=== PATIENT | male | born 1955 | race Caucasian/White ===

== ENCOUNTER 2018-07-12 07:54 | Day surgery (SDC) | payer OTHER ==
--- NOTE | 2018-07-05 11:52 | EKG ---
Test Date: 2018-07-05 Test Time: 11:52:34 Racing Board Marker: RONAN MEASUREMENT RESULTS: Intervals: Rate: 77 SC: 148 QRSD: 90 QT: 370 QTc: 418 Lena: P: 61 SC: 148 QRS: 33 T: 63 INTERPRETIVE STATEMENTS: Normal sinus rhythm Normal ECG Compared to ECG 11/23/2011 21:12:44 No significant changes Electronically Signed On 07-05-18 11:51:27 CUSTOMER ADVISOR SPECIALIST by Sonu Randall
--- NOTE | 2018-07-05 12:21 | RAD REPORT ---
EXAM DESCRIPTION: RAD - Chest Pa And Lat (2 Views) - 07/05/2018 12:14 pm CLINICAL HISTORY: preop Chest pain. COMPARISON: CHEST PA AND LAT 2 VIEW dated 02/12/2009; CHEST PA AND LAT 2 VIEW dated 07/29/2008 TECHNIQUE: PA and lateral views of the chest were obtained. FINDINGS: The lungs are hyperexpanded compatible with COPD. Mild chronic bilateral pleural thickenin g. The heart is upper limit of normal in size. No fracture or aggressive bony process. IMPRESSION: COPD without acute process identified.
[2018-07-05 12:44] LABS: Absolute Lymphocytes (CBC) 2.4 K/uL (0.7-4.9); Absolute Monocytes 0.9 K/uL (0.1-1.3); Absolute Neutrophil 7.7 K/uL (1.8-8.0); Basophils % 1.3 % (0-1.3); Eosinophils % 3.8 % (0-4.4); Hematocrit 49.3 % (39.6-49.0); Lymphocytes % 20.8 % (15.3-44.8); MPV 9.7 fL (7.6-11.3); Monocytes % 7.5 % (3.3-12.3); RBC Red Blood Cell Count 5.27 M/uL (4.33-5.43)
[2018-07-05 12:49] LABS: Potassium 3.7 mmol/L (3.5-5.1)
--- OUTSIDE RECORDS SUMMARY | 2018-07-12 08:01 | XMS REPORT | Clinical Summary ---
:1955 Author Organization [facility] Address [address] [place] [address] Care Team Providers Name Role Phone Susanne Loja MD Primary Care Provider Allergies Active Allergy Reactions Severity Noted Date Comments Penicillins Medications Medication Sig Dispensed Refills Start Date End Date Status amLODIPine (NORVASC) 10 0 06/26/2016 Active mg tablet clopidogrel (PLAVIX) 75 Take 75 mg by 0 06/26/2016 Active mg tablet mouth daily. gabapentin (NEURONTIN) 4 (four) times a 0 07/29/2016 Active 600 mg tablet day. TOUJEO SOLOSTAR 300 0 07/07/2016 Active unit/mL (1.5 mL) insulin pen losartan-hydrochlorothi Take 1 tablet by 0 06/26/2016 Active azide (HYZAAR) 100-12.5 mouth daily. mg per tablet rosuvastatin (CRESTOR) Take 20 mg by 0 06/26/2016 Active 20 MG tablet mouth daily. JANUMET 50-1,000 mg per Take by mouth 2 0 07/23/2016 Active tablet (two) times a day with meals. fenofibrate (TRICOR) Take 145 mg by 0 Active 145 MG tablet mouth daily. ranitidine (ZANTAC) 150 Take 150 mg by 0 Active MG tablet mouth 2 (two) times a day. metFORMIN (GLUCOPHAGE) Take 1 tablet 0 Active 1,000 mg tablet twice a day by oral route. Active Problems Problem Noted Date CAD in [place] artery 02/07/2017 Carotid disease, bilateral 02/07/2017 Essential hypertension 08/02/2016 Coronary arteriosclerosis 08/02/2016 Carotid artery disease 08/02/2016 Encounters Date Type Specialty Care Team Description 09/12/2017 Office Visit Cardiology Nasir Huff MD Essential hypertension (Primary Dx); Bilateral carotid artery disease; CAD in [place] artery after 07/11/2017 Social History Tobacco Use Types Packs/Day Years Used Date Current Every Day Smoker 0.5 Smokeless Tobacco: Never Used Alcohol Use Drinks/Week oz/Week Comments Yes Sex Assigned at Date Recorded Not on file Job Start Date Occupation Industry Not on file Not on file Not on file Travel History Travel Start Travel End No recent travel history available. Last Filed Vital Signs Vital Sign Reading Time Taken Blood Pressure 145/66 09/12/2017 8:06 AM CDT Pulse 73 09/12/2017 8:06 AM CDT Temperature - - Respiratory Rate - - Oxygen Saturation - - Inhaled Oxygen Concentration - - Weight 115 kg (253 lb) 09/12/2017 8:06 AM CDT Height 177.8 cm (5' 10") 09/12/2017 8:06 AM CDT Body Mass Index 36.3 09/12/2017 8:06 AM CDT Plan of Treatment Health Maintenance Due Date Last Done Comments COLON CANCER SCREENING 2004 SHINGLES VACCINES (1 of 2) 2004 INFLUENZA VACCINE 12/27/2017 Results Not on fileafter 07/11/2017 Insurance Payer Benefit Plan / Group Subscriber ID Type Phone Address BCBS BCBS CHOICE PPO/FEDERAL EMPL PPO xxxxxxxxxxxx PPO Advance Directives Patient has advance care planning documents on file. For more information, please contact:[place] [address]
[2018-07-12] MEDS ORDERED: CEFOXITIN/SWI 1gm 1 GM/10 ML SYR ONE (08:25)
[2018-07-12] MEDS ORDERED: NA CHLORIDE 0.9% 1,000 ML ONE (08:25)
[2018-07-12] MEDS ORDERED: PROPOFOL 200 MG/20 ML VIAL IV ONE (10:34)
[2018-07-12] MEDS ORDERED: FENTANYL CITR 100 MCG/2 ML ONE ×2 (10:35→11:03)
[2018-07-12] MEDS ORDERED: MIDAZOLAM HCL 2 MG/2 ML INJ ONE (10:36)
[2018-07-12] MEDS ORDERED: LIDOCAINE 1% MPF 2 ML AMPULE ONE (10:37)
[2018-07-12] MEDS ORDERED: ONDANSETRON 4 MG/2 ML VIAL ONE (10:37)
[2018-07-12] MEDS ORDERED: BUPIVACAINE 0.5% PF 10 ML VIAL ONE ×2 (10:42→10:43)
[2018-07-12 11:45] VITALS: O2SAT 94
[2018-07-12 12:23] VITALS: BP 112/58; TEMP 97.8
--- NOTE | 2018-07-12 22:26 | OP ---
Date of Procedure: 07/12/2018 Surgeon: Han Rizvi MD Preoperative Diagnoses: Perianal warts and hemorrhoids. Postoperative Diagnoses: Perianal warts and hemorrhoids. Procedures Performed: Exam under anesthesia, rigid proctoscopy, excision perianal warts x7. Estimated Blood Loss: Minimal. Specimen: Anal warts. Findings: As above. Anesthesia: General. Complications: None. Disposition: The patient tolerated the procedure in stable condition and was taken to the recovery i n good general condition. Description Of Procedure: The patient was brought to the OR and placed in supine position. General anesthesia was begun. The patient was placed in lithotomy position, prepped and draped in usual ster ile fashion. Exam under anesthesia revealed multiple anal warts in the anterior midline, posterior m idline, left superior, left lower, right superior, right middle, right lower. Rigid proctoscopy was performed. No evidence of intrarenal disease. Subsequently, Marcaine 0.5% was infiltrated locally. Harmonic Scalpel was used and excised all of the 7 areas where there were multiple anal warts. They were labeled appropriately and sent to Pathology. Then, wound was examined. There was no evidence of bleeding noted. Sterile dressing was applied. The patient was awakened and taken to Recovery in good general condition. Please note, the patient did have a few small hemorrhoids but they did not need any surgical intervention at this time. Subsequently, the patient was awakened and taken to Recovery in good general condition. MAGO/NURIA Voice ID: [id number] Report ID: [id number]
--- NOTE | 2018-07-12 22:35 | DS ---
Date of Discharge: 07/12/2018 Discharge Note: The patient will go to Day Surgery and home when stable. Disposition: Home. Condition: Stable. Discharge Instructions: Resume home medications and diet. Activity as tolerated. No heavy lifting. Sitz bath q.i.d. High-fiber diet. Metamucil 1 tablespoon t.i.d., Colace 100 mg p.o. b.i.d., Proct or HC 2.5% to anus b.i.d. and p.r.n., and Tylenol No. 3 one tablet p.o. q.4 h. p.r.n. pain. Follow u p in my office in 2 weeks, call for appointment /NURIA Voice ID: [id number] Report ID: [id number]
== END 2018-07-12 12:43 | disposition home or self-care (01) ==
LOC: OR 07:54
PROVIDERS: ATTEND Surgery
PROC: 0HB8XZZ Excision of Buttock Skin, External Approach (ICD-10-PCS; principal; 2018-07-12 09:00)
DX: A63.0 Anogenital (venereal) warts (principal); K64.9 Unspecified hemorrhoids; F17.210 Nicotine dependence, cigarettes, uncomplicated
CPT/HCPCS: 36415; 71046; 80048; 82962; 85025; 88305; 93005; J2001; J2250; J2405; J2704; J3010; J7030

== ENCOUNTER 2019-12-17 06:37 | Emergency (ER) | payer OTHER ==
--- OUTSIDE RECORDS SUMMARY | 2019-12-17 06:39 | XMS REPORT | Clinical Summary ---
:1955 Author Organization [facility] Address [address] [place] [address] Care Team Providers Name Role Phone Susanne [...] 0 07/29/2016 Active 600 mg tablet day. 4-5 times a day TOUJEO SOLOSTAR 300 85 0 07/07/2016 Active unit/mL (1.5 mL) insulin pen losartan-hydrochlorothi Take 1 tablet by 0 7 Active azide (HYZAAR) 100-12.5 mouth daily. mg [...] tablet twice a day by oral route. pantoprazole (PROTONIX) Take 20 mg by 0 Active 20 MG EC tablet mouth 2 (two) times a day. Active Problems Problem Noted Date CAD in [place] artery 02/07/2017 Carotid disease, bilateral 02/07/2017 Essential hypertension 08/02/2016 Coronary arteriosclerosis 08/02/2016 Carotid artery disease 08/02/2016 Encounters Date Type Specialty Care Team Description 07/02/2019 Office Visit Cardiology Janice Umanzor MD Pre-op e xam (Primary Dx); CAD in [place] a rtery; Essential hyper tension 06/19/2019 Orders Only Cardiology Gala Prasad MA CAD in [place] artery (Primary Dx) 06/19/2019 Orders Only Cardiology Kanwal Yepez MA after 12/16/2018 Social History Tobacco Use Types Packs/Day Years Used Date Current Every Day Smoker 0.5 Smokeless Tobacco: Never Used Alcohol Use Drinks/Week oz/Week Comments Yes Sex Assigned at Date Recorded Not on file Job Start Date Occupation Industry Not on file Not on file Not on file Travel History Travel Start Travel End No recent travel history available. Last Filed Vital Signs Not on file Plan of Treatment Date Type Specialty Care Team Description 06/30/2020 Office Visit Cardiology Janice Umanzor MD [address] [facility] [address] [place], [place] [phone] Health Maintenance Due Date Last Done Comments COLONOSCOPY SCREENING 2004 SHINGLES VACCINES (#1) 2004 65+ PNEUMOCOCCAL VACCINE (1 of 2 - PCV13) 2019 INFLUENZA VACCINE 12/28/2019 03/12/2019 Procedures Procedure Name Priority Date/Time Associated Comments Diagnosis NM MYOCARDIAL Routine 07/12/2019 4:36 PM Pre-op exam Results for this PERFUSION STRESS EQUIPMENT DRIVER CAD in [place] procedure are in REST 1 DAY artery the results section. CV STRESS TEST Routine 07/09/2019 8:15 AM Pre-op exam Results for this EQUIPMENT DRIVER CAD in [place] procedure are in artery the results section. ECG 12-LEAD Routine 07/02/2019 2:02 PM Pre-op exam Results for this EQUIPMENT DRIVER procedure are i n the results section. after 12/16/2018 Results Nm myocardial perfusion (07/12/2019 4:36 PM EQUIPMENT DRIVER) Pathologist Sig nature Target HR 155.00 bpm Expedit.usID Specimen Narrative Performed At [facility] Nuclear Cardi ology and Cardiac CT [address] [address] Myocardial Pe rfusion Imaging Report Stress ECG tracings are availab le in [employer], [employer] and [employer] All ECG interpretations a re included in this report Pat.Name: LYSSA SANCHES Pat.ID: [id number] .Date: 07/09/2019 Refer.MD: JANICE UMANZOR MD Exam Time: 10:28:00 AM Study Type:Myocardial Perfusion Imaging Height: 70in Weight: 253lb BSA: 2.31 m2 Ag e: 1955,64Y Sex: MALE Nuclea r Tech:Koby Jerez [facility] Nuclear Event ID:[id number] Order ID: [id number] Reason for Study:CAD, unspecified*, Pre Op Procedures: Single Day Rest / Stress Race: C Clinical Symptoms:Regadenoson SUMMARY: BASELINE ECG Normal Sinus Rhythm STRESS TEST RESULTS Maximal Predicted HR 155 beats/minute 85% Maximal Predicted HR 132 beats/minute Stress Test Duration 1 minutes 00 seco nds Resting Heart Rate 80 beats/minute Max imal Heart Rate 97 beats/minute Resting Blood Pressure 146/88 mmHg Max imal Blood Pressure 146/88 mmHg % Maximal Heart Rate Achieved 93% Symptoms During Test Flushing, Headach e Reason for Stopping Test As per regade noson protocol Maximal ST-segment shift None Stress-Induced Arrhythmias None Ischemic electrocardiographic changes (S T-segment depression) did not occur at peak regadenoson stress. STRESS TEST INTERPRETATION Normal vanessa l regadenoson stress test. SCINTIGRAPHIC RESULTS Perfusion Defect Size (% LV) 0 % Total 0 % Ischemia 0 % Scar Left Ventricular Perfusion Results There is normal tracer distribution duri ng stress and rest. Gated SPECT Results The post-stress left ventricular ejectio n fraction is 53 % with normal regional wall motion and left ventricula r thickening. Left ventricular end-diastolic volume is 150 ml; end-systolic volume is 70 ml. The left ventricle is of normal size at stress and at rest. The right ventricle is of normal size with n ormal wall motion. Conclusion Normal regadenoson Tc-99m sestamibi myoc ardial perfusion study. The left ventricular ejection fraction is no rmal. Comments Patients with a normal stress myocardial perfusion study have a low (< 1%) annual risk of cardiac or nonf atal myocardial infarction. Study Quality/Artifacts The study quality is good. The mild redu ction in mid and basal inferior wall counts during stress is due to diaphragmatic and other soft tissue attenuation artifacts rather than coronary artery disease. Comparison to Previous Study None available. FINDINGS: Signed 07/11/2019 07:02 PM Ashutosh Calderon MD Procedure Note Interface, Radiology Results In - 2019 7:02 PM [facility] Nuclear Cardiology and Cardiac CT [address] [place] [address] Myocardial Perfusion I maging Report Stress ECG tracings are available in [employer], [employer] and [employer] All ECG interpretations are in cluded in this report Pat.Name: LYSSA SANCHES I D: [id number] .Date: 07/09/2019 Refer .MD: JANICE UMANZOR MD Exam Time: 10:28:00 AM Study Type:Myocardial Perfusion Imaging Height: 70in Weigh t: 253lb BSA: 2.31 m2 Age: 1 1955,64Y Sex: MALE Nucle ar Tech:Koby Jerez [facility] Nuclear Event ID:[id number] Order ID: [id number] Reason for Study:CAD, unspecified*, Pre Op Procedures: Single Day Rest / Stress Race: C Clinical Symptoms:Regadenoson SUMMARY: BASELINE ECG Normal Sinus Rhythm STRESS TEST RESULTS Maximal Predicted HR 155 beats/minute 8 5% Maximal Predicted HR 132 beats/minute Stress Test Duration 1 minutes 00 secon ds Resting Heart Rate 80 beats/minute Maxi mal Heart Rate 97 beats/minute Resting Blood Pressure 146/88 mmHg Maxi mal Blood Pressure 146/88 mmHg % Maximal Heart Rate Achieved 93% Symptoms During Test Flushing, Headache Reason for Stopping Test As per regaden oson protocol Maximal ST-segment shift None Stress-Induced Arrhythmias None Ischemic electrocardiographic changes (S T-segment depression) did not occur at peak regadenoson stress. STRESS TEST INTERPRETATION Normal vanessa l regadenoson stress test. SCINTIGRAPHIC RESULTS Perfusion Defect Size (% LV) 0 % Total 0 % Ischemia 0 % Scar Left Ventricular Perfusion Results There is normal tracer distribution duri ng stress and rest. Gated SPECT Results The post-stress left ventricular ejectio n fraction is 53 % with normal regional wall motion and left ventricula r thickening. Left ventricular end-diastolic volume is 150 ml; end-systolic volume is 70 ml. The left ventricle is of normal size at stress and at rest. The right ventricle is of normal size with n ormal wall motion. Conclusion Normal regadenoson Tc-99m sestamibi myoc ardial perfusion study. The left ventricular ejection fraction is no rmal. Comments Patients with a normal stress myocardial perfusion study have a low (< 1%) annual risk of cardiac or nonf atal myocardial infarction. Study Quality/Artifacts The study quality is good. The mild redu ction in mid and basal inferior wall counts during stress is d ue to diaphragmatic and other soft tissue attenuation artifacts rather than coronary artery disease. Comparison to Previous Study None available. FINDINGS: Signed 07/11/2019 07:02 PM Ashutosh Calderon MD Performing Organization Address City/State/Zipcode Phone Number [facility] [phone] [place] [address] Cv stress test (07/09/2019 8:15 AM EQUIPMENT DRIVER) Resting HR 83 [facility] Resting BP 146 [facility] Peak MET Achieved 1.0 H MUSE Protocol Name Melissa [facility] Time in Exercise 00:01:00 [facility] Phase Max Systolic BP 146 [facility] Max Diastolic BP 88 [facility] Max Heart Rate 97 [facility] Max Predicted Heart 155 [facility] Rate Target HR Formula (220 - Age)*85% [facility] Test Indication CORONARY ARTERY DISEASE [facility] Arrhy During Ex [facility] ECG Interp Before EX [facility] ECG Interp During Ex [facility] Ex Summary Comment H MUSE Chest Pain Statement none [facility] Overall HR Response [facility] to Exercise Overall BP Response [facility] To Exercise Reason for As per Lexiscan H MUSE Termination protocol Stress Test -Waveform interpreted [facility] Impression in report associated with image study. No interpretation is provided as part of this Stress ECG report.-Electronically Signed By Yumiko HEATON, Ashutosh Leary ([id number]), commissioning editor Dg Vargas ([id number]) on 07/15/2019 3:43:03 PM Specimen Narrative Performed At This result has an attachment that is no t available. Performing Organization Address City/[facility] Phone Number [facility] [address] [place] [address] ECG 12 lead (07/02/2019 2:02 PM EQUIPMENT DRIVER) Pathologist Sig nature Ventricular rate 89 [facility] Atrial rate 89 [facility] OK interval 150 [facility] QRSD interval 92 [facility] QT interval 364 [facility] QTC interval 442 [facility] P axis 1 62 [facility] QRS axis 1 73 [facility] T wave axis 19 H MUSE EKG impression Normal sinus [facility] rhythm-Normal ECG-No previous ECGs available-Electronicall y Signed By Darwin HEATON, [facility] ([id number]) on 07/02/2019 2:50:05 PM Specimen Narrative Performed At This result has an attachment that is no t available. Performing Organization Address City/State/Zipcode Phone Number [employer] [facility] [address] [place] [address] after 12/16/2018 Advance Directives For more information, please contact: [phone] Type Date Recorded Patient Search Planner Explanati on Advance Directives, Living Will and Medical Power of Manager Clinical Research
[2019-12-17] MEDS ORDERED: NA CHLORIDE 0.9% 1,000 ML ONE (07:15)
--- NOTE | 2019-12-17 07:45 | RAD REPORT ---
EXAM DESCRIPTION: RAD - Chest Single View - 12/17/2019 7:26 am CLINICAL HISTORY: COUGH COMPARISON: Two view chest June 2018 TECHNIQUE: AP portable chest image was obtained 12/17/2019 7:26 am . FINDINGS: No focal mass or consolidation. Prominent interstitial pattern is similar to comparison. N o ground-glass opacification confirmed. Heart and vasculature are normal. No measurable pleural effus ion and no pneumothorax. No acute bony abnormality seen. No acute aortic findings suspected. IMPRESSION: No acute cardiopulmonary process. Chest is not significantly different from comparison.
[2019-12-17 08:10] LABS: Absolute Lymphocytes (CBC) 0.6 K/uL (0.7-4.9); Basophils % 0.6 % (0-1.3); Hematocrit 42.5 % (39.6-49.0); Lymphocytes % 5.5 % (15.3-44.8); MPV 8.8 fL (7.6-11.3); RBC Red Blood Cell Count 4.56 M/uL (4.33-5.43)
[2019-12-17 08:24] LABS: Potassium 3.7 mmol/L (3.5-5.1)
[2019-12-17 08:50] LABS: Platelet Estimate ADEQ
[2019-12-17 08:51] LABS: Blood Morphology Comment NOT SEEN (NOT SEEN)
[2019-12-17 10:32] LABS: Troponin (Emerg Dept Use Only) 0.04 ng/mL (0.0-0.045)
--- NOTE | 2019-12-17 10:50 | EDPHYS ---
Physician Documentation [facility] Name: Marc Sanches Jr Age: 64 yrs Sex: Male : 1955 Arrival Date: 12/17/2019 Time: 06:39 Bed 6 Private MD: ED Physician Jesse Ambrocio HPI: 12/16 08:23 This 64 yrs old Male presents to ER via Wheelchair with complaints of Fever, kb Weakness. 08:23 The patient or guardian reports cough, that is intermittent, described as mild, with no kb sputum, flu symptoms, low-grade fever. Onset: The symptoms/episode began/occurred this morning. Severity of symptoms: At their worst the symptoms were mild, in the emergency department the symptoms are unchanged. Modifying factors: The symptoms are alleviated by nothing, the symptoms are aggravated by nothing. Associated signs and symptoms: Pertinent positives: fever, Pertinent negatives: chest pain, diarrhea, ear ache, nausea, rhinorrhea, sore throat, vomiting. The patient has not experienced similar symptoms in the past. The patient has not recently seen a physician. "My thinks I have the coronavirus." Pt states he had a little trouble getting out of bed this morning so his told him he had some weakness. States also told him he had fever last night because he was sweating, pt thinks it was the "bed clothes." Pt reports slight cough for a week, but states it is due to allergies. . Historical: - Allergies: 06:59 Penicillins; mt2 - PMHx: 06:59 Diabetes - IDDM; Hypertension; High Cholesterol; mt2 - Immunization history:: Adult Immunizations up to date. - Social history:: Smoking status: Patient denies any tobacco usage or history of. Patient/guardian denies using alcohol, street drugs. ROS: 08:22 ENT: Negative for injury, pain, and discharge, Neck: Negative for injury, pain, and kb swelling, Cardiovascular: Negative for chest pain, palpitations, and edema, Abdomen/GI: Negative for abdominal pain, nausea, vomiting, diarrhea, and constipation, Back: Negative for injury and pain, MS/Extremity: Negative for injury and deformity, Skin: Negative for injury, rash, and discoloration. 08:22 Constitutional: Positive for fever, Negative for body aches, chills, fatigue, malaise, poor PO intake, weight loss. 08:22 Neuro: Positive for weakness. Exam: 08:22 Constitutional: This is a well developed, well nourished patient who is awake, alert, kb and in no acute distress. Head/Face: Normocephalic, atraumatic. Chest/axilla: Normal chest wall appearance and motion. Nontender with no deformity. No lesions are appreciated. Cardiovascular: Regular rate and rhythm with a normal S1 and S2. No gallops, murmurs, or rubs. Normal PMI, no JVD. No pulse deficits. Respiratory: Lungs have equal breath sounds bilaterally, clear to auscultation and percussion. No rales, rhonchi or wheezes noted. No increased work of breathing, no retractions or nasal flaring. Abdomen/GI: Soft, non-tender, with normal bowel sounds. No distension or tympany. No guarding or rebound. No evidence of tenderness throughout. Skin: Warm, dry with normal turgor. Normal color with no rashes, no lesions, and no evidence of cellulitis. MS/ Extremity: Pulses equal, no cyanosis. Neurovascular intact. Full, normal range of motion. Neuro: Awake and alert, GCS 15, oriented to person, place, time, and situation. Cranial nerves II-XII grossly intact. Motor strength 5/5 in all extremities. Sensory grossly intact. Cerebellar exam normal. Normal gait. Vital Signs: 06:53 BP 90 / 68; Pulse 101; Resp 16; Temp 99.4(O); Pulse Ox 95% on R/A; Pain 0/10; mt2 07:03 Weight 106.14 kg; mt2 07:56 BP 103 / 54; Pulse 95; Resp 20; Pulse Ox 92% on R/A; jr10 08:30 BP 108 / 56; Pulse 90; Resp 19; Pulse Ox 96% ; jl7 09:23 BP 94 / 66; Pulse 93; Resp 18; Temp 99.1; Pulse Ox 96% ; jl7 10:24 BP 94 / 55; Resp 18; Temp 99.2(O); Pulse Ox 96% on R/A; jr10 11:07 BP 113 / 62; Pulse 92; Resp 17; Pulse Ox 97% ; jl7 NIH Stroke Scale Scores: 07:01 NIHSS Score: 0 mt2 MDM: 06:53 Patient medically screened. kb 08:22 Data reviewed: vital signs, nurses notes. Data interpreted: Pulse oximetry: on room air kb is 95 %. Interpretation: normal. 09:32 Counseling: I had a detailed discussion with the patient and/or guardian regarding: the kb historical points, exam findings, and any diagnostic results supporting the discharge/admit diagnosis, lab results, radiology results, the need for outpatient follow up, a family practitioner, to return to the emergency department if symptoms worsen or persist or if there are any questions or concerns that arise at home. ED course: Pt in no distress. Moves all extremities, resp even and unlabored. O2 96% on room air. . 10:48 ED course: ERP evaluated pt as well. Pt would like to go home. All in agreement with outpatient follow up and pt will return for worsening symptoms. . 12/16 07:02 Order name: CBC with Diff; Complete Time: 08:53 kb 12/16 07:02 Order name: Basic Metabolic Panel; Complete Time: 08:27 kb 12/16 07:02 Order name: COVID-19 kb 12/16 07:17 Order name: Blood Culture Adult (2) kb 12/16 07:17 Order name: Procalcitonin; Complete Time: 08:53 kb 12/16 08:41 Order name: Manual Differential; Complete Time: 08:53 EDMS 12/16 07:02 Order name: IV Start; Complete Time: 07:47 kb 12/16 07:02 Order name: Chest Single View XRAY; Complete Time: 07:52 kb 12/16 10:03 Order name: EKG; Complete Time: 10:03 kb 12/16 10:11 Order name: BNP; Complete Time: 10:32 kb 12/16 10:11 Order name: Troponin (emerg Dept Use Only) kb 12/16 10:12 Order name: Troponin (Emerg Dept Use Only); Complete Time: 10:32 EDMS 12/16 07:13 Order name: O2 Per Protocol; Complete Time: 07:14 jl7 12/16 08:53 Order name: Vital Signs; Complete Time: 09:24 kb Administered Medications: 07:28 Drug: NS 0.9% 1000 ml Route: IV; Rate: 1000 ml; Site: right hand; jr10 09:40 Follow up: Response: No adverse reaction; IV Status: Completed infusion jr10 09:40 Follow up: IV Intake: 1000ml jl7 Disposition: 12:26 Co-signature as Attending Physician, Jesse Ambrocio MD. rn Disposition: 12/17/19 10:49 Discharged to Home. Impression: Acute upper respiratory infection, unspecified, Weakness. - Condition is Stable. - Discharge Instructions: Weakness, Ddth-kg-Dufq, Viral Respiratory Infection, Okrs-Ci-Aact, COVID-19. - Medication Reconciliation Form, Thank You Letter, Antibiotic Education, Prescription Opioid Use form. - Follow up: Emergency Department; When: As needed; Reason: Worsening of condition. Follow up: Private Physician; When: 2 - 3 days; Reason: Recheck today's complaints, Continuance of care, Re-evaluation by your physician. NIH Stroke Scale - NIH Stroke Score Date: 12/17/2019 Time: 07:01 Total Score = 0 1a. Level of Consciousness (LOC) - 0(Alert) 1b. Level of Consciousness (LOC) (Year \\T\\ Age) - 0(Both) 1c. LOC Commands (Open \\T\\ Closes Eyes/Repeater Chief) - 0(Both) 2. Best Gaze (Lateral Gaze Paresis) - 0(Normal) 3. Visual Field Loss - 0(No visual loss) 4. Facial Palsy - 0(Normal) 5a. Left Arm: Motor (10-second hold) - 0(No drift) 5b. Right Arm: Motor (10-second hold) - 0(No drift) 6a. Left Leg: Motor (5-second hold - always test supine) - 0(No drift) 6b. Right Leg: Motor (5-second hold - always test supine) - 0(No drift) 7. Limb Ataxia (finger/nose \\T\\ heel/haro - test with eyes open) - 0(Absent) 8. Sensory Loss (pinprick arms/legs/face) - 0(Normal) 9. Best Language: Aphasia (description/naming/reading) - 0(No aphasia) 10. Dysarthria (speech clarity - read or repeat words) - 0(Normal) 11. Extinction and Inattention (visual/tactile/auditory/spatial/personal) - 0(No abnormality) Initials: mt2 Signatures: Dispatcher [employer] EDJaquelin Godfrey, HEAD SULFIDE OPERATOR-C HEAD SULFIDE OPERATOR-Ckb AmbrocioJesse bustos MD MD rn Leal, Jahala RN RN jl7 Mariajose Saunders, RN RN mt2 Mandi Rosales, RN RN jr10 Corrections: (The following items were deleted from the chart) 10:49 10:49 12/17/2019 10:49 Discharged to Home. Impression: Cough. Condition is kb Stable. Forms are Medication Reconciliation Form, Thank You Letter, Antibiotic Education, Prescription Opioid Use. Follow up: Emergency Department; When: As needed; Reason: Worsening of condition. Follow up: Private Physician; When: 2 - 3 days; Reason: Recheck today's complaints, Continuance of care, Re-evaluation by your physician. kb 11:09 10:49 12/17/2019 10:49 Discharged to Home. Impression: Acute upper respiratory jl7 infection, unspecified; Weakness. Condition is Stable. Discharge Instructions: Cough, Adult, Yiyr-gw-Pgkb, COVID-19. Forms are Medication Reconciliation Form, Thank You Letter, Antibiotic Education, Prescription Opioid Use. Follow up: Emergency Department; When: As needed; Reason: Worsening of condition. Follow up: Private Physician; When: 2 - 3 days; Reason: Recheck today's complaints, Continuance of care, Re-evaluation by your physician. kb
--- NOTE | 2019-12-17 10:50 | ER ---
Nurse's Notes [facility] Name: Marc Sanches Jr Age: 64 yrs Sex: Male : 1955 Arrival Date: 12/17/2019 Time: 06:39 Bed 6 Private MD: Diagnosis: Acute upper respiratory infection, unspecified;Weakness Presentation: 12/16 06:53 Chief complaint: Patient states: PER PT WAS HAVING TROUBLE GETTING OUT OF WATERBED. mt2 SPOUSE ATTRIBUTED TO WEAKNESS AND BROUGHT HIM IN. PT A\T\OX3. SPEECH CLEAR MOVES ALL EXTREMITIES. STATES INTERMITTENT COUGH AND FEVER AT HOME. DENIES SOB. Coronavirus screen: Patient reports a cough. Patient denies shortness of breath or difficulty breathing. Patient reports a measured and/or subjective temperature greater than 100.4F. Patient denies travel on a cruise ship or to a country the [facility] currently lists as an affected area. Patient denies contact with known and/or suspected case of COVID-19. Patient instructed to continue to wear a mask when interacting with others. Patient moved to private room, placed in contact and droplet isolation with eye protection until further assessment. Ebola Screen: No symptoms or risks identified at this time. Initial Sepsis Screen: Does the patient meet any 2 criteria? No. Patient's initial sepsis screen is negative. Does the patient have a suspected source of infection? No. Patient's initial sepsis screen is negative. Risk Assessment: Do you want to hurt yourself or someone else? Patient reports no desire to harm self or others. Onset of symptoms was December 17, 2019. 06:53 Method Of Arrival: Wheelchair mt2 06:53 Acuity: DEYSI 3 mt2 Triage Assessment: 06:59 General: Appears in no apparent distress. Behavior is calm, cooperative. Pain: Denies mt2 pain. EENT: No deficits noted. Neuro: Reports weakness. Cardiovascular: No deficits noted. Respiratory: Reports cough that is. GI: No deficits noted. : No deficits noted. Derm: No deficits noted. Musculoskeletal: No deficits noted. Historical: - Allergies: 06:59 Penicillins; mt2 - PMHx: 06:59 Diabetes - IDDM; Hypertension; High Cholesterol; mt2 - Immunization history:: Adult Immunizations up to date. - Social history:: Smoking status: Patient denies any tobacco usage or history of. Patient/guardian denies using alcohol, street drugs. Screenin:00 Abuse screen: Denies threats or abuse. Nutritional screening: No deficits noted. mt2 Tuberculosis screening: No symptoms or risk factors identified. Fall Risk Gait- Weak (10 pts.). Assessment: 07:01 The patient is alert, and able to follow commands. The patient does not exhibit slurred mt2 or garbled speech. The patient is not exhibiting difficulty speaking. The patient does not exhibit difficulty understanding words. 07:03 Reassessment: SPOUSE NAME IS JENNIFER #[phone]. mt2 07:20 General: Appears in no apparent distress. Behavior is calm, cooperative. Neuro: No jr10 deficits noted. Cardiovascular: No deficits noted. Reports fatigue, Denies chest pain, nausea, shortness of breath. Respiratory: Breath sounds are clear bilaterally. Denies cough, shortness of breath pain with respiration. GI: No deficits noted. : No deficits noted. Derm: No deficits noted. Musculoskeletal: Reports weakness in generalized weakness reported. 09:23 Reassessment: Patient appears in no apparent distress at this time. No changes from jl7 previously documented assessment. Patient and/or family updated on plan of care and expected duration. Pain level reassessed. Patient is alert, oriented x 3, equal unlabored respirations, skin warm/dry/pink. 10:30 Reassessment: MD at bedside speaking with pt about POC, awaiting additional test jr10 results at this time. Will continue to monitor and assess. . Vital Signs: 06:53 BP 90 / 68; Pulse 101; Resp 16; Temp 99.4(O); Pulse Ox 95% on R/A; Pain 0/10; mt2 07:03 Weight 106.14 kg; mt2 07:56 BP 103 / 54; Pulse 95; Resp 20; Pulse Ox 92% on R/A; jr10 08:30 BP 108 / 56; Pulse 90; Resp 19; Pulse Ox 96% ; jl7 09:23 BP 94 / 66; Pulse 93; Resp 18; Temp 99.1; Pulse Ox 96% ; jl7 10:24 BP 94 / 55; Resp 18; Temp 99.2(O); Pulse Ox 96% on R/A; jr10 11:07 BP 113 / 62; Pulse 92; Resp 17; Pulse Ox 97% ; jl7 NIH Stroke Scale Scores: 07:01 NIHSS Score: 0 mt2 ED Course: 06:39 Patient arrived in ED. ds1 06:40 Mariajose Saunders, SAVANNA is Primary Nurse. mt2 06:53 Jaquelin Ruff FNP-C [facility]. kb 06:53 Jesse Ambrocio MD is Attending Physician. kb 06:58 Triage completed. mt2 06:59 Arm band placed on right wrist. mt2 07:00 Patient has correct armband on for positive identification. Placed in gown. Bed in low mt2 position. Call light in reach. Side rails up X 1. 07:14 Kathe Stratton, SAVANNA is Primary Nurse. jl7 07:15 Patient has correct armband on for positive identification. Bed in low position. Call jr10 light in reach. Side rails up X2. Pulse ox on. NIBP on. 07:26 Chest Single View XRAY In Process Unspecified. EDMS 07:28 Inserted saline lock: 20 gauge in right hand, using aseptic technique. Blood collected. jr10 Flushed right hand. 07:28 Initial lab(s) drawn, by ED staff, sent to lab. jl7 10:31 Primary Nurse role handed off by Kathe Stratton RN jr10 10:31 Mandi Rosales is Primary Nurse. jr10 11:08 No provider procedures requiring assistance completed. IV discontinued, intact, jl7 bleeding controlled, No redness/swelling at site. Pressure dressing applied. Administered Medications: 07:28 Drug: NS 0.9% 1000 ml Route: IV; Rate: 1000 ml; Site: right hand; jr10 09:40 Follow up: Response: No adverse reaction; IV Status: Completed infusion jr10 09:40 Follow up: IV Intake: 1000ml jl7 Intake: 09:40 IV: 1000ml; Total: 1000ml. jl7 Outcome: 10:49 Discharge ordered by . kb 11:09 Discharged to home ambulatory. jl7 11:09 Condition: stable 11:09 Discharge instructions given to patient, Instructed on discharge instructions, follow up and referral plans. Demonstrated understanding of instructions, follow-up care. 11:09 Patient left the ED. jl7 NIH Stroke Scale - NIH Stroke Score Date: 12/17/2019 Time: 07:01 Total Score = 0 1a. Level of Consciousness (LOC) - 0(Alert) 1b. Level of Consciousness (LOC) (Year \T\ Age) - 0(Both) 1c. LOC Commands (Open \T\ Closes Eyes/Video Recorder Mechanic) - 0(Both) 2. Best Gaze (Lateral Gaze Paresis) - 0(Normal) 3. Visual Field Loss - 0(No visual loss) 4. Facial Palsy - 0(Normal) 5a. Left Arm: Motor (10-second hold) - 0(No drift) 5b. Right Arm: Motor (10-second hold) - 0(No drift) 6a. Left Leg: Motor (5-second hold - always test supine) - 0(No drift) 6b. Right Leg: Motor (5-second hold - always test supine) - 0(No drift) 7. Limb Ataxia (finger/nose \T\ heel/haro - test with eyes open) - 0(Absent) 8. Sensory Loss (pinprick arms/legs/face) - 0(Normal) 9. Best Language: Aphasia (description/naming/reading) - 0(No aphasia) 10. Dysarthria (speech clarity - read or repeat words) - 0(Normal) 11. Extinction and Inattention (visual/tactile/auditory/spatial/personal) - 0(No abnormality) Initials: mt2 Addendum: 12/19/2019 13:43 Addendum: COVID-19 Result: Negative result given to RN to notify pt. Contacted dm5 by: Feliz Stone RN. Notified pt of negative COVID 19 swab results. Pt advised that even with a negative test result they should remain in isolation until symptom free for 3 days without medication. Pt also advised to return to the ED for worsening symptoms. Signatures: Dispatcher [employer] EDCO Jaquelin Ruff, VICE PRESIDENT OF TALENT MANAGEMENT-C VICE PRESIDENT OF TALENT MANAGEMENT-Sana Wood RN RN dm5 Nadya More ds1 Kathe Stratton RN RN jl7 Mariajose Saunders RN RN mt2 Mandi Rosales, RN RN jr10
[2019-12-18 02:15] VITALS: TEMP 99.2
[2019-12-18 02:16] VITALS: BP 113/62; O2SAT 97
--- NOTE | 2019-12-18 12:35 | EKG ---
Test Date: 2019-12-17 Test Time: 10:34:43 Refinery Pipeline Operator: YA MEASUREMENT RESULTS: Intervals: Rate: 92 PA: 150 QRSD: 84 QT: 354 QTc: 437 Taylor: P: 50 PA: 150 QRS: 52 T: 50 INTERPRETIVE STATEMENTS: Sinus rhythm with premature atrial complexes Otherwise normal ECG Compared to ECG 07/05/2018 11:52:34 Atrial premature complex(es) now present Electronically Signed On 12-18-19 12:31:46 CDT by Serafin Kelsey
== END 2019-12-17 11:09 | disposition home or self-care (01) ==
LOC: ER 06:37
DX: J06.9 Acute upper respiratory infection, unspecified (principal); Z20.828 Contact with and (suspected) exposure to other viral communicable diseases; R53.1 Weakness; I10 Essential (primary) hypertension; Z88.0 Allergy status to penicillin
CPT/HCPCS: 96361; 93005; 87040 ×2; 85025; 80048; 36415; 84484; 84145; 83880; 71045; 96360; 99284; U0001; J7030

== ENCOUNTER 2020-10-25 21:09 | Inpatient (IN) | payer OTHER, MEDICARE ==
--- OUTSIDE RECORDS SUMMARY | 2020-10-25 21:12 | XMS REPORT | Continuity of Care Document ---
:1955 Author Organization [facility] t Address [address] 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 Active Supply [place] 02-07 Methodi artery artery 00:00: st 00 Carotid Carotid Disease Active Supply disease, disease, 02-07 Method i bilateral bilateral 00:00: st 00 Essential Essential Disease Active Toni ston hypertensi hypertensi 3-07 Me thodi on on 00:00: st 00 Coronary Coronary Disease Active [place] arterioscl arterioscl 3-07 Me thodi erosis erosis 00:00: st 00 Carotid Carotid Disease Active Supply artery artery 3-07 Methodi disease disease 00:00: st 00 Allergies, Adverse Reactions, Alerts Allergy Allergy Status Severity Reaction(s) Onset Inactive Treating Comm ents Source Name Type Date Date Clinician Penicill Propensi Active [place] ins ty to Methodi adverse st reaction s to drug Social History Social Habit Start Date Stop Date Quantity Comments Source Cigarettes smoked 2019-07-02 2019-07-02 Óscar Adams current (pack per 00:00:00 00:00:00 day) - Reported Tobacco use and 2019-07-02 2019-07-02 Never used Óscar flowersodist exposure 00:00:00 00:00:00 Alcohol intake 2019-07-02 2019-07-02 Current drinker [place] [facility] 00:00:00 00:00:00 of alcohol (finding) Sex [birth year] Óscar flowersodi 00:00:00 00:00:00 Smoking Status Start Date Stop Date Source Current every day smoker 2019-07-02 00:00:00 Tonitierra kaplan [facility] Medications Ordered Filled Start Stop Current Ordering Indication Dosage Frequency Signature Comments Components Source Medication Medication Date Date Medication? Clinician (SIG) Name Name hydrALAZINE 2020- No 10mg [id number] Take 10 mg [place] (APRESOLINE -02 06-30 [id number] by mouth 3 Methodi ) 10 MG 14:29: 00:00 3D (three) st tablet 20 :00 times a day. fenofibrate 2020- Yes 145mg QD Take 145 [place] (TRICOR) 2-02 mg by Methodi 145 MG 13:59: mouth st tablet 39 daily. ranitidine 2020-0 Yes 150mg Q.5D Take 150 [place] (ZANTAC) 2-02 mg by Methodi 150 MG 13:59: mouth 2 st tablet 39 (two) times a day. metFORMIN Yes Take 1 [place] (GLUCOPHAGE 2-02 tablet Method i ) 1,000 mg 13:59: twice a st tablet 39 day by oral route. pantoprazol 2020-0 Yes 20mg Q.5D Take 20 mg [place] e 2-02 by mouth 2 Methodi (PROTONIX) 13:59: (two) st 20 MG EC 39 times a tablet day. losartan 2020-0 Yes 100mg QD Take 100 [place] (COZAAR) 2-02 mg by Methodi 100 MG 13:59: mouth st tablet 39 daily. hydroCHLORO 2020- Yes 12.5mg QD Take 12.5 [place] thiazide 2-02 mg by Methodi (HYDRODIURI 13:59: mouth st L) 12.5 MG 39 daily. tablet hydrALAZINE 2021- No 25mg Q.[id number] Take 1 Supply (APRESOLINE 06-30 [id number] tablet (25 Methodi ) 25 MG 00:00: 23:59 3D mg total) st tablet 00 :00 by mouth 3 (three) times a day. gabapentin Yes Q.25D 4 (four) [place] (NEURONTIN) 3-03 times a Metho di 600 mg 00:00: day. 4-5 st tablet 00 times a day JANUMET Yes Q.5D Take by [place] 50-1,000 mg 2-25 mouth 2 Metho di per tablet 00:00: (two) st 00 times a day with meals. TOUJEO Yes 85 Supply SOLOSTAR 09 Methodi 300 unit/mL 00:00: st (1.5 mL) 00 insulin pen amLODIPine Yes Supply (NORVASC) 06-26 Methodi 10 mg 00:00: st tablet 00 clopidogrel Yes 75mg QD Take 75 mg Supply (PLAVIX) 75 06-26 by mouth Meth sejal mg tablet 00:00: daily. st 00 rosuvastati Yes 20mg QD Take 20 mg Supply n (CRESTOR) 06-26 by mouth Meth sejal 20 MG 00:00: daily. st tablet 00 losartan-hy 2020- No 1{tbl} QD Take 1 [place] drochloroth 06-26 tablet by Me britt arechiga 00:00: 00:[address] (HYZAAR) 00 :00 daily. 100-12.5 mg per tablet Vital Signs Vital Name Observation Time Observation Value Comments Source Systolic blood 2020-06-30 13:55:00 160 mm[Hg] Leni lewis [facility] pressure Diastolic blood 2020-06-30 13:55:00 78 mm[Hg] Pablo Adams pressure Heart rate 2020-06-30 13:55:00 84 /min Óscar Adams Body weight 2020-06-30 13:55:00 108.863 kg Óscar Adams BMI 2020-06-30 13:55:00 34.44 kg/m2 [place] [facility] Procedures This patient has no known procedures. Plan of Care Planned Activity Planned Date Details Comments Source Future Scheduled 2020-12-27 INFLUENZA VACCINE [place] [facility] Test 00:00:00 [code = INFLUENZA VACCINE] Future Scheduled 2004 [facility] Test 00:00:00 [code = COLONOSCOPY SCREENING] Future Scheduled 2004 SHINGLES VACCINES (#1) [place] [facility] Test 00:00:00 [code = SHINGLES VACCINES (#1)] Future Scheduled 1972 Hepatitis C screening [place] [facility] Test 00:00:00 (procedure) [code = 315677866] Future Scheduled 1966 COVID-19 VACCINE (1) Toni lovelyjoshua [facility] Test 00:00:00 [code = COVID-19 VACCINE (1)] Future Scheduled 1960 65+ PNEUMOCOCCAL Supply [facility] Test 00:00:00 VACCINE (1 of 2 - PPSV23) [code = 65+ PNEUMOCOCCAL VACCINE (1 of 2 - PPSV23)] Encounters Start End Encounter Admission Attending Care Care Encounter Source Date/Time Date/Time Type Type Clinicians Facility Department ID 2020-10-03 Outpatient DIMAS, [facility] [id number] [place] 03:46:01 [facility] 2020-06-30 2020-06-30 Outpatient ERNA [facility] [id number] Supply 00:00:00 00:00:00 JANICE [address] Results This patient has no known results.
[2020-10-25 22:02] LABS: Absolute Lymphocytes (CBC) 2.4 K/uL (0.7-4.9); Basophils % 0.4 % (0-1.3); Hematocrit 44.2 % (39.6-49.0); MPV 9.3 fL (7.6-11.3); RBC Red Blood Cell Count 4.58 M/uL (4.33-5.43)
[2020-10-25] MEDS ORDERED: HYDRALAZINE HCL 20 MG/ML VIAL ONE (22:17)
[2020-10-25 22:24] LABS: Protime INR 0.9
[2020-10-25 22:31] LABS: Blood Morphology Comment NOT SEEN (NOT SEEN); Platelet Estimate ADEQ
[2020-10-25 22:42] LABS: ALT/SGPT 33 U/L (12-78); Alkaline Phosphatase 66 U/L (45-117); BUN Blood Urea Nitrogen 11 mg/dL (7-18); Bicarbonate 29 mmol/L (21-32); Bilirubin Direct < 0.1 mg/dL (0-0.2); Bilirubin Total 0.4 mg/dL (0.2-1.0); Glucose Level 279 mg/dL (74-106); Protein, Total 6.8 g/dL (6.4-8.2); Sodium Level 143 mmol/L (136-145); Troponin (Emerg Dept Use Only) < 0.02 ng/mL (0.0-0.045)
[2020-10-25 22:45] LABS: AST/SGOT 24 U/L (15-37); Potassium 3.8 mmol/L (3.5-5.1)
[2020-10-25 22:48] LABS: Urine Blood Trace-lysed (Negative); Urine Glucose 2+ (Negative); Urine Protein 3+ (Negative); Urine Specific Gravity 1.025 (1.005-1.030)
[2020-10-25] MEDS ORDERED: ACETAMINOPHEN 500 MG TAB ONE (22:50)
--- NOTE | 2020-10-25 23:19 | ER ---
Nurse's Notes [facility] Name: Marc Sanches Jr Age: 65 yrs Sex: Male : 1955 Arrival Date: 10/25/2020 Time: 21:12 Bed 20 Private MD: Diagnosis: Altered mental status, unspecified;Hypertensive urgency Presentation: 10/25 21:21 Acuity: DEYSI 2 iw 21:21 Chief complaint: Spouse and/or significant other states: noticed that he started to rr5 become confused around 530PM. no facial droop noted to him, he took a nap around 3PM. 21:21 Coronavirus screen: Client denies travel out of the [place] in the last 14 days. At this rr5 time, the client does not indicate any symptoms associated with coronavirus-19. Ebola Screen: Patient negative for fever greater than or equal to 101.5 degrees Fahrenheit, and additional compatible Ebola Virus Disease symptoms Patient denies exposure to infectious person. Patient denies travel to an Ebola-affected area in the 21 days before illness onset. Initial Sepsis Screen: Does the patient meet any 2 criteria? No. Patient's initial sepsis screen is negative. Does the patient have a suspected source of infection? No. Patient's initial sepsis screen is negative. Risk Assessment: Do you want to hurt yourself or someone else? Patient reports no desire to harm self or others. Onset of symptoms was October 25, 2020 at 15:00. 21:21 Method Of Arrival: Wheelchair rr5 Historical: - Allergies: 21:20 PENICILLINS; iw - Home Meds: 21:20 Crestor 40 mg oral tab 1 tab once daily [Active]; hydrochlorothiazide 12.5 mg Oral tab iw 1 tab once daily [Active]; Hyzaar 100-12.5 mg Oral tab 1 tab once daily [Active]; hydralazine 10 mg Oral tab 1 tab 2 times per day [Active]; Toujeo SoloStar 300 unit/mL (1.5 mL) subcutaneous inpn daily [Active]; metformin 1,000 mg Oral tab 1 tab 2 times per day [Active]; Neurontin 600 mg Oral tab 1 tab 3 times per day [Active]; Plavix 75 mg Oral tab 1 tab once daily [Active]; Tricor 145 mg Oral tab 1 tab once daily [Active]; pantoprazole 20 mg oral TbEC 1 tab once daily [Active]; - PMHx: 21:20 Diabetes - IDDM; High Cholesterol; Hypertension; iw - Immunization history:: Adult Immunizations unknown. - Social history:: Smoking status: unknown. Screenin:20 Abuse screen: Denies threats or abuse. Denies injuries from another. Nutritional rr5 screening: No deficits noted. Tuberculosis screening: No symptoms or risk factors identified. Fall Risk IV access (20 points). Total Moore Fall Scale indicates No Risk (0-24 pts). 21:20 VAN Screening: Arm Drift: Patient shows no arm weakness. Patient is VAN negative. rr5 Visual Disturbance: No visual disturbance noted. Aphasia: Expressive aphasia noted. Provider notified of +VAN scoring. Neglect: No neglect noted. 22:30 Patient has been NPO before screening. The patient is alert, able to follow commands. rr5 The patient does not exhibit slurred or garbled speech The patient is not exhibiting difficulty speaking. follows command The patient is able to swallow own secretions with no drooling or need for suction. Patient tolerated one teaspoon of water. No drooling, immediate coughing, gurgling, or clearing of the throat was noted. The patient tolerated 90mL of water. No drooling, immediate coughing, gurgling, or clearing of the throat was noted. The patient passed the bedside swallow screening. Oral medications may be given as ordered. Contact Physician for further diet orders. Assessment: 21:20 General: Appears in no apparent distress. comfortable, Behavior is calm, cooperative. rr5 21:20 Pain: Unable to use pain scale. Patient appears confused. Neuro: Level of Consciousness rr5 is awake, alert, obeys commands, Oriented to person, Entry Level Project Coordinator are equal bilaterally Moves all extremities. Full function Speech with expressive aphasia noted, Facial symmetry appears normal. Cardiovascular: Capillary refill < 3 seconds Patient's skin is warm and dry. Respiratory: Airway is patent Respiratory effort is even, unlabored, Respiratory pattern is regular, symmetrical. GI: Abdomen is round non-distended. : No signs and/or symptoms were reported regarding the genitourinary system. EENT: No signs and/or symptoms were reported regarding the EENT system. Derm: Skin is intact, is healthy with good turgor, Skin temperature is warm. Musculoskeletal: Capillary refill < 3 seconds. 22:00 Reassessment: Patient appears in no apparent distress at this time. No changes from rr5 previously documented assessment. awaiting for CT result. 22:30 Reassessment: Patient appears in no apparent distress at this time. awaiting for CT rr5 result. 23:30 Reassessment: Patient appears in no apparent distress at this time. Patient and/or rr5 family updated on plan of care and expected duration. Pain level reassessed. awaiting for room assignment. 10/26 00:40 Reassessment: Patient appears in no apparent distress at this time. awaiting for in rr5 patient orders. 01:00 Reassessment: Patient appears in no apparent distress at this time. antibiotic given rr5 for UTI. 01:30 Reassessment: Patient appears in no apparent distress at this time. resting eyes closed rr5 breathing spontaneously at room air. 02:15 Reassessment: Patient appears in no apparent distress at this time. for in patient rr5 awaiting for in patient orders. 03:30 Reassessment: Patient appears in no apparent distress at this time. transfer to room rr5 213, awake alert, GCS 14/15. IV intact. Vital Signs: 10/25 21:20 BP 188 / 86; Pulse 85; Resp 16; Temp 97.2; Pulse Ox 94% on R/A; iw 22:01 BP 208 / 98; Pulse 80; Resp 19; Pulse Ox 98% ; Weight 108.86 kg; Height 5 ft. 10 in. rr5 (177.80 cm); 22:38 BP 187 / 84; Pulse 75; Resp 22; Pulse Ox 98% ; rr5 23:30 BP 171 / 77; Pulse 87; Resp 19; Pulse Ox 97% ; rr5 10/26 00:30 BP 188 / 98; Pulse 85; Resp 16; Pulse Ox 98% ; rr5 01:00 BP 176 / 81; Pulse 89; Resp 16; Pulse Ox 99% ; rr5 02:00 BP 166 / 100; Pulse 80; Resp 16; Pulse Ox 97% ; rr5 03:00 BP 163 / 105; Pulse 75; Resp 16; Pulse Ox 100% ; rr5 10/25 22:01 Body Mass Index 34.44 (108.86 kg, 177.80 cm) rr5 NIH Stroke Scale Scores: 10/25 21:25 NIHSS Score: 2 rr5 ED Course: 21:12 Patient arrived in ED. iw 21:21 Triage completed. iw 21:23 David Delgado, RN is Primary Nurse. rr5 21:25 Patient has correct armband on for positive identification. Placed in gown. Bed in low rr5 position. Call light in reach. Side rails up X2. element winding machine tender on. Pulse ox on. NIBP on. 21:27 Jb Francois MD is Attending Physician. tw4 21:30 EKG done, by ED staff, reviewed by David Delgado RN. rr5 21:30 Arm band placed on right wrist. rr5 21:34 CT Stroke Brain w/o Contrast In Process Unspecified. EDMS 21:35 Inserted saline lock: 20 gauge in right antecubital area, using aseptic technique. rr5 Blood collected. 21:51 Stroke CXR 1 View In Process Unspecified. EDMS 22:41 Urine collected: clean catch specimen, clear. rr5 23:18 Susanne Loja MD is Hospitalizing Provider. tw4 10/26 01:15 IV discontinued, intact, bleeding controlled, No redness/swelling at site. Pressure rr5 dressing applied, infiltrated. 01:23 Inserted saline lock: 20 gauge in left forearm, using aseptic technique. rr5 01:24 No provider procedures requiring assistance completed. Patient admitted, IV remains in rr5 place. intact, No redness/swelling at site. Administered Medications: 10/25 22:01 Drug: hydrALAZINE 10 mg Route: IVP; Site: right antecubital; rr5 23:00 Follow up: Response: No adverse reaction; Blood pressure is lowered rr5 22:30 Drug: Tylenol 1000 mg Route: PO; rr5 23:30 Follow up: Response: No adverse reaction rr5 10/26 00:31 Drug: hydrALAZINE 10 mg Route: IVP; Site: right antecubital; rr5 01:30 Follow up: Response: No adverse reaction; Blood pressure is lowered rr5 00:58 Drug: Rocephin (cefTRIAXone) 1 grams Route: IV; Rate: calculated rate; Site: right rr5 antecubital; 01:30 Follow up: Response: No adverse reaction; IV Status: Completed infusion; IV Intake: rr5 250ml Intake: 01:30 IV: 250ml; Total: 250ml. rr5 Output: 10/25 22:41 Urine: 400ml (Voided); Total: 400ml. rr5 10/26 01:20 Urine: 500ml (Voided); Total: 900ml. rr5 03:30 Urine: 350ml (Voided); Total: 1250ml. rr5 Outcome: 10/25 23:19 Decision to Hospitalize by Provider. tw4 10/26 01:05 Admitted to Med/surg accompanied by tech, via stretcher, room 222, with chart, Report rr5 called to tyrone Condition: stable Instructed on the need for admit. 03:31 Patient left the ED. rr5 NIH Stroke Scale - NIH Stroke Score Date: 10/25/2020 Time: 21:25 Total Score = 2 1a. Level of Consciousness (LOC) - 0(Alert) 1b. Level of Consciousness (LOC) (Year \T\ Age) - 2(Neither) 1c. LOC Commands (Open \T\ Closes Eyes/Medical Imaging Director) - 0(Both) 2. Best Gaze (Lateral Gaze Paresis) - 0(Normal) 3. Visual Field Loss - 0(No visual loss) 4. Facial Palsy - 0(Normal) 5a. Left Arm: Motor (10-second hold) - 0(No drift) 5b. Right Arm: Motor (10-second hold) - 0(No drift) 6a. Left Leg: Motor (5-second hold - always test supine) - 0(No drift) 6b. Right Leg: Motor (5-second hold - always test supine) - 0(No drift) 7. Limb Ataxia (finger/nose \T\ heel/haro - test with eyes open) - 0(Absent) 8. Sensory Loss (pinprick arms/legs/face) - 0(Normal) 9. Best Language: Aphasia (description/naming/reading) - 0(No aphasia) 10. Dysarthria (speech clarity - read or repeat words) - 0(Normal) 11. Extinction and Inattention (visual/tactile/auditory/spatial/personal) - 0(No abnormality) Initials: rr5 Signatures: Dispatcher [employer] Mariaa Sales RN RN iw Wadley, Terrence, MD MD tw4 David Delgado RN RN rr5
--- NOTE | 2020-10-25 23:20 | EDPHYS ---
Physician Documentation [facility] Name: Marc Sanches Jr Age: 65 yrs Sex: Male : 1955 Arrival Date: 10/25/2020 Time: 21:12 Bed 20 Private MD: ED Physician Jb Francois HPI: 10/26 06:22 This 65 yrs old Male presents to ER via Wheelchair with complaints of Altered tw4 Mental Status. 06:22 The patient presents with decreased mental status, decreased responsiveness. Onset: The tw4 symptoms/episode began/occurred today. Possible causes: CVA or TIA. Associated signs and symptoms: The patient has no apparent associated signs or symptoms. Current symptoms: In the emergency department the patient's symptoms are unchanged from the initial presentation. Patient's baseline: Neuro: alert and fully oriented, Motor: no deficits, Ambulation: walks without assistance. SPOUSE STATES THAT PATIENT BECAME CONFUSED TODAY APPROX 1530. Historical: - Allergies: 10/25 21:20 PENICILLINS; iw - Home Meds: 21:20 Crestor 40 mg oral tab 1 tab once daily [Active]; hydrochlorothiazide 12.5 mg Oral tab iw 1 tab once daily [Active]; Hyzaar 100-12.5 mg Oral tab 1 tab once daily [Active]; hydralazine 10 mg Oral tab 1 tab 2 times per day [Active]; Toujeo SoloStar 300 unit/mL (1.5 mL) subcutaneous inpn daily [Active]; metformin 1,000 mg Oral tab 1 tab 2 times per day [Active]; Neurontin 600 mg Oral tab 1 tab 3 times per day [Active]; Plavix 75 mg Oral tab 1 tab once daily [Active]; Tricor 145 mg Oral tab 1 tab once daily [Active]; pantoprazole 20 mg oral TbEC 1 tab once daily [Active]; - PMHx: 21:20 Diabetes - IDDM; High Cholesterol; Hypertension; iw - Immunization history:: Adult Immunizations unknown. - Social history:: Smoking status: unknown. ROS: 10/26 06:22 Constitutional: Negative for fever, chills, and weight loss, Eyes: Negative for injury, tw4 pain, redness, and discharge, Cardiovascular: Negative for chest pain, palpitations, and edema, Respiratory: Negative for shortness of breath, cough, wheezing, and pleuritic chest pain, Abdomen/GI: Negative for abdominal pain, nausea, vomiting, diarrhea, and constipation, Back: Negative for injury and pain, MS/Extremity: Negative for injury and deformity, Skin: Negative for injury, rash, and discoloration. Neuro: Positive for altered mental status, Negative for dizziness, gait disturbance, numbness, seizure activity, speech changes, syncope, tinnitus, tremor, visual changes, weakness. Exam: 06:24 Constitutional: This is a well developed, well nourished patient who is awake, alert, tw4 and in no acute distress. Head/Face: Normocephalic, atraumatic. Chest/axilla: Normal chest wall appearance and motion. Nontender with no deformity. No lesions are appreciated. Cardiovascular: Regular rate and rhythm with a normal S1 and S2. No gallops, murmurs, or rubs. Normal PMI, no JVD. No pulse deficits. Respiratory: Lungs have equal breath sounds bilaterally, clear to auscultation and percussion. No rales, rhonchi or wheezes noted. No increased work of breathing, no retractions or nasal flaring. Abdomen/GI: Soft, non-tender, with normal bowel sounds. No distension or tympany. No guarding or rebound. No evidence of tenderness throughout. Back: No spinal tenderness. No costovertebral tenderness. Full range of motion. Skin: Warm, dry with normal turgor. Normal color with no rashes, no lesions, and no evidence of cellulitis. MS/ Extremity: Pulses equal, no cyanosis. Neurovascular intact. Full, normal range of motion. Neuro: Awake and alert, GCS 15, oriented to person, place, time, and situation. Cranial nerves II-XII grossly intact. Motor strength 5/5 in all extremities. Sensory grossly intact. Cerebellar exam normal. Normal gait. Vital Signs: 10/25 21:20 BP 188 / 86; Pulse 85; Resp 16; Temp 97.2; Pulse Ox 94% on R/A; iw 22:01 BP 208 / 98; Pulse 80; Resp 19; Pulse Ox 98% ; Weight 108.86 kg; Height 5 ft. 10 in. rr5 (177.80 cm); 22:38 BP 187 / 84; Pulse 75; Resp 22; Pulse Ox 98% ; rr5 23:30 BP 171 / 77; Pulse 87; Resp 19; Pulse Ox 97% ; rr5 10/26 00:30 BP 188 / 98; Pulse 85; Resp 16; Pulse Ox 98% ; rr5 01:00 BP 176 / 81; Pulse 89; Resp 16; Pulse Ox 99% ; rr5 02:00 BP 166 / 100; Pulse 80; Resp 16; Pulse Ox 97% ; rr5 03:00 BP 163 / 105; Pulse 75; Resp 16; Pulse Ox 100% ; rr5 10/25 22:01 Body Mass Index 34.44 (108.86 kg, 177.80 cm) rr5 NIH Stroke Scale Scores: 10/25 21:25 NIHSS Score: 2 rr5 MDM: 23:19 Patient medically screened. tw10/26 06:25 Differential Diagnosis: CVA, electrolyte abnormality, meningitis, overdose, pneumonia, tw4 volume depletion. Data reviewed: vital signs, nurses notes. Data interpreted: Pulse oximetry: Interpretation:. Counseling: I had a detailed discussion with the patient and/or guardian regarding: the historical points, exam findings, and any diagnostic results supporting the discharge/admit diagnosis. Physician consultation: Susanne Loja MD regarding admission, to the telemetry unit. patient's condition, and will see patient in ED. 10/25 21:28 Order name: Troponin (emerg Dept Use Only) tw4 10/25 21:28 Order name: Hepatic Function 10/25 21:28 Order name: Basic Metabolic Panel tw4 10/25 21:28 Order name: CBC with Diff; Complete Time: 23:02 tw4 10/25 23:02 Interpretation: Normal except: MCV 96.4; EOSINOPHIL % 5.4. 10/25 21:28 Order name: Protime (+inr); Complete Time: 23:02 tw4 10/25 23:03 Interpretation: Within normal limits: PT 10.3. 10/25 21: Order name: Ptt, Activated; Complete Time: 23:02 tw4 10/25 23:03 Interpretation: Within normal limits: PTT 25.0. 10/25 21:29 Order name: Troponin (Emerg Dept Use Only); Complete Time: 23:02 EDMS 10/25 21:29 Order name: Liver (Hepatic) Function; Complete Time: 23:02 EDMS 10/25 23:02 Interpretation: Normal except: ALB 3.0; GLOB 3.8. 10/25 21:29 Order name: Basic Metabolic Panel; Complete Time: 23:02 [facility] 10/25 23:03 Interpretation: Normal except: CL 108; GLUC 279; GFR 77. 10/25 21:31 Order name: Glucose, Ancillary Testing; Complete Time: 23:02 [facility] 10/25 23:03 Interpretation: Normal except: GLUC,ANCIL 257. 10/25 22:04 Order name: Manual Differential; Complete Time: 23:02 [facility] 10/25 23:03 Interpretation: Normal except: EOS 4. 10/25 22:38 Order name: Urine Microscopic Only [facility] 10/25 22:38 Order name: Urine Microscopic Only; Complete Time: 01:33 [facility] 10/25 21:28 Order name: Call for Old Records 10/25 21:28 Order name: Call for Old EKG 10/25 21:28 Order name: CT Stroke Brain w/o Contrast 10/25 21:28 Order name: Stroke CXR 1 View 10/25 21:28 Order name: EKG; Complete Time: 21:29 10/25 22:47 Order name: Urine Dipstick-Ancillary; Complete Time: 23:02 [facility] 10/25 23:29 Order name: SARS-COV-2 RT PCR; Complete Time: 01:33 [facility] 10/25 23:57 Order name: Urine Culture [facility] 10/26 03:09 Order name: CKMB Creatine Kinase MB [facility] 10/26 03:09 Order name: CKMB Creatine Kinase MB [facility] 10/26 03:09 Order name: Creatine Phosphokinase [facility] 10/26 03:09 Order name: Creatine Phosphokinase [facility] 10/25 21:28 Order name: Accucheck; Complete Time: 21:50 10/25 21:28 Order name: Cardiac monitoring; Complete Time: 21:50 10/25 21:28 Order name: EKG - Nurse/Tech; Complete Time: 21:50 10/25 21:28 Order name: IV Saline Lock; Complete Time: 21:50 10/25 21:28 Order name: Labs collected and sent; Complete Time: 21:50 10/25 21:28 Order name: NPO; Complete Time: 21:50 tw4 10/25 21:28 Order name: O2 Per Protocol; Complete Time: 21:50 tw4 10/25 21:28 Order name: O2 Sat Monitoring; Complete Time: 21:50 tw4 10/25 21:28 Order name: Stroke Swallow Screen; Complete Time: 22:50 tw4 10/25 22:41 Order name: Urine Dipstick-Ancillary (obtain specimen); Complete Time: 22:50 rr5 10/26 03:09 Order name: NPO EDMS 10/26 03:09 Order name: NPO EDMS 10/26 03:09 Order name: NPO EDMS Administered Medications: 10/25 22:01 Drug: hydrALAZINE 10 mg Route: IVP; Site: right antecubital; rr5 23:00 Follow up: Response: No adverse reaction; Blood pressure is lowered rr5 22:30 Drug: Tylenol 1000 mg Route: PO; rr5 23:30 Follow up: Response: No adverse reaction rr5 10/26 00:31 Drug: hydrALAZINE 10 mg Route: IVP; Site: right antecubital; rr5 01:30 Follow up: Response: No adverse reaction; Blood pressure is lowered rr5 00:58 Drug: Rocephin (cefTRIAXone) 1 grams Route: IV; Rate: calculated rate; Site: right rr5 antecubital; 01:30 Follow up: Response: No adverse reaction; IV Status: Completed infusion; IV Intake: rr5 250ml Disposition: 10/25/20 23:19 Hospitalization ordered by Susanne Loja for Inpatient Admission. Preliminary diagnosis are Altered mental status, unspecified, Hypertensive urgency. - Bed requested for Telemetry/MedSurg (Inpatient). - Status is Inpatient Admission. rr5 - Condition is Stable. - Problem is new. - Symptoms are unchanged. NIH Stroke Scale - NIH Stroke Score Date: 10/25/2020 Time: 21:25 Total Score = 2 1a. Level of Consciousness (LOC) - 0(Alert) 1b. Level of Consciousness (LOC) (Year \T\ Age) - 2(Neither) 1c. LOC Commands (Open \T\ Closes Eyes/[employer]) - 0(Both) 2. Best Gaze (Lateral Gaze Paresis) - 0(Normal) 3. Visual Field Loss - 0(No visual loss) 4. Facial Palsy - 0(Normal) 5a. Left Arm: Motor (10-second hold) - 0(No drift) 5b. Right Arm: Motor (10-second hold) - 0(No drift) 6a. Left Leg: Motor (5-second hold - always test supine) - 0(No drift) 6b. Right Leg: Motor (5-second hold - always test supine) - 0(No drift) 7. Limb Ataxia (finger/nose \T\ heel/haro - test with eyes open) - 0(Absent) 8. Sensory Loss (pinprick arms/legs/face) - 0(Normal) 9. Best Language: Aphasia (description/naming/reading) - 0(No aphasia) 10. Dysarthria (speech clarity - read or repeat words) - 0(Normal) 11. Extinction and Inattention (visual/tactile/auditory/spatial/personal) - 0(No abnormality) Initials: rr5 Signatures: Dispatcher [employer] [facility] Mariaa Brian RN RN iw Jb Francois MD MD tw4 David Delgado RN RN rr5 Corrections: (The following items were deleted from the chart) 10/25 22:37 21:47 CORONAVIRUS+.KIRSTINZ ordered. [facility] 10/26 00:13 10/25 23:19 Hospitalization Ordered by Susanne Loja MD for Inpatient iw Admission. Preliminary diagnosis is Altered mental status, unspecified; Hypertensive urgency. Bed requested for Telemetry/MedSurg (Inpatient). Status is Inpatient Admission. Condition is Stable. Problem is new. Symptoms are unchanged. [facility] 10/26 03:31 00:13 10/25/2020 23:19 Hospitalization Ordered by Susanne Loja MD for rr5 Inpatient Admission. Preliminary diagnosis is Altered mental status, unspecified; Hypertensive urgency. Bed requested for Telemetry/MedSurg (Inpatient). Status is Inpatient Admission. Condition is Stable. Problem is new. Symptoms are unchanged. iw
[2020-10-25 23:56] LABS: Urine Amorphous Sediment 1+ /HPF (NONE SEEN); Urine Bacteria 20-50 /HPF (NONE SEEN)
[2020-10-26] MEDS ORDERED: HYDRALAZINE HCL 20 MG/ML VIAL ONE (00:42)
[2020-10-26] MEDS ORDERED: CEFTRIAXONE/SWI 1gm 1 GM/10 ML SYR ONE (01:12)
[2020-10-26] MEDS ORDERED: NA CHLORIDE 0.9% 250 ML ONE (01:15)
[2020-10-26] MEDS ORDERED: NA CHLORIDE 0.9% 1,000 ML IV SCH (04:00)
[2020-10-26] MEDS ORDERED: HYDRALAZINE HCL 20 MG/ML VIAL IV ONE (05:41)
[2020-10-26] MEDS ORDERED: IBUPROFEN 600 MG TAB PO ONE (05:42)
[2020-10-26 07:13] VITALS: BMI 34.4
[2020-10-26] MEDS: NA CHLORIDE 0.9% 1,000 ML IV SCH ×2 (09:30→11:00)
[2020-10-26] MEDS ORDERED: D50W 25 GM/50 ML SYRINGE IV PRN (10:41)
[2020-10-26] MEDS ORDERED: GLUCAGON 1 MG/VIAL IM PRN (10:41)
[2020-10-26] MEDS: AMLODIPINE 10 MG TAB PO SCH (10:58)
[2020-10-26] MEDS: LOSARTAN POTASSIUM 50 MG TABLET PO SCH (10:59)
[2020-10-26] MEDS: ACETAMINOPHEN 500 MG TAB PO PRN ×3 (10:59→21:09)
--- NOTE | 2020-10-26 11:14 | RAD REPORT ---
EXAM DESCRIPTION: MRI - Brain Wo Cont - 10/26/2020 11:01 am CLINICAL HISTORY: Alteration of consciousness/confusion COMPARISON: Head CT October 25, 2020 TECHNIQUE: Axial, sagittal, and coronal magnetic resonance images of the brain were obtained. FINDINGS: The examination is suboptimal secondary to patient motion artifact. Moderate signal within periventricular, deep and subcortical white matter probably ischemic changes secondary to small vess el disease The evaluation for acute infarction is limited secondary to the patient motion artifact. Diffusion-we ighted/ADC mapping does not reveal gross evidence of acute infarction The ventricles are normal caliber. An extra-axial fluid collection is not noted. Fluid within the sinuses/mastoids is not seen IMPRESSION: Limited examination secondary patient motion artifact. No gross acute intracranial abnormality seen
[2020-10-26] MEDS: ASPIRIN EC 81 MG TAB PO SCH (11:27)
--- NOTE | 2020-10-26 11:43 | RAD REPORT ---
EXAM DESCRIPTION: Ariane Single View10/25/2020 9:51 pm CLINICAL HISTORY: CVA COMPARISON: none FINDINGS: Mid right lung is hazy. Remainder lungs appear clear. Heart is borderline enlarged IMPRESSION: In right lung is hazy. This may represent pneumonia or overlying soft tissue. PA and lat eral chest series recommended
[2020-10-26] MEDS: INSULIN -REGULAR HUMAN 50 UNIT/0.5 ML ML SQ SCH ×3 (12:23→21:13)
--- NOTE | 2020-10-26 13:20 | RAD REPORT ---
EXAM DESCRIPTION: CT - Ct Stroke Brain Wo Cont - 10/26/2020 4:55 am CLINICAL HISTORY: 65 years, Male, APHASIA COMPARISON: None. FINDINGS: Multiple transaxial tomograms of the brain were obtained from the base of the skull to the vertex without contrast. 2-D multiplanar reformats and the coronal and sagittal plane were performed and reviewed. This exam was performed according to our departmental dose-optimization protocol, which includes auto mated exposure control, adjustment of the mA and/or kV according to patient size and/or use of iterat antwon reconstruction technique. Brain parenchyma demonstrate mild prominence of the sulci and gyri are corresponding to mild cerebral and cerebellar atrophy. There is moderate periventricular white matter changes of microvascular isch emia. There is no midline shift and/or mass effect. There is no evidence for acute intracranial hemor rhage. Lateral ventricles and cisterns displace normal appearance. No intra or extra axial fluid collections were seen. The calvarium is intact with no evidence for fracture. The visualized portions of the paranasal sinuses and orbits demonstrate to be clear. IMPRESSION: MILD BRAIN ATROPHY WITH MODERATE PERIVENTRICULAR MATTER CHANGES OF MICROVASCULAR ISCHEMI A. NO ACUTE INTRACRANIAL HEMORRHAGE. Electronically signed by: Ashutosh Carrasco MD 10/25/2020 9:42 PM CDT Due to temporary technical issues with the PACS/Fluency reporting system, reports are being signed by the in house radiologists without review as a courtesy to insure prompt reporting. The interpreting radiologist is fully responsible for the content of the report.
[2020-10-26] MEDS ORDERED: HYDRALAZINE HCL 25 MG TABLET PO SCH (14:00)
[2020-10-26] MEDS ORDERED: VALPROATE SODIUM INJ 1,000 MG in NA CHLORIDE 0.9% 100 ML IV ONE (15:07)
[2020-10-26] MEDS ORDERED: LORazepam 2 MG/ML VIAL IV PRN (15:08)
[2020-10-26] MEDS: HYDRALAZINE HCL 25 MG TABLET PO SCH ×2 (16:09→21:09)
--- NOTE | 2020-10-26 16:48 | RAD REPORT ---
EXAM DESCRIPTION: RAD - Chest Pa And Lat (2 Views) - 10/26/2020 4:36 pm CLINICAL HISTORY: pneumonia COMPARISON: Portable chest October 25 TECHNIQUE: Frontal and lateral views of the chest were obtained. FINDINGS: The frontal projection is incorrectly labeled as to right versus left side. The lateral vi ew has respiratory motion degradation. The lungs are underinflated. Cardiomegaly and vascular engorgement are present. Low lung volume, port able technique and body habitus all contribute to accentuation of these findings. No new consolidatio n or mass of the lung parenchyma. Trachea is midline. No pleural effusion or pneumothorax seen. No acute bony finding noted. No aortic abnormality. IMPRESSION: Limited portable study shows no new mass or infiltrate of the lung parenchyma. Cardiomegaly and vascular engorgement are present believed to be the affects of body habitus and low lung volume. A mild failure or volume overload component cannot be excluded.
[2020-10-26] MEDS: PANTOPRAZOLE 40MG TABLET PO SCH (17:33)
--- NOTE | 2020-10-26 18:39 | HP ---
Date of Admission: 10/26/2020 History Of Present Illness: A 65-year-old male with multiple medical problems including diabetes and hypertension, who was doing well until yesterday when he had an afternoon nap. He woke up and as pe r his , he was confused, he did not know his whereabouts or where is his car. He was brought to the emergency room and he was admitted for acute altered mental status. The patient's history from [facility] and from his . Review of Systems: On his review of systems, he had no other complaints. No chest pain. No increased shortness of arash th. No gastrointestinal symptoms or other symptoms by review of systems Past Medical History: Includes: 1.Type 2 diabetes. 2.Hypertension. 3.Hyperlipidemia. 4.Peripheral neuropathy. 5.Coronary artery disease. No angina. 6.Gastroesophageal reflux disease. Social History: No smoking, alcohol, or drug abuse history. Family History: Noncontributing. Medications: Include Crestor 40 mg p.o. daily. Hydrochlorothiazide 25/12.5 mg p.o. daily. Cozaar, which is losartan 100 mg p.o. daily, hydralazine 25 mg p.o. t.i.d. mL subcutaneous daily, metformin 1000 mg p.o. b.i.d., Neurontin 600 mg p.o. t.i.d., Plavix 75 mg p.o. daily, Tricor 145 mg p .o. daily, Pantoprazole 20 mg p.o. daily. Allergies: PENICILLIN. Physical Examination: General: The patient is alert, good eye contact. He tries to answer questions, but he seems to have difficulty concentrating to come up with the right answer. Vital Signs: Blood pressure 186/81, pulse 82, temperature 99.2, went up to 100 few hours ago. Heart: Regular rate and rhythm. Chest: Clear to auscultation. Abdomen: Soft, nontender. Bowel sounds are normoactive. Extremities: No edema. No cyanosis. Peripheral pulses are felt. Neurological: The patient is alert. He is not oriented. He did not know my name or that he is in [facility] or he could not focus or concentrate enough to be able to come with the right answer, but he moves all his extremities and follows appropriate. Diagnostic Data: The patient's brain CT, no acute pathology. Chest x-ray, right lung haziness maybe pneumonia or overlying soft tissue. A two-view x-ray is recommended. Brain MRI, no acute pathology . CBC; white cell count 10.2, hemoglobin 15.4, hematocrit 44.2, platelets 224, 5.4. Chem istry; BUN 11, creatinine 0.97, GFR 77, blood sugar 257 and 215. Prolactin less than 0.05. Urinalysis showed trace lysed blood, 3+ proteins. Assessment And Plan: 1.The patient with acute altered mental status with elevated temperature up to 100 Fahrenheit. Susp ect pneumonia as mentioned by x-ray from the haziness at its beginning. The patient is being admitte d, put him on IV Rocephin. Blood cultures were drawn. 2.Type 2 diabetes. We will put the patient on insulin sliding scale. We will hold on the metformin for now, on other medications to see how much his p.o. intake also. 3.Hypertension, seems to be uncontrolled high. We will resume his home medications and we will act accordingly and have increased dose of his hydralazine to 50 t.i.d. 4.The rest of his home medications will be given. Look orders for details. MFS/MODL Voice ID: [id number]
[2020-10-26] MEDS ORDERED: HOME MED 1 EA UNK (Metformin Hcl [Metformin Hcl] 1,000 MG Tablet) PO SCH (21:00)
[2020-10-26] MEDS ORDERED: ROSUVASTATIN 10 MG TAB PO SCH ×2 (21:00)
[2020-10-26] MEDS ORDERED: HOME MED 1 EA UNK (Pantoprazole Sodium [Protonix] 20 MG Tablet.Dr) PO SCH (21:00)
[2020-10-26] MEDS: DIVALPROEX DR 500MG TAB PO SCH (21:09)
[2020-10-26] MEDS: CEFTRIAXONE/SWI 1gm 1 GM/10 ML SYR IV SCH (21:10)
[2020-10-27] MEDS: NA CHLORIDE 0.9% 1,000 ML IV SCH ×2 (01:37→22:07)
[2020-10-27] MEDS ORDERED: AMLODIPINE 10 MG TAB PO SCH (06:00)
[2020-10-27 06:08] LABS: Absolute Lymphocytes (CBC) 1.1 K/uL (0.7-4.9); Basophils % 0.7 % (0-1.3); Hematocrit 45.5 % (39.6-49.0); Lymphocytes % 7.9 % (15.3-44.8); MPV 9.9 fL (7.6-11.3); RBC Red Blood Cell Count 4.75 M/uL (4.33-5.43)
[2020-10-27 06:19] LABS: BUN Blood Urea Nitrogen 10 mg/dL (7-18); Bicarbonate 25 mmol/L (21-32); Creatine Phosphokinase 299 U/L (39-308); Glucose Level 199 mg/dL (74-106); HDL Cholesterol 41 mg/dL (40-60); LDL Cholesterol, Calculated 176 (<130); Potassium 3.1 mmol/L (3.5-5.1); Sodium Level 142 mmol/L (136-145); Troponin I 0.02 ng/mL (0.0-0.045)
[2020-10-27] MEDS: INSULIN -REGULAR HUMAN 50 UNIT/0.5 ML ML SQ SCH ×4 (07:30→20:54)
[2020-10-27] MEDS ORDERED: LORazepam 2 MG/ML VIAL IV ONE (08:00)
[2020-10-27] MEDS ORDERED: FENOFIBRATE 145 MG TAB PO SCH (09:00)
[2020-10-27] MEDS ORDERED: CLOPIDOGREL 75 MG TABLET PO SCH (09:00)
[2020-10-27] MEDS: CLOPIDOGREL 75 MG TABLET PO SCH (09:00)
[2020-10-27] MEDS ORDERED: hydroCHLOROthiazide 12.5 MG CAP PO SCH (09:00)
[2020-10-27] MEDS: HYDRALAZINE HCL 25 MG TABLET PO SCH ×3 (09:00→20:53)
[2020-10-27] MEDS ORDERED: HOME MED 1 EA UNK (Losartan Potassium [Losartan Potassium] 100 MG Tablet) PO SCH (09:00)
[2020-10-27] MEDS: FENOFIBRATE 160 MG TAB PO SCH ×2 (09:00→11:34)
[2020-10-27] MEDS: ASPIRIN EC 81 MG TAB PO SCH (09:00)
--- NOTE | 2020-10-27 09:59 | RAD REPORT ---
EXAM DESCRIPTION: MRI - Brain W/Wo Cont - 10/27/2020 9:45 am CLINICAL HISTORY: Confusion/alteration of consciousness COMPARISON: October 26, 2020 MRI TECHNIQUE: Axial, sagittal, and coronal magnetic images of the brain were obtained. 20 cc MultiHance administered intravenously FINDINGS: Images are degraded by patient motion artifact. Moderate signal within periventricular, deep and subcortical white matter probably ischemic changes s econdary to small vessel disease The ventricles are normal in caliber. Diffusion-weighted/ ADC mapping sequences do not demonstrate evidence of an acute infarction. No abnormal enhancement within the brain is seen. An extra-axial fluid collection is not noted. Fluid within the sinuses/mastoids is not seen IMPRESSION: No acute intracranial abnormality displayed
[2020-10-27] MEDS: PANTOPRAZOLE 40MG TABLET PO SCH ×2 (11:33→17:18)
[2020-10-27] MEDS: LOSARTAN POTASSIUM 50 MG TABLET PO SCH (11:34)
[2020-10-27] MEDS: AMLODIPINE 10 MG TAB PO SCH (11:34)
[2020-10-27] MEDS: DIVALPROEX DR 500MG TAB PO SCH ×2 (11:34→20:52)
--- NOTE | 2020-10-27 12:25 | PN ---
Subjective: The patient is still not oriented. He did not know me. He has good eye contact. He an swers questions properly, but as mentioned, when I asked him about his , he seemed on his face th at he knows her, but he could not say that was his or her name, but he moves all his extremities . Objective: Vital Signs: The patient's blood pressure 195/82, pulse 93, temperature 97.8. Heart: Regular rate and rhythm. Chest: Clear to auscultation. Abdomen: Soft, benign Neurologic: As mentioned above in HPI. Extremities: No edema. No cyanosis. Peripheral pulses are felt. Diagnostic Data: Chest x-ray done on yesterday showed no significant change from previous, has sligh t increase in cardiopulmonary markings noted. CBC showed increase in white cell count of 14.5 with i ncrease in neutrophil percent to 85.1%. Chemistry: Sodium . The rest is noted. Blood dean gar fingersticks in the 200s. Patient's cholesterol panel LDL at 176. Prolactin was less than 0.05. Assessment And Plan: 1.Altered mental status. The patient is not oriented. Neurology has seen the patient, they ordered EEG. Seizure variant is considered as a cause of his mental status change. He was put on Depakote, pending Neurology for consultation and recommendation. 2.Possible pneumonia with the patient having had fever also yesterday. Blood cultures pending. We will continue ceftriaxone. 3.Hypokalemia. We will put the patient on electrolyte protocol. 4.The patient is on IV fluid normal saline. We will change that to half-normal saline. 5.Type 2 diabetes. The patient will be continued on sliding scale. Look orders for details. MFS/MODL Voice ID: [id number] Report ID: [id number]
[2020-10-27] MEDS: ACETAMINOPHEN 500 MG TAB PO PRN (14:36)
[2020-10-27] MEDS ORDERED: POTASSIUM CL SA 10 MEQ TAB PO ONE (16:50)
[2020-10-27] MEDS: ROSUVASTATIN 10 MG TAB PO SCH (20:52)
[2020-10-27] MEDS: CEFTRIAXONE/SWI 1gm 1 GM/10 ML SYR IV SCH (20:54)
--- NOTE | 2020-10-27 21:07 | CON ---
Reason For Consultation: Consultation called because of altered mental status. History Of Present Illness: Mr. Sanches is a 65-year-old right-handed patient, who was ad mitted to [facility] on 10/26/2020 with worsening confusion, disorientation, and inability t o comprehend and express himself. His is at the bedside and provided information. She said thi s situation began on the around 5:30 in the afternoon where he started to look blankly at her an d could not follow instructions or express himself. His face, arm, and legs were symmetric. There d id not appear to be any focal weakness or numbness in those areas. He would look at her as though he did not recognize her and could not recognize very familiar people, could not get any words out, and did not make any sense when speaking. He came to [facility] and around 4:55 in the morning on 10/26, head CT scan was done. The study showed mild brain atrophy with moderate periventricular white matter changes, no acute findings. He subsequently had a brain MRI without contrast that confi rmed findings on CT scan, but no acute intracranial abnormalities was on later on and then today on the 27 of October, had a repeat brain MRI without and with contrast, which again revealed no acute ischemic or hemorrhagic changes. He does have an EEG pending. Blood work revealed an initially norm al white blood cell count of 10.2, then on the increased to 14.5 with 85.1% neutrophils. At his admission, he did have a urinary analysis, which showed 20-50 bacteria, 5-10 red blood cells, and sub sequently 3+ protein, but negative nitrite, negative esterase, and there is trace of hemolyzed blood in the urine. He did have a negative COVID-19 test and he has pending lumbar puncture studies. At t he time I evaluated the patient, he was lying in his bed, he appeared confused, he did smile, but did not follow any instructions to do simple commands such as showing thumbs up, showed a right hand, bl ink, or answer any questions in any meaningful way. He was, however, alert and track and follow with his eyes and move the arms and legs symmetrically. Past Medical History: Hypertension, diabetes mellitus, dyslipidemia. Allergies: PENICILLIN. Medications: At home, Crestor 40 mg daily, hydrochlorothiazide 12.5 mg daily, Hyzaar 100/12.5 mg shamir ly, hydralazine 10 mg daily, Toujeo 1.5 mL subcutaneously daily, metformin 1000 mg daily, Neurontin 6 00 mg 3 times daily, Plavix 75 mg daily, Tricor 145 mg daily, pantoprazole 20 mg daily. Family History: Noncontributory. Social History: No recent alcohol, tobacco, or IV drug use. Review of Systems: Not possible from the patient as he is confused. Physical Examination: Vital Signs: Blood pressure 124/74, pulse 82, respiratory rate 16, temperature 98.1, oxygen saturati on 95%. Weight 240 pounds, height 5 feet 10 inches, BMI 34.4. General: Mr. Sanches is resting in bed. He is in no apparent distress. HEENT: He is normocephalic, atraumatic. Sclerae anicteric. Oropharynx is moist and pink. Neck: Supple. Chest: Clear. Heart: Regular. Extremities: No edema, cyanosis, or clubbing. Neurological: He is alert. He will look towards you when calling his name. He does not follow even simple commands as indicated previously to show thumbs up, move or lift his arm or leg, open and miguel se his fist, open and close his eyes. He does not have any facial asymmetry and no obvious focal def icits in his arms and legs in terms of strength, coordination, or sensory responses. He was ambulate d, actually got up, went to the restroom and did not lose his balance. Assessment: Mr. Sanches is a 65-year-old patient with unclear reason for encephalopathy. So far, h is brain MRI shows no evidence of acute ischemic or hemorrhagic stroke. He does have an EEG pending. Also lumbar puncture studies are pending. He was given Rocephin 1 g for possible urinary tract inf ection. Does have an elevated white blood cell count. He was also put on Depakote for the possibili ty of seizures and also for mood control and his comorbid conditions, diabetes, hypertension, and dys lipidemia were treated by continuing his current medications. Plan: 1.The patient's pending workup will be followed as indicated. 2.Continue the current regimen of medications including antibiotics and Depakote, and the patient alfredo y have to be put in a Memory Care Unit depending on outcome of his encephalopathy at least in the nex t several days. He will be followed closely while in the hospital. AYAH/NURIA Voice ID: [id number] Report ID: [id number]
[2020-10-28] MEDS: ACETAMINOPHEN 500 MG TAB PO PRN ×2 (02:32→21:00)
[2020-10-28 04:25] LABS: Absolute Lymphocytes (CBC) 1.1 K/uL (0.7-4.9); Basophils % 0.8 % (0-1.3); Hematocrit 46.2 % (39.6-49.0); Lymphocytes % 9.8 % (15.3-44.8); MPV 9.7 fL (7.6-11.3); RBC Red Blood Cell Count 4.77 M/uL (4.33-5.43)
[2020-10-28 04:45] LABS: BUN Blood Urea Nitrogen 14 mg/dL (7-18); Bicarbonate 25 mmol/L (21-32); Glucose Level 184 mg/dL (74-106); Potassium 3.2 mmol/L (3.5-5.1); Sodium Level 142 mmol/L (136-145)
[2020-10-28] MEDS: INSULIN -REGULAR HUMAN 50 UNIT/0.5 ML ML SQ SCH ×4 (07:30→20:43)
[2020-10-28] MEDS: PANTOPRAZOLE 40MG TABLET PO SCH ×2 (07:30→17:29)
[2020-10-28] MEDS: ASPIRIN EC 81 MG TAB PO SCH (09:00)
[2020-10-28] MEDS ORDERED: POTASSIUM CL SA 10 MEQ TAB PO ONE (09:00)
[2020-10-28] MEDS: CLOPIDOGREL 75 MG TABLET PO SCH (09:00)
[2020-10-28] MEDS: FENOFIBRATE 160 MG TAB PO SCH (09:00)
[2020-10-28] MEDS: DIVALPROEX DR 500MG TAB PO SCH ×2 (09:00→20:42)
[2020-10-28] MEDS: FUROSEMIDE 20 MG TABLET PO SCH (09:00)
[2020-10-28] MEDS ORDERED: LORazepam 2 MG/ML VIAL IV ONE (09:03)
[2020-10-28] MEDS: HYDRALAZINE HCL 25 MG TABLET PO SCH ×3 (09:14→20:43)
[2020-10-28] MEDS: AMLODIPINE 10 MG TAB PO SCH (09:14)
[2020-10-28] MEDS: LOSARTAN POTASSIUM 50 MG TABLET PO SCH (09:14)
[2020-10-28] MEDS ORDERED: LORazepam 2 MG/ML VIAL ONE (09:28)
--- NOTE | 2020-10-28 11:07 | RAD REPORT ---
EXAM DESCRIPTION: RAD - Lumbar Puncture For Dx - 10/28/2020 10:54 am CLINICAL HISTORY: change of LOC Headache, drowsiness COMPARISON: No comparisons TECHNIQUE: The procedure, risks and alternatives to the procedure were discussed with the patient in detail. After answering all questions, both oral and written consent were obtained. Time-out procedu re was performed. The patient was placed in an oblique prone position on the fluoroscopic table. The skin of the lower back was prepped and draped in the usual sterile fashion. After anesthetizing the skin and deeper sof t tissues with 1% lidocaine, a 22 gauge needle was advanced into the thecal sac at the L2-3 level. 8 cc of clear CSF were obtained. At the conclusion of the procedure the needle was withdrawn and a sterile bandage placed over the pun cture site. The patient tolerated the procedure well without immediate complications. Total fluoro time: 0.9 minutes Images obtained: 3 IMPRESSION: Successful fluoroscopic guided lumbar puncture. All obtained fluid was sent to the lab f or studies requested by the referring physician.
--- NOTE | 2020-10-28 11:32 | PN ---
Subjective: The patient is still confused. Objective: Vital Signs: Blood pressure 170/80, pulse 81, temperature 98.8. Heart: Regular rate and rhythm. Chest: Clear to auscultation. Abdomen: Soft, benign. Bowel sounds are active. Extremities: No edema. No cyanosis. Neurological: The patient is alert, but not oriented. He is confused. Laboratory Data: Blood sugar fingersticks noted. Potassium 3.2, chloride 111. White BC 11.2. Rest of his labs noted. Blood cultures, no growth to date. less than 10,000 colony-forming u nits per mL. Assessment And Plan: 1.Altered mental status from encephalopathy. Brain MRI showed no acute ischemic changes. Lumbar pu ncture studies are pending done by Neurology. I went ahead also on the patient's liver function. T within normal range; however, we will complete altered mental status with blayne cking an ammonia level even though with normal liver functions at this time and we will follow Neurol ogy recommendations according to lumbar puncture study. 2.Type 2 diabetes. Keep the patient on sliding scale. 3.Hypertension, hyperlipidemia, coronary artery disease, and the rest of his chronic medical illness es. We will continue the patient on his home medications. For his blood pressure, I have increased his hydralazine to 75 three times a day with gradually getting systolic to be less. Look orders for deta ils. MFS/MODL Voice ID: [id number] Report ID: [id number]
--- NOTE | 2020-10-28 12:04 | EKG ---
Test Date: 2020-10-25 Test Time: 21:40:08 [employer]: RR MEASUREMENT RESULTS: Intervals: Rate: 78 ND: 148 QRSD: 84 QT: 388 QTc: 442 [place]: P: 57 ND: 148 QRS: 52 T: 45 INTERPRETIVE STATEMENTS: Sinus rhythm with premature supraventricular complexes Otherwise normal ECG Compared to ECG 12/17/2019 10:34:43 No significant changes Electronically Signed On 10-28-20 11:54:58 CDT by Serafin Kelsey
[2020-10-28 12:11] LABS: CSF Glucose 103 mg/dL (40-70)
[2020-10-28 12:46] LABS: Appearance CLEAR (CLEAR); Body Fluid Source CSF; Body Fluid WBC 0 /mm^3; Color of fluid Colorless (COLORLESS); Fluid Total Volume 8.5 ml
[2020-10-28] MEDS: CEFTRIAXONE/SWI 1gm 1 GM/10 ML SYR IV SCH ×2 (20:42→20:43)
[2020-10-28] MEDS: NA CHLORIDE 0.9% 1,000 ML IV SCH (20:42)
[2020-10-28] MEDS: ROSUVASTATIN 10 MG TAB PO SCH (20:43)
[2020-10-29] MEDS: ACETAMINOPHEN 500 MG TAB PO PRN ×2 (01:44→22:59)
[2020-10-29 03:45] LABS: Absolute Lymphocytes (CBC) 1.1 K/uL (0.7-4.9); Basophils % 1.1 % (0-1.3); Hematocrit 45.4 % (39.6-49.0); Lymphocytes % 9.6 % (15.3-44.8); MPV 9.6 fL (7.6-11.3); RBC Red Blood Cell Count 4.65 M/uL (4.33-5.43)
[2020-10-29 03:54] LABS: BUN Blood Urea Nitrogen 16 mg/dL (7-18); Bicarbonate 23 mmol/L (21-32); Glucose Level 170 mg/dL (74-106); Potassium 3.2 mmol/L (3.5-5.1); Sodium Level 144 mmol/L (136-145)
--- NOTE | 2020-10-29 08:18 | ECHO ---
HEIGHT: 5 ft 10 in WEIGHT: 240 lb 0 oz DATE OF STUDY: 10/28/[address]: Susanne Loja MD 2-DIMENSIONAL: YES M.MODE: YES DOPPLER: YES COLOR FLOW: YES TDS: PORTABLE: DEFINITY: BUBBLE STUDY: DIAGNOSIS: CONGESTIVE HEART FAILURE CARDIAC HISTORY: CATHERIZATION: SURGERY: PROSTHETIC VALVE: PACEMAKER: MEASUREMENTS (cm) DIASTOLIC (NORMALS) SYSTOLIC (NORMALS) IVSd 1.0 (0.6-1.2) LA Diam (1.9-4.0) LVEF 70% LVIDd 3.7 (3.5-5.7) LVIDs 2.3 (2.0-3.5) %FS 38% LVPWd 1.3 (0.6-1.2) Ao Diam 3.1 (2.0-3.7) 2 DIMENSIONAL ASSESSMENT: RIGHT ATRIUM: NORMAL LEFT ATRIUM: NORMAL RIGHT VENTRICLE: NORMAL LEFT VENTRICLE: NORMAL TRICUSPID VALVE: NORMAL MITRAL VALVE: NORMAL PULMONIC VALVE: NORMAL AORTIC VALVE: NORMAL PERICARDIAL EFFUSION: NONE AORTIC ROOT: NORMAL LEFT VENTRICULAR WALL MOTION: NORMAL DOPPLER/COLOR FLOW: NORMAL COMMENTS: NORMAL 2-DIMENSIONAL ECHOCARDIOGRAM WITH DOPPLER. NO WALL MOTION ABNORMALITY. NO EFFUSION. TECHNOLOGIST: ROBERT DEWEY
[2020-10-29 08:44] LABS: Magnesium 2.3 mg/dL (1.8-2.4); Phosphorus 2.7 mg/dL (2.5-4.9)
--- NOTE | 2020-10-29 08:54 | EEG ---
CHART: [id number] TEST ID#: [id number] DATE OF STUDY: 10/27/2020 THE EEG WAS RECORDED PORTABLE IN THE PATIENT'S ROOM ON A 17 CHANNEL MACHINE. ELECTRODES WERE APPLIED IN THE USUAL MANNER USING THE INTERNATIONAL 10-20 SYSTEM. THE WAKING BACKGROUND RHYTHM IN THIS RECORD CONSISTS OF FAIRLY WELL DEVELOPED AND FAIRLY WELL ORGANIZED WAVES OF 9 HZ., MAXIMAL IN THE POSTERIOR HEAD REGIONS WHICH ATTENUATE NORMALLY WITH EYE OPENING. MODERATE VOLTAGE 1.5-3 HZ ACTIVITY MIXED WITH LOW VOLTAGE 18-22 HZ ACTIVITY IS EXPRESSED IN THE FRONTAL REGIONS. THERE ARE NO FOCAL OR LATERALIZING FEATURES. NO EPILEPTIFORM ACTIVITY APPEARS. SLEEP OCCURRED NATURALLY. IN ADDTION NORMAL SLEEP PATTERNS ARE PRESENT. HYPERVENTILATION WAS NOT PERFORMED. PHOTIC STIMULATION PRODUCED NO DRIVING BILATERALLY. IMPRESSION: THIS IS A MILDLY ABNORMAL ROUTINE AWAKE AND ASLEEP EEG DUE TO OCCASIONAL FRONTAL SLOW (DELTA) ACTIVITY. THIS IS A NON-SPECIFIC FINDING INDICATING THE PRESENCE OF A MILD DIFFUSE DISTURBANCE IN CEREBRAL ACTIVITY.
[2020-10-29] MEDS ORDERED: POTASSIUM CL SA 10 MEQ TAB PO ONE (09:00)
[2020-10-29] MEDS: FENOFIBRATE 160 MG TAB PO SCH (09:04)
[2020-10-29] MEDS: ASPIRIN EC 81 MG TAB PO SCH (09:05)
[2020-10-29] MEDS: PANTOPRAZOLE 40MG TABLET PO SCH ×2 (09:05→17:15)
[2020-10-29] MEDS: LOSARTAN POTASSIUM 50 MG TABLET PO SCH (09:05)
[2020-10-29] MEDS: CLOPIDOGREL 75 MG TABLET PO SCH (09:05)
[2020-10-29] MEDS: HYDRALAZINE HCL 25 MG TABLET PO SCH ×3 (09:06→22:57)
[2020-10-29] MEDS: DIVALPROEX DR 500MG TAB PO SCH ×2 (09:06→22:57)
[2020-10-29] MEDS: AMLODIPINE 10 MG TAB PO SCH (09:07)
[2020-10-29] MEDS: FUROSEMIDE 20 MG TABLET PO SCH (09:07)
[2020-10-29] MEDS: INSULIN -REGULAR HUMAN 50 UNIT/0.5 ML ML SQ SCH ×4 (09:09→21:00)
[2020-10-29 09:18] VITALS: O2SAT 95
[2020-10-29] MEDS ORDERED: D50W 25 GM/50 ML VIAL IV PRN (14:00)
[2020-10-29] MEDS: CALCIUM CARBONATE CHEW 500MG TAB PO PRN ×2 (17:15→22:58)
[2020-10-29] MEDS: NA CHLORIDE 0.9% 1,000 ML IV SCH (17:20)
--- NOTE | 2020-10-29 18:39 | PN ---
Subjective: The patient is doing much better today. He is alert, oriented x4. He knew my name and his and everybody. The patient has no new complaint, except for he is having some heartburn off and on. Objective: Vital Signs: Blood pressure 155/70, pulse 80, temperature 98.8. Heart: Regular rate and rhythm. Chest: Clear to auscultation. Abdomen: Soft, benign. Neurological: Alert, oriented x4. Grossly intact. Room air pulse oximetry at 95. Laboratory Data: White cell count 11.5, the rest of his CBC is noted. Blood sugar fingersticks note d below 200, more than 100. Ammonia level was 45. CSF fluid, so far the results showing increased g lucose at 103 and total protein at 62 . Microbiology, nothing showing as growing right now . Assessment And Plan: 1.Acute mental status change, encephalopathy resolved by now with etiology of that is still unknown pending rest of CSF fluid studies; however, we will continue same treatment and Rocephin for now. 2.Second chest x-ray did not show an evidence of right basilar pneumonia, although this could still be happening and the patient may have improved just because of the antibiotics to treat that. We ilia l continue this. 3.Hypertension, gradual, better improvement. We will continue the increased dose of hydralazine. 4.Expect discharge in about 1 day or so if the patient continues to do well and if it is okay with N eurology. Look orders for details. MFS/MODL Voice ID: [id number] Report ID: [id number]
[2020-10-29] MEDS: ROSUVASTATIN 10 MG TAB PO SCH (22:58)
[2020-10-30] MEDS ORDERED: POTASSIUM CL SA 10 MEQ TAB PO ONE (05:51)
[2020-10-30 08:15] VITALS: TEMP 98.5
[2020-10-30] MEDS: HYDRALAZINE HCL 25 MG TABLET PO SCH (09:25)
[2020-10-30] MEDS: LOSARTAN POTASSIUM 50 MG TABLET PO SCH (09:25)
[2020-10-30] MEDS: PANTOPRAZOLE 40MG TABLET PO SCH (09:25)
[2020-10-30] MEDS: FENOFIBRATE 160 MG TAB PO SCH (09:26)
[2020-10-30] MEDS: CLOPIDOGREL 75 MG TABLET PO SCH (09:26)
[2020-10-30] MEDS: FUROSEMIDE 20 MG TABLET PO SCH (09:26)
[2020-10-30] MEDS: AMLODIPINE 10 MG TAB PO SCH (09:26)
[2020-10-30] MEDS: ASPIRIN EC 81 MG TAB PO SCH (09:26)
[2020-10-30] MEDS: DIVALPROEX DR 500MG TAB PO SCH (09:26)
[2020-10-30 11:54] VITALS: BP 169/80
[2020-10-30] MEDS ORDERED: METOPROLOL TAR 25 MG TAB PO SCH (18:00)
--- NOTE | 2020-10-31 00:33 | DS ---
Date of Discharge: 10/30/2020 History Of Present Illness: A 65-year-old male was admitted to the hospital because of acute mental status change when he was confused, not knowing the names of his family relatives and his whereabouts . Past Medical History: As per the admit note. Social History: As per the admit note. Family History: As per the admit note. Medications: As per the admit note. Allergies: PER THE ADMIT NOTE. Physical Examination: As per the admit note. Diagnostic Data: As per the admit note. Hospital Course: The patient was admitted to the hospital. Initial workup did not disclose any abno rmality. Chest x-ray suggested a right basilar pneumonia. The patient had 1 time increased temperat ure up to 100 Fahrenheit while in the hospital. He was put on Rocephin IV 1 g. He did well with rox t. The patient stayed for about [address] Patel, Neurology has seen him. Lumbar pu ncture was done and did not yield any specific etiology for his encephalopathy, I checked his ammonia . His liver functions were also within normal range. Although the patient drinks alcohol daily, but his ammonia level was 45 within range. I will continue the patient on sliding scale for his diabete s. Also worked on his high blood pressure and increased his hydralazine 75 mg t.i.d. and added metop rolol 25 mg b.i.d. The patient since yesterday, he regained awareness and his mentality was back to normal. He knows me, knows his whereabouts, and knows his and today he was asking when he can g o home. So far, cultures also disclosed no offending pathogen. Brain MRI, no acute pathology. Echo cardiogram on his heart showed left ventricular ejection fraction of about 70%. Cytology on his CSF showed no cancer cells. At this time, the etiology of his encephalopathy is unclear. However, the p atient has regained full mental capacity and he is hemodynamically stable. I think he could be disch arged home on Z-Raul and also we will increase his dosage of blood pressure medications. We will foll ow him up as an outpatient and also patient followup with Dr. Patel. We will discharge him if it is okay with Dr. Patel. Look orders for details. MFS/MODL Voice ID: [id number] Report ID: [id number]
== END 2020-10-30 15:21 | disposition home health service (06) | DRG 70 ==
LOC: ER 21:09 → 2ND 10-26 03:01
PROVIDERS: ADMIT Internal Medicine; ATTEND Internal Medicine
PROC: 009U3ZX Drainage of Spinal Canal, Percutaneous Approach, Diagnostic (ICD-10-PCS; principal; 2020-10-28)
DX: G93.40 Encephalopathy, unspecified (principal); J18.9 Pneumonia, unspecified organism; E11.9 Type 2 diabetes mellitus without complications; I10 Essential (primary) hypertension; E78.5 Hyperlipidemia, unspecified; I25.10 Atherosclerotic heart disease of native coronary artery without angina pectoris; E87.6 Hypokalemia; Z88.0 Allergy status to penicillin; Z20.822 Contact with and (suspected) exposure to COVID-19
CPT/HCPCS: 36415; 70450; 70551; 70553; 71045; 71046; 77003; 80048; 80061; 80076; 81003; 81015; 82140; 82550; 82553; 82945; 82947; 83605; 83735; 84100; 84132; 84145; 84157; 84484; 85025; 85610; 85730; 86592; 87015; 87040; 87070; 87086; 87088; 87116; 87206; 88108; 88305; 89050; 93005; 93306; 95819; 96365; 96375; 97112; 97116; 97162; 99285; A9577; J0360; J0696; J7030; J7050; U0003

== ENCOUNTER 2022-07-18 10:16 | Emergency (ER) | payer OTHER, MEDICARE ==
--- OUTSIDE RECORDS SUMMARY | 2022-07-18 10:19 | XMS REPORT | Continuity of Care Document ---
:1955 Author Organization [facility] t Address [address] Means. [address] [place] [id number] Care Team Providers Name Role Phone Susanne Loja Primary Care Physician ROBYN COCHRAN Attending Clinician Unavailable rEna HEATON, Janice Cruz Attending Clinician GAYLE ARCE Attending Clinician Unavailable Payers Payer Name Policy Type Policy Number Effective Date Expiration Date S rito MEDICARE PART A [id number] 2020 AND B 00:00:00 CIGNA [id number] 2020 2020 00:00:00 00:00:00 CIGNA II [id number] 2020 00:00:00 Problems Condition Condition Condition Status Onset Resolution Last Treating Co mments Source Name Details Category Date Date Treatment Clinician Date SOB SOB Disease Active [facility] (shortness (shortness 8-17 st of breath) of breath) 00:00: Ho spita 00 l Pedal Pedal Disease Active [facility] edema edema 8-17 st 00:00: Hospita 00 l CAD in CAD in Disease Active Methodi kaltag kaltag 9-12 st artery artery 00:00: Hospita 00 l Carotid Carotid Disease Active [facility]i disease, disease, 9-12 st bilateral bilateral 00:00: Hosp sunny 00 l Essential Essential Disease Active Met hodi hypertensi hypertensi 3-07 st on on 00:00: Hospita 00 l Coronary Coronary Disease Active Metho di arterioscl arterioscl 08-02 st erosis erosis 00:00: Hospita 00 l Carotid Carotid Disease Active Methodi artery artery 3 st disease disease 00:00: Hospita 00 l Allergies, Adverse Reactions, Alerts Allergy Allergy Status Severity Reaction(s) Onset Inactive Treating Comm ents Source Name Type Date Date Clinician NO KNOWN Drug Active Univers ALLERGIE Class ity of S [facility] Penicill Propensi Active Method i ins ty to st adverse Hospita reaction l s to drug Social History Social Habit Start Date Stop Date Quantity Comments Source History of tobacco Smokes tobacco [facility] use daily Exposure to 2022-02-11 2022-02-21 Not sure [facility] SARS-CoV-2 (event) 00:00:00 10:19:00 Alcohol intake 2019-07-02 2019-07-02 Current drinker [facility] dist 00:00:00 00:00:00 of alcohol Hospital (finding) Cigarettes smoked 2017-09-12 2017-09-[address] current (pack per 00:00:00 00:00:00 Hospita l day) - Reported Tobacco use and 2017-09-12 2017-09-12 Smokeless tobacco [facility] exposure 00:00:00 00:00:00 non-user Hospital Sex Assigned At [birth year] [employer] 00:00:00 00:00:00 Hospital Smoking Status Start Date Stop Date Source Smokes tobacco daily 2021-02-07 00:00:00 [facility] Medications Ordered Filled Start Stop Current Ordering Indication Dosage Frequency Signature Comments Components Source Medication Medication Date Date Medication? Clinician (SIG) Name Name fenofibrate Yes 145mg QD Take 145 M ethodi (TRICOR) 8-[address] 145 MG 11:02: mouth Hospita tablet 25 daily. l metFORMIN Yes Take 1 Method i (GLUCOPHAGE 8-[address] ) 1,000 mg 11:02: twice a Hosp sunny tablet 25 day by l oral route. pantoprazol Yes 20mg Q.5D Take 20 mg Methodi e 8-[address] (PROTONIX) 11:02: (two) Hospit a 20 MG EC 25 times a l tablet day. losartan 2021-0 Yes 100mg QD Take 100 Meth sejal (COZAAR) 8-[address] 100 MG 11:02: mouth Hospita tablet 25 daily. l hydroCHLORO 2021-0 Yes 12.5mg QD Take 12.5 Methodi thiazide 8-[address] (HYDRODIURI 11:02: mouth Hospi ta L) 12.5 MG 25 daily. l tablet furosemide 2021-0 Yes TAKE 1 Metho di (LASIX) 40 8-08 TABLET(40 st mg tablet 00:00: MG) BY Hospit a 00 MOUTH l DAILY amLODIPine 2021-0 Yes 10mg QD Take 1 Metho di (NORVASC) 7-26 tablet (10 st 10 mg 00:00: mg total) Hospita tablet 00 by mouth l daily. metoprolol 2021-0 Yes 50mg Q.5D Take 1 Metho di tartrate 5-31 tablet (50 st (LOPRESSOR) 00:00: mg total) H ospita 50 mg 00 by mouth 2 l tablet (two) times a day. metoprolol 2021-0 3- No 100mg Q.5D Take 1 Met hodi tartrate 2-15 02-[address] (LOPRESSOR) 00:00: 05:59 (100 mg Ho spita 100 mg 00 :00 total) by l tablet mouth 2 (two) times a day. tamsulosin 2020-0 Yes QD Take by [facility] (Flomax) 9-02 mouth 1 Health 0.4 MG 24 00:00: (one) time hr capsule 00 each day. tamsulosin 2020-0 Yes QD Take by UT (Flomax) 9-02 mouth 1 Health 0.4 MG 24 00:00: (one) time hr capsule 00 each day. tamsulosin 2021-0 Yes QD Take by UT (Flomax) 9-02 mouth 1 Health 0.4 MG 24 00:00: (one) time hr capsule 00 each day. tamsulosin 2021-0 Yes QD Take by UT (Flomax) 9-02 mouth 1 Health 0.4 MG 24 00:00: (one) time hr capsule 00 each day. furosemide 2020-0 Yes UT (Lasix) 40 8-17 Health MG tablet 00:00: 00 furosemide 2020-0 Yes UT (Lasix) 40 8-17 Health MG tablet 00:00: 00 furosemide 2020-0 Yes UT (Lasix) 40 8-17 Health MG tablet 00:00: 00 furosemide 2020-0 Yes UT (Lasix) 40 8-17 Health MG tablet 00:00: 00 furosemide 2020-0 2022- No 40mg QD Take 1 Meth sejal (LASIX) 40 8-17 08-08 tablet (40 st mg tablet 00:00: 00:00 mg total) Ho spita 00 :00 by mouth l daily. gabapentin Yes TAKE 1 UT (Neurontin) 7-26 TABLET BY a lth 600 MG 00:00: MOUTH 5 tablet 00 TIMES DAILY FOR NERVE PAIN DIRECTED metFORMIN Yes 1000mg Q.5D Take 1,000 UT (Glucophage 7-26 mg by [facility] ) 1000 MG 00:00: mouth 2 tablet 00 (two) times a day. gabapentin Yes TAKE 1 UT (Neurontin) 7-26 TABLET BY [facility] lt 600 MG 00:00: MOUTH 5 tablet 00 TIMES DAILY FOR NERVE PAIN DIRECTED metFORMIN Yes 1000mg Q.5D Take 1,000 UT (Glucophage 7-26 mg by Health ) 1000 MG 00:00: mouth 2 tablet 00 (two) times a day. gabapentin Yes TAKE 1 UT (Neurontin) 7-26 TABLET BY a lth 600 MG 00:00: MOUTH 5 tablet 00 TIMES DAILY FOR NERVE PAIN DIRECTED metFORMIN Yes 1000mg Q.5D Take 1,000 UT (Glucophage 7-26 mg by [facility] ) 1000 MG 00:00: mouth 2 tablet 00 (two) times a day. gabapentin Yes TAKE 1 UT (Neurontin) 7-26 TABLET BY a lth 600 MG 00:00: MOUTH 5 tablet 00 TIMES DAILY FOR NERVE PAIN DIRECTED metFORMIN Yes 1000mg Q.5D Take 1,000 UT (Glucophage 7-26 mg by Health ) 1000 MG 00:00: mouth 2 tablet 00 (two) times a day. rosuvastati Yes 40mg QD Take 40 mg UT n (Crestor) 7-15 by mouth 1 He alth 40 MG 00:00: (one) time tablet 00 each day. clopidogrel Yes 75mg QD Take 75 mg UT (Plavix) 75 7-15 by mouth 1 He alth MG tablet 00:00: (one) time 00 each day. rosuvastati 2021-0 Yes 40mg QD Take 40 mg UT n (Crestor) 7-15 by mouth 1 He alth 40 MG 00:00: (one) time tablet 00 each day. clopidogrel 2021-0 Yes 75mg QD Take 75 mg UT (Plavix) 75 7-15 by mouth 1 He alth MG tablet 00:00: (one) time 00 each day. rosuvastati 2021-0 Yes 40mg QD Take 40 mg UT n (Crestor) 7-15 by mouth 1 He alth 40 MG 00:00: (one) time tablet 00 each day. clopidogrel 2021-0 Yes 75mg QD Take 75 mg UT (Plavix) 75 7-15 by mouth 1 He alth MG tablet 00:00: (one) time 00 each day. rosuvastati 2021-0 Yes 40mg QD Take 40 mg UT n (Crestor) 7-15 by mouth 1 He alth 40 MG 00:00: (one) time tablet 00 each day. clopidogrel 2021-0 Yes 75mg QD Take 75 mg UT (Plavix) 75 7-15 by mouth 1 He alth MG tablet 00:00: (one) time 00 each day. metoprolol 2021-0 Yes 25mg Q.5D Take 25 mg U T tartrate 7-01 by mouth 2 Healt h (Lopressor) 00:00: (two) 25 MG 00 times a tablet day. metoprolol 2021-0 Yes 25mg Q.5D Take 25 mg U T tartrate 7-01 by mouth 2 Healt h (Lopressor) 00:00: (two) 25 MG 00 times a tablet day. metoprolol 2021-0 Yes 25mg Q.5D Take 25 mg U T tartrate 7-01 by mouth 2 Healt h (Lopressor) 00:00: (two) 25 MG 00 times a tablet day. metoprolol 2021-0 Yes 25mg Q.5D Take 25 mg U T tartrate 7-01 by mouth 2 Healt h (Lopressor) 00:00: (two) 25 MG 00 times a tablet day. hydrALAZINE 2021-0 Yes 75mg Q.99578303 Take 75 mg UT (Apresoline 6-04 [id number] by mouth 3 Health ) 25 MG 00:00: 3D (three) tablet 00 times a day. hydrALAZINE Yes 75mg Q.[id number] Take 75 mg UT (Apresoline 6-04 [id number] by mouth 3 Health ) 25 MG 00:00: 3D (three) tablet 00 times a day. hydrALAZINE Yes 75mg Q.11502774 Take 75 mg UT (Apresoline 6-04 [id number] by mouth 3 Health ) 25 MG 00:00: 3D (three) tablet 00 times a day. hydrALAZINE Yes 75mg Q.85520404 Take 75 mg UT (Apresoline 6-04 [id number] by mouth 3 Health ) 25 MG 00:00: 3D (three) tablet 00 times a day. losartan 2019-05 Yes TK 1 T PO UT (Cozaar) 1-22 QD Health 100 MG 00:00: tablet 00 losartan 2019-05 Yes TK 1 T PO UT (Cozaar) 1-22 QD Health 100 MG 00:00: tablet 00 losartan 2019-05 Yes TK 1 T PO UT (Cozaar) 1-22 QD Health 100 MG 00:00: tablet 00 losartan 2019-05 Yes TK 1 T PO UT (Cozaar) 1-22 QD Health 100 MG 00:00: tablet 00 gabapentin Yes Q.63806211 3 (three) Methodi (NEURONTIN) 3-[id number] 600 mg 00:00: 3D day. 4-5 Hospita tablet 00 times a l day TOUJEO Yes 85 Methodi SOLOSTAR 07-07 st 300 unit/mL 00:00: Hospit a (1.5 mL) 00 l insulin pen clopidogrel Yes 75mg QD Take 75 mg Methodi (PLAVIX) 75 06-[address] mg tablet 00:00: daily. Hospit a 00 l rosuvastati Yes 20mg QD Take 20 mg Methodi n (CRESTOR) -[address] 20 MG 00:00: daily. Hospita tablet 00 l Vital Signs Vital Name Observation Time Observation Value Comments Source Systolic blood 2021-02-15 16:13:00 168 mm[Hg] [facility] pressure Diastolic blood 2021-02-15 16:13:00 89 mm[Hg] [facility] pressure Heart rate 2021-02-15 16:13:00 76 /min [facility] Body temperature 2021-02-15 16:13:00 36.78 Asya [facility] Body height 2021-02-15 16:13:00 177.8 cm [facility] Body weight 2021-02-15 16:13:00 116.121 kg [facility] BMI 2021-02-15 16:13:00 36.73 kg/m2 [facility] Systolic blood 2022-01-11 16:05:00 114 mm[Hg] [facility] Hospital pressure Diastolic blood 2022-01-11 16:05:00 56 mm[Hg] [facility] Hospital pressure Heart rate 2022-01-11 16:05:00 62 [facility] 2022-01-11 16:05:00 177.8 cm [facility] Body weight 2022-01-11 16:05:00 [email or web address] BMI 2022-01-11 16:05:00 35.87 kg/m2 [facility] Procedures Procedure Date / Time Performed Performing Clinician [facility] e ECG 12-LEAD 2022-01-11 15:58:04 Janice Huff Plan of Care Planned Activity Planned Date Details Comments Source Future Scheduled 2022-06-28 65+ [address]NEUMOCO[address] [facility] Test 13:51:12 VACCINE (1 - PCV) [code = 65+ PNEUMOCOCCAL VACCINE (1 - PCV)] Future Scheduled 2022-06-28 Hepatitis C screening [facility] Test 13:51:12 (procedure) [code = 127637374] Future Scheduled 2022-06-28 COLONOSCOPY SCREENING [facility] Test 13:51:12 [code = COLONOSCOPY SCREENING] Future Scheduled 2022-06-28 SHINGLES VACCINES (1 Met [facility] Test 13:51:12 of 2) [code = SHINGLES VACCINES (1 of 2)] Future Scheduled 2022-06-28 COVID-19 VACCINE (3 - [facility] Test 13:51:12 Booster for Pfizer series) [code = COVID-19 VACCINE (3 - Booster for Pfizer series)] Future Scheduled 2022-06-28 INFLUENZA VACCINE [facility] Test 13:51:12 [code = INFLUENZA VACCINE] Encounters Start End Encounter Admission Attending Care Care Encounter Source Date/Time Date/Time Type Type Clinicians Facility Department ID 2021-08-16 Outpatient DIMAS [facility] [id number] [place] 11:08:17 [facility]ly [facility] 2020-10-03 Outpatient DIMAS [facility] [id number] [place] 03:46:01 [facility] 2023-02-20 2023-02-20 Outpatient DIMAS, [facility] [id number] [place] 10:30:00 10:30:00 [facility] 2022-02-21 2022-02-21 [facility] [id number] [place] 10:45:00 10:58:44 Visit [facility] [id number] [facility] [place] [id number] 2022-01-11 2022-01-11 Office Erna 1.2.840.1 [id number] Methodi 11:00:00 14:42:56 Visit Janice Juan50.1.[address] 3.430.2.7 Hospit a .3.088097 l .8 2022-01-11 2022-01-11 [id number] [place] 00:00:00 00:00:[address] 2022-01-11 2022-01-11 Travel 1.2.840.1 [id number] Methodi 00:00:00 00:00:[address] 3.430.2.7 0.2.7.3.698 Ho spita .3.712363 084.8 l .8 2022-01-01 2022-01-01 Refill Erna 1.2.840.1 [id number] Methodi 00:00:00 00:00:00 Janice Cruz [id number] 3.430.2.7 Hospit a .3.633653 l .8 2021-12-23 2021-12-23 Telephone Erna 1.2.840.1 [id number] Methodi 00:00:00 00:00:00 Janice Cruz 95572.1.[address] 3.430.2.7 Hospit a .3.732178 l .8 2021-08-16 2021-08-16 Office Cochran, [facility] [id number] [place] 11:00:00 11:06:15 Visit [facility] [id number] [facility] [place] [id number] 2021-07-13 2021-07-13 [facility] [id number] [place] 00:00:00 00:00:[address] JANICE [address] 2021-02-15 2021-02-15 [facility] [id number] [place] 11:06:30 11:30:40 Visit [facility] [id number] [facility] [place] [id number] 2021-01-22 2021-01-22 [facility] [id number] [place] 00:00:00 00:00:00 JANICE [address] 2021-01-12 2021-01-12 [facility] [id number] [place] 00:00:00 00:00:00 JANICE [address] 2020-07-28 2020-07-28 Outpatient Armando [facility]CE [facility] [id number] [facility] 14:20:00 14:20:[address] [facility] 2020-06-30 2020-06-30 [facility] [id number] [place] 00:00:00 00:00:00 JANICE [address] Results Test Description Test Time Test Comments Results Result Comments Source ECG 12 lead 2022-01-12 01:39:49 Test Item Value Reference Range Interpretation Comme nts Ventricular rate (test code = 253) 62 Atrial rate (test code = 255) 62 AR interval (test code = 266) 174 QRSD interval (test code = 260) 84 QT interval (test code = 264) 420 QTC interval (test code = 265) 426 P axis 1 (test code = 267) 73 QRS axis 1 (test code = 268) 39 T wave axis (test code = 270) 67 EKG impression (test code = 273) Normal sinus rhythm-Nonspecific T wave abnormality-Abnormal ECG-In automated comparison with ECG of 12-JAN-2021 13:36,-No significant change was found- [facility]
[2022-07-18 10:50] LABS: Arterial Blood Carboxyhemoglob 1.2 % (0-1.5); Blood Gas Oxyhemoglobin 90.1 % (94-97); Blood O2 Saturation 92.4 % (92-98.5)
[2022-07-18 11:15] LABS: Protime INR 2.05
[2022-07-18] MEDS ORDERED: HYDROCORTISONE SUC 100 MG INJ ONE (11:27)
[2022-07-18] MEDS ORDERED: NA CHLORIDE 0.9% 100 ML ONE (11:27)
[2022-07-18] MEDS ORDERED: Meropenem 1000 MG/VIAL IV ONE (11:27)
[2022-07-18] MEDS ORDERED: NA CHLORIDE 0.9% 1,000 ML ONE ×2 (11:27→12:23)
[2022-07-18] MEDS ORDERED: Nicardipine/NS 25 MG/250 ML KIT IV ONE (11:28)
[2022-07-18] MEDS ORDERED: FAMOTIDINE 20 MG/2 ML VIAL IV ONE (11:28)
[2022-07-18 11:49] LABS: SARS-COV-2 RT PCR NEGATIVE (NEGATIVE)
--- NOTE | 2022-07-18 11:55 | RAD REPORT ---
EXAM DESCRIPTION: CT - Head C Spine Mpr Wo Con - 07/18/2022 11:43 am CLINICAL HISTORY: Head and neck injury status post fall. Head and neck pain COMPARISON: 2012 TECHNIQUE: Computed axial tomography of the head and cervical spine was obtained. Sagittal and coronal reconstruction was performed. All CT scans are performed using dose optimization technique as appropriate and may include automated exposure control or mA/KV adjustment according to patient size. FINDINGS: An intracranial bleed is not seen. The ventricles are normal in caliber. Moderate low-density within periventricular, deep and subcortical white matter may represent ischemic changes secondary to small vessel disease. . An extra-axial fluid collection is not noted. Fluid within the visualized sinuses and mastoids is not seen Postsurgical changes involve cervical spine. Marked disc space narrowing C3-4. Mild posterior subluxation. Well-circumscribed lucency within the v ertebral body C3 unchanged from 2012 is benign. Mild anterior subluxation C5 on C6. Marked disc space narrowing distal cervical spine. No fracture or dislocation visualized. IMPRESSION: No acute intracranial abnormality is seen. A cervical fracture is not visualized. If the patient continues to have symptoms to suggest intracranial /spinal cord/ligamentous pathology then MRI would be recommended
[2022-07-18] MEDS ORDERED: ALTEPLASE 2 MG/VIAL IV ONE (12:03)
--- NOTE | 2022-07-18 12:05 | RAD REPORT ---
EXAM DESCRIPTION: CT - Chest For Pe Angio - 07/18/2022 11:43 am CLINICAL HISTORY: Shortness of breath COMPARISON: None. TECHNIQUE: Dynamically enhanced axial 3 mm thick images of the chest were obtained during administra tion of 95 mL Isovue 370 IV contrast. Coronal and oblique reconstruction images were generated and re viewed. Exam utilizes a protocol for optimal evaluation of pulmonary arterial tree. Maximum intensity projections 3D imaging was utilized All CT scans are performed using dose optimization technique as appropriate and may include automated exposure control or mA/KV adjustment according to patient size. FINDINGS: Masses thrombus within main, left main, right main and the bilateral arterial pulmonary br anches. Bilateral saddle pulmonary emboli. Right heart strain is present A thoracic aortic aneurysm is not noted. A pleural effusion is not seen. A pericardial effusion is not seen. No pulmonary infarct. 11 millimeter cavitary right upper lobe nodule IMPRESSION: Massive bilateral pulmonary emboli including saddle emboli. The examination was discussed with Doctor Cox
--- NOTE | 2022-07-18 12:08 | RAD REPORT ---
EXAM DESCRIPTION: CT - Abdomen Pelvis W Contrast - 07/18/2022 11:43 am CLINICAL HISTORY: Abdominal pain COMPARISON: none. TECHNIQUE: Computed axial tomography of the abdomen pelvis was obtained. 100 cc Isovue-300 was admin istered intravenously. Oral contrast was not requested which limits evaluation of bowel and appendix All CT scans are performed using dose optimization technique as appropriate and may include automated exposure control or mA/KV adjustment according to patient size. FINDINGS: The liver, spleen, pancreas, adrenal and kidneys do not demonstrate a significant abnormal ity Garcia catheter within the bladder. No evidence of diverticulitis. No free air. Normal appendix Small to moderate bilateral inguinal hernias Rectum is mildly distended with stool IMPRESSION: Rectum is mildly distended with stool
[2022-07-18] MEDS ORDERED: ALTEPLASE 1 MG/ML *Bolus for stroke orders only IV ONE (12:09)
[2022-07-18] MEDS ORDERED: ALTEPLASE 100 MG/100 ML IV ONE (12:09)
--- NOTE | 2022-07-18 12:19 | ER ---
Nurse's Notes [facility] Name: Marc Sanches Jr Age: 67 yrs Sex: Male : 1955 Arrival Date: 07/18/2022 Time: 10:25 Bed 3 Private MD: Diagnosis: Other pulmonary embolism with acute cor pulmonale-saddle;Syncope Near;Anemia, unspecified;Dyspnea Presentation: 07/18 10:25 Chief complaint: EMS states: "pt was at outpatient rehab and became unresponsive and mb9 unconscious. When we arrived on scene, pt was AAOx4 and 82% on room air. Placed pt on 6 l/min and went up to 90%. Bgl 152". Coronavirus screen: Vaccine status: Patient reports receiving the 2nd dose of the covid vaccine. Ebola Screen: No symptoms or risks identified at this time. Initial Sepsis Screen: Does the patient meet any 2 criteria? RR > 20 per min. Does the patient have a suspected source of infection? No. Patient's initial sepsis screen is negative. Risk Assessment: Do you want to hurt yourself or someone else? Patient reports no desire to harm self or others. Onset of symptoms was July 18, 2022. 10:25 Method Of Arrival: EMS: [facility] mb9 10:25 Acuity: DEYSI 2 mb9 Historical: - Allergies: 10:30 PENICILLINS; mb9 - PMHx: 10:30 Diabetes - IDDM; High Cholesterol; Hypertension; Chronic obstructive lung disease; mb9 - Immunization history:: Adult Immunizations up to date. - Social history:: Smoking status: Patient reports the use of cigarette tobacco products, 1-2 a day. - Family history:: not pertinent. Screenin:31 [facility] ED Fall Risk Assessment (Adult) History of falling in the last 3 months, mb9 including since admission Yes- physiologic fall (2 pts) Confusion or Disorientation No (0 pts) Intoxicated or Sedated No (0 pts) Impaired Gait No (0 pts) Mobility Assist Device Used No (0 pt) Altered Elimination No (0 pt) Score/Fall Risk Level 0 - 2 = Low Risk Oriented to surroundings, Maintained a safe environment, Educated pt \\T\\ family on fall prevention, incl call for assistance when getting out of bed. Abuse screen: Denies threats or abuse. Nutritional screening: No deficits noted. Tuberculosis screening: No symptoms or risk factors identified. Assessment: 10:25 General: Appears uncomfortable, Behavior is anxious. Pain: Denies pain. Neuro: Level of mb9 Consciousness is awake, alert, obeys commands, Oriented to person, place, time, situation, Appropriate for age. 10:25 Cardiovascular: Capillary refill < 3 seconds is brisk Rhythm is regular. Respiratory: mb9 Airway is patent Respiratory effort is labored, Respiratory pattern is tachypnea. GI: Abdomen is round non-distended, Bowel sounds present X 4 quads. Abd is soft and non tender X 4 quads. : Urine is clear. EENT: No signs and/or symptoms were reported regarding the EENT system. Derm: Skin is fragile, is thin, Skin is dry, Skin is pale, Skin temperature is warm. Musculoskeletal: Range of motion: intact in all extremities. 10:51 Reassessment: Rapid response called. Pt became unresponsive and diaphoretic, pale, and mb9 cool. Pt placed on Non rebreather with SpO2 94%. Dr. Cox and charge nurse, Sahra, at bedside. 11:06 Reassessment: Received patient from Gabriela Guzman RN at this time. RT at bedside. Pt ld1 AAOX4. Family at bedside. Non rebreather on patient - SpO2 91%. 11:50 Reassessment: Pt back from CT. ld1 12:20 Reassessment: SAVANNA Bocanegra at bedside collected labs. Administered TPA at this time. ld1 12:30 Reassessment: No changes from previously documented assessment. Patient and/or family ld1 updated on plan of care and expected duration. Pain level reassessed. Patient states symptoms have not improved. 13:04 Reassessment: No changes from previously documented assessment. Patient and/or family ld1 updated on plan of care and expected duration. Pain level reassessed. Life flight and ERP at bedside - pt being transported to [facility]. Pt stable at this time. SpO2 99% nonrebreather at 15lpm. Neuro: Level of Consciousness is awake, alert, obeys commands, Oriented to person, place, time, situation, Appropriate for age. Cardiovascular: Capillary refill < 3 seconds. Respiratory: Airway is patent Respiratory effort is even, labored, Respiratory pattern is tachypnea the patient has moderate shortness of breath. GI: Abdomen is round non-distended. Vital Signs: 10:25 BP 117 / 75; Pulse 83; Resp 22; Temp 98.4(O); Pulse Ox 94% on 6 lpm NC; Weight 112.49 mb9 kg (R); Height 5 ft. 10 in. (177.80 cm); Pain 0/10; 10:51 BP 159 / 142; Pulse 41; Resp 22; Pulse Ox 94% on 15% Non-rebreather mask; mb9 11:37 BP 152 / 107; Pulse 92; Resp 25; Pulse Ox 98% on Non-rebreather mask; ld1 11:50 BP 118 / 56; Pulse 85; Resp 18; Pulse Ox 100% on 15% Non-rebreather mask; ld1 12:10 BP 145 / 87; Pulse 90; Resp 21; Pulse Ox 100% on Non-rebreather mask; ld1 12:33 BP 91 / 67; Pulse 89; Resp 26; Pulse Ox 100% on Non-rebreather mask; ld1 10:25 Body Mass Index 35.58 (112.49 kg, 177.80 cm) mb9 [place] Coma Score: 12:07 Eye Response: spontaneous(4). Verbal Response: oriented(5). Motor Response: obeys samy commands(6). Total: 15. NIH Stroke Scale Scores: 10:25 NIHSS Score: 0 mb9 12:07 NIHSS Score: 0 [facility] ED Course: 10:25 Patient arrived in ED. mb9 10:25 Inserted saline lock: 20 gauge in right hand, using aseptic technique. ,using aseptic mb9 technique. done by EMS. 10:30 Triage completed. mb9 10:30 Arm band placed on. mb9 10:31 Zoran Cox MD is Attending Physician. samy 10:31 Placed in gown. Bed in low position. Call light in reach. Side rails up X 1. Client mb9 placed on continuous cardiac and pulse oximetry monitoring. NIBP monitoring applied. site monitor on. 10:34 Gabriela Caruso, SAVANNA is Primary Nurse. mb9 10:40 EKG done, by ED staff, reviewed by Zoran Cox MD. Inserted saline lock: 18 gauge in mb9 right forearm, using aseptic technique. 10:55 Garcia cath inserted, using sterile technique, 16 Fr., by tx, balloon inflated, to mb9 gravity drainage, urine specimen collected. returned clear yellow urine. Patient tolerated well. 11:06 Report received from Gabriela Guzman RN. ld1 12:[address] Cox with ELSIE Rico from the [facility] Transfer Center. eb 12:[address] Cox with Josselyn Beauchamp from the [facility] transfer enter. eb 12:08 AMMONIA Sent. ld1 12:14 ELSIE Rico from the transfer center called to deny the patient in transfer/ there are no eb ICU beds available at any of the [facility] and will have to decline the patient in transfer. 12:31 connected the executive search consultant intelligence consultant for [facility] with Dr. Cox for patient transfer eb consultation. 12:[address] given to Dr. Cox by Josselyn Beauchamp/ patient has been eb accepted to [facility] ICU [facility] 12 bed 104/ Dr Glass has accepted the patient in transfer/ report to be called to the transfer center [phone]. 13:12 No provider procedures requiring assistance completed. Patient transferred, IV remains ld1 in place. Administered Medications: 11:48 Drug: NS 0.9% 1000 ml Route: IV; Rate: 1 bolus; Site: right wrist; ld1 11:49 Drug: Pepcid (famotidine) 20 mg Route: IVP; Site: right hand; ld1 11:50 Drug: Solu-CORTEF (hyrdoCORTISONE) 100 mg Route: IVP; Site: right hand; ld1 11:54 Not Given (Pt blood pressure loww): niCARdipine 5 mg/hr IV at per protocol See ld1 Administration Instructions; (Standard concentration 25 mg / 250 mL NS); Recommended max rate 15 mg/hr; Titrate 2.5 mg/hr as often as every 15 minutes to achieve goal (see titration policy); Goal parameter SBP less than 160 mmHg 12:07 Not Given (Duplicate Order): Meropenem 1 grams IV at per protocol once; (mix in NS 100 samy mL) 12:20 Drug: ACTIvase (alteplase) {Co-Signature: ss (Sahra Sosa RN).} Route: IV ld1 Thrombolytics; Rate: calculated rate; Infused Over: 60 mins; 12:24 Drug: ProTONIX (pantoprazole) 40 mg Route: IVP; Site: right antecubital; ld1 12:24 Drug: NS 0.9% 1000 ml Route: IV; Rate: 1 bolus; Site: right antecubital; ld1 Medication: 13:11 VIS not applicable for this client. ld1 Outcome: 12:19 ER care complete, transfer ordered by samy 13:12 Transferred by helicopter to [facility]. ld1 13:12 Condition: stable 13:12 Instructed on the need for transfer. 13:13 Patient left the ED. ld1 NIH Stroke Scale - NIH Stroke Score Date: 07/18/2022 Time: 10:25 Total Score = 0 1a. Level of Consciousness (LOC) - 0(Alert) 1b. Level of Consciousness (LOC) (Month \\T\\ Age) - 0(Both) 1c. LOC Commands (Open \\T\\ Closes Eyes/Curatorial Assistant) - 0(Both) 2. Best Gaze (Lateral Gaze Paresis) - 0(Normal) 3. Visual Field Loss - 0(No visual loss) 4. Facial Palsy - 0(Normal) 5a. Left Arm: Motor (10-second hold) - 0(No drift) 5b. Right Arm: Motor (10-second hold) - 0(No drift) 6a. Left Leg: Motor (5-second hold - always test supine) - 0(No drift) 6b. Right Leg: Motor (5-second hold - always test supine) - 0(No drift) 7. Limb Ataxia (finger/nose \\T\\ heel/haro - test with eyes open) - 0(Absent) 8. Sensory Loss (pinprick arms/legs/face) - 0(Normal) 9. Best Language: Aphasia (description/naming/reading) - 0(No aphasia) 10. Dysarthria (speech clarity - read or repeat words) - 0(Normal) 11. Extinction and Inattention (visual/tactile/auditory/spatial/personal) - 0(No abnormality) Initials: mb9 NIH Stroke Scale - NIH Stroke Score Date: 07/18/2022 Time: 12:07 Total Score = 0 1a. Level of Consciousness (LOC) - 0(Alert) 1b. Level of Consciousness (LOC) (Month \\T\\ Age) - 0(Both) 1c. LOC Commands (Open \\T\\ Closes Eyes/Curatorial Assistant) - 0(Both) 2. Best Gaze (Lateral Gaze Paresis) - 0(Normal) 3. Visual Field Loss - 0(No visual loss) 4. Facial Palsy - 0(Normal) 5a. Left Arm: Motor (10-second hold) - 0(No drift) 5b. Right Arm: Motor (10-second hold) - 0(No drift) 6a. Left Leg: Motor (5-second hold - always test supine) - 0(No drift) 6b. Right Leg: Motor (5-second hold - always test supine) - 0(No drift) 7. Limb Ataxia (finger/nose \\T\\ heel/haro - test with eyes open) - 0(Absent) 8. Sensory Loss (pinprick arms/legs/face) - 0(Normal) 9. Best Language: Aphasia (description/naming/reading) - 0(No aphasia) 10. Dysarthria (speech clarity - read or repeat words) - 0(Normal) 11. Extinction and Inattention (visual/tactile/auditory/spatial/personal) - 0(No abnormality) Initials: samy Signatures: Zoran Cox MD MD cha Botello, Elizabeth eb Dibbern, Lauren RN RN ld1 Gabriela Caruso RN RN mb9 Sahra Sosa RN
--- NOTE | 2022-07-18 12:20 | EDPHYS ---
Physician Documentation [facility] Name: Marc Sanches Jr Age: 67 yrs Sex: Male : 1955 Arrival Date: 07/18/2022 Time: 10:25 Bed 3 Private MD: ED Physician Zoran Cox HPI: 07/18 12:07 This 67 yrs old Male presents to ER via EMS with complaints of syncope, samy dyspnea, weak. 12:07 The patient has shortness of breath at rest. Onset: The symptoms/episode began/occurred samy just prior to arrival. Duration: The symptoms are continuous, but are steadily getting better. The patient's shortness of breath is aggravated by talking, walking. The patient presents with trouble concentrating. Possible causes: CVA or TIA, head injury, low blood sugar, sepsis. The patient has experienced syncope. Onset: The symptoms/episode began/occurred just prior to arrival. Duration: The patient has had multiple episodes, that last 20 second(s). Associated signs and symptoms: Pertinent positives: productive cough, dizziness. Historical: - Allergies: 10:30 PENICILLINS; mb9 - PMHx: 10:30 Diabetes - IDDM; High Cholesterol; Hypertension; Chronic obstructive lung disease; mb9 - Immunization history:: Adult Immunizations up to date. - Social history:: Smoking status: Patient reports the use of cigarette tobacco products, 1-2 a day. - Family history:: not pertinent. ROS: 12:07 Eyes: Negative for injury, pain, redness, and discharge, ENT: Negative for injury, samy pain, and discharge, Neck: Negative for injury, pain, and swelling, Cardiovascular: Negative for chest pain, palpitations, and edema, Abdomen/GI: Negative for abdominal pain, nausea, vomiting, diarrhea, and constipation, Back: Negative for injury and pain, : Negative for injury, bleeding, discharge, and swelling, MS/Extremity: Negative for injury and deformity, Skin: Negative for injury, rash, and discoloration, Psych: Negative for depression, anxiety, suicide ideation, homicidal ideation, and hallucinations, Allergy/Immunology: Negative for hives, rash, and allergies, Endocrine: Negative for neck swelling, polydipsia, polyuria, polyphagia, and marked weight changes, Hematologic/Lymphatic: Negative for swollen nodes, abnormal bleeding, and unusual bruising. 12:07 Constitutional: Positive for fatigue, malaise. Exam: 12:07 Constitutional: This is a well developed, well nourished patient who is awake, alert, samy and in no acute distress. Head/Face: Normocephalic, atraumatic. Eyes: Pupils equal round and reactive to light, extra-ocular motions intact. Lids and lashes normal. Conjunctiva and sclera are non-icteric and not injected. Cornea within normal limits. Periorbital areas with no swelling, redness, or edema. ENT: Nares patent. No nasal discharge, no septal abnormalities noted. Tympanic membranes are normal and external auditory canals are clear. Oropharynx with no redness, swelling, or masses, exudates, or evidence of obstruction, uvula midline. Mucous membranes moist. Neck: Trachea midline, no thyromegaly or masses palpated, and no cervical lymphadenopathy. Supple, full range of motion without nuchal rigidity, or vertebral point tenderness. No Meningismus. Chest/axilla: Normal chest wall appearance and motion. Nontender with no deformity. No lesions are appreciated. Cardiovascular: Regular rate and rhythm with a normal S1 and S2. No gallops, murmurs, or rubs. Normal PMI, no JVD. No pulse deficits. Respiratory: Lungs have equal breath sounds bilaterally, clear to auscultation and percussion. No rales, rhonchi or wheezes noted. No increased work of breathing, no retractions or nasal flaring. Abdomen/GI: Soft, non-tender, with normal bowel sounds. No distension or tympany. No guarding or rebound. No evidence of tenderness throughout. Back: No spinal tenderness. No costovertebral tenderness. Full range of motion. Male : Normal genitalia with no discharge or lesions. MS/ Extremity: Pulses equal, no cyanosis. Neurovascular intact. Full, normal range of motion. Neuro: Awake and alert, GCS 15, oriented to person, place, time, and situation. Cranial nerves II-XII grossly intact. Motor strength 5/5 in all extremities. Sensory grossly intact. Cerebellar exam normal. Normal gait. Psych: Awake, alert, with orientation to person, place and time. Behavior, mood, and affect are within normal limits. 12:07 Musculoskeletal/extremity: DVT Exam: No signs of deep vein thrombosis. no pain, no swelling, no tenderness, negative Homans' sign noted on exam, no appreciated bluish discoloration, no erythema, no increased warmth. 12:07 Skin: Appearance: Color: mandeep, Temperature: normal temperature, Moisture: normal moisture, petechiae, not noted, ecchymosis, not noted. 12:26 ECG was reviewed by the Attending Physician. [facility] Vital Signs: 10:25 BP 117 / 75; Pulse 83; Resp 22; Temp 98.4(O); Pulse Ox 94% on 6 lpm NC; Weight 112.49 mb9 kg (R); Height 5 ft. 10 in. (177.80 cm); Pain 0/10; 10:51 BP 159 / 142; Pulse 41; Resp 22; Pulse Ox 94% on 15% Non-rebreather mask; mb9 11:37 BP 152 / 107; Pulse 92; Resp 25; Pulse Ox 98% on Non-rebreather mask; ld1 11:50 BP 118 / 56; Pulse 85; Resp 18; Pulse Ox 100% on 15% Non-rebreather mask; ld1 12:10 BP 145 / 87; Pulse 90; Resp 21; Pulse Ox 100% on Non-rebreather mask; ld1 12:33 BP 91 / 67; Pulse 89; Resp 26; Pulse Ox 100% on Non-rebreather mask; ld1 10:25 Body Mass Index 35.58 (112.49 kg, 177.80 cm) mb9 NIH Stroke Scale Scores: 10:25 NIHSS Score: 0 mb9 12:07 NIHSS Score: 0 samy Clarissa Coma Score: 12:07 Eye Response: spontaneous(4). Verbal Response: oriented(5). Motor Response: obeys samy commands(6). Total: 15. MDM: 10:31 Patient medically screened. samy 12:19 Differential diagnosis: Anemia Anxiety Reaction asthma, CHF exacerbation, pneumonia, samy Pneumothorax pulmonary edema, Pulmonary Embolism reactive airway disease, Sepsis Unstable Angina. Antibiotic administration: Not indicated. Differential Diagnosis: aortic aneurysm, cardiac arrhythmia, cerebrovascular accident, GI bleed, sepsis, vasovagal episode, electrolyte abnormality, hypoglycemia, intracranial bleed, pneumonia. Immunization status: Pneumococcal vaccine: within last 5 years. Influenza vaccine: within last 5 years. Data reviewed: vital signs, nurses notes, EMS record, lab test result(s), EKG, radiologic studies, CT scan, doppler, plain films. Consideration of Admission/Observation Patient was admitted/placed on observation. Escalation of care including admission/observation considered. I considered the following discharge prescriptions or medication management in the emergency department Medications were administered in the Emergency Department. See MAR. Discussion of test interpretation with radiology: I had a discussion with radiology regarding a test interpretation. massive pe. Test considered but Not performed: MRI: chest. Historians other than the Patient: Daughter/Son: . Care significantly affected by the following chronic conditions: Diabetes, Hypertension, Chronic Obstructive Pulmonary Disease. 12:24 ED course: dr femi salomon with tpa 100 mg over 2 hrs, knows about colonoscope, polyp samy removal last week, off plavix 2 weeks. 07/18 10:34 Order name: Basic Metabolic Panel 07/18 10:34 Order name: CBC with Diff [facility] 07/18 10:34 Order name: LFT's 07/18 10:34 Order name: Magnesium 07/18 10:34 Order name: NT PRO-BNP 07/18 10:34 Order name: PT-INR 07/18 10:34 Order name: Troponin HS 07/18 10:34 Order name: Blood Culture Adult (2) 07/18 10:34 Order name: Lactate w/ 2H reflex if indic. 07/18 10:34 Order name: COVID-19/FLU A+B [facility] 07/18 10:34 Order name: Urine Culture 07/18 10:34 Order name: Type And Screen 07/18 10:34 Order name: ABG 07/18 10:34 Order name: Lipase 07/18 10:34 Order name: XRAY Chest (1 view) 07/18 10:34 Order name: BIPAP [facility] 07/18 11:06 Order name: Glucose, Ancillary Testing; Complete Time: 11:20 EDMS 07/18 11:15 Order name: Protime (+INR); Complete Time: 11:20 EDMS 07/18 11:20 Order name: AMMONIA [facility] 07/18 11:20 Order name: CBC with Automated Diff 07/18 11:21 Order name: ABG Arterial Blood Gas; Complete Time: 11:42 EDMS 07/18 11:49 Order name: COVID-19/FLU A+B; Complete Time: 11:55 EDMS 07/18 12:28 Order name: Ammonia; Complete Time: 12:31 [facility] 07/18 12:53 Order name: Basic Metabolic Panel; Complete Time: 12:55 [facility] 07/18 12:53 Order name: Liver (Hepatic) Function; Complete Time: 12:55 [facility] 07/18 12:53 Order name: Troponin High Sensitivity; Complete Time: 12:55 [facility] 07/18 12:53 Order name: NT PRO-BNP; Complete Time: 12:55 [facility] 07/18 12:53 Order name: Magnesium; Complete Time: 12:55 [facility] 07/18 12:53 Order name: Lipase; Complete Time: 12:55 [facility] 07/18 10:34 Order name: EKG; Complete Time: 10:35 [facility] 07/18 10:34 Order name: Cardiac monitoring; Complete Time: 11:05 [facility] 07/18 10:34 Order name: EKG - Nurse/Tech; Complete Time: 11:05 [facility] 07/18 10:34 Order name: IV Saline Lock; Complete Time: 11: [facility] 07/18 10:34 Order name: Labs collected and sent; Complete Time: 11: [facility] 07/18 10:34 Order name: O2 Per Protocol; Complete Time: 11:05 [facility] 07/18 10:34 Order name: O2 Sat Monitoring; Complete Time: 11:05 [facility] 07/18 10:34 Order name: Urine Dipstick-Ancillary (obtain specimen); Complete Time: 11:05 [facility] 07/18 10:34 Order name: Garcia; Complete Time: 11:05 [facility] 07/18 10:34 Order name: IV Saline Lock - Large Bore; Complete Time: 11:04 [facility] 07/18 11:03 Order name: CT Head C Spine [facility] 07/18 11:03 Order name: CT Chest For PE Angio [facility] 07/18 11:03 Order name: CT Abd/Pelvis - IV Contrast Only [facility] 07/18 11:03 Order name: US Extremity Venous W Compression Arnoldo [facility] 07/18 11:54 Order name: Labs - recollect needed: recollect the blood/ hemolyzed; Complete Time: eb 12:17 07/18 11:56 Order name: CT; Complete Time: 12:02 [facility] 07/18 12:02 Order name: Misc. Order: 100 mg over 2 hours; Complete Time: 12:24 [facility] 07/18 12:03 Order name: IV Saline Lock - Large Bore; Complete Time: 12:03 samy 07/18 12:06 Order name: CT; Complete Time: 12:31 EDMS 07/18 12:08 Order name: CT; Complete Time: 12:31 EDMS 07/18 12:22 Order name: RAD; Complete Time: 12:31 EDMS EC:26 Rate is 60 beats/min. Rhythm is regular. QRS [place] is Normal. WA interval is normal. QRS samy interval is normal. QT interval is normal. No Q waves. T waves are Normal. No ST changes noted. Clinical impression: NSR w/ Non-specific ST/T Changes and No evidence of ischemia. Interpreted by me. Reviewed by me. Administered Medications: 11:48 Drug: NS 0.9% 1000 ml Route: IV; Rate: 1 bolus; Site: right wrist; ld1 11:49 Drug: Pepcid (famotidine) 20 mg Route: IVP; Site: right hand; ld1 11:50 Drug: Solu-CORTEF (hyrdoCORTISONE) 100 mg Route: IVP; Site: right hand; ld1 11:54 Not Given (Pt blood pressure loww): niCARdipine 5 mg/hr IV at per protocol See ld1 Administration Instructions; (Standard concentration 25 mg / 250 mL NS); Recommended max rate 15 mg/hr; Titrate 2.5 mg/hr as often as every 15 minutes to achieve goal (see titration policy); Goal parameter SBP less than 160 mmHg 12:07 Not Given (Duplicate Order): Meropenem 1 grams IV at per protocol once; (mix in NS 100 samy mL) 12:20 Drug: ACTIvase (alteplase) {Co-Signature: ss (Sahra Sosa RN).} Route: IV ld1 Thrombolytics; Rate: calculated rate; Infused Over: 60 mins; 12:24 Drug: ProTONIX (pantoprazole) 40 mg Route: IVP; Site: right antecubital; ld1 12:24 Drug: NS 0.9% 1000 ml Route: IV; Rate: 1 bolus; Site: right antecubital; ld1 Disposition: 12:22 Critical Care:. samy Disposition Summary: 07/18/22 12:19 Transfer Ordered Transfer Location: [facility] samy Reason: Higher level of care samy Condition: Critical samy Problem: new samy Symptoms: have improved samy Accepting Physician: Dr. Maria Luisa Adams [facility](07/18/22 13:13) ld1 Diagnosis - Other pulmonary embolism with acute cor pulmonale - saddle samy - Syncope Near samy - Anemia, unspecified samy - Dyspnea samy Forms: - Medication Reconciliation Form samy - SBAR form samy Critical care time excluding procedures: 12:22 Critical care time: Bedside Care: 50 minutes, Consultation: 25 minutes, Family samy Intervention: 10 minutes. Total time: 85 minutes NIH Stroke Scale - NIH Stroke Score Date: 07/18/2022 Time: 10:25 Total Score = 0 1a. Level of Consciousness (LOC) - 0(Alert) 1b. Level of Consciousness (LOC) (Month \T\ Age) - 0(Both) 1c. LOC Commands (Open \T\ Closes Eyes/Agriscience Teacher) - 0(Both) 2. Best Gaze (Lateral Gaze Paresis) - 0(Normal) 3. Visual Field Loss - 0(No visual loss) 4. Facial Palsy - 0(Normal) 5a. Left Arm: Motor (10-second hold) - 0(No drift) 5b. Right Arm: Motor (10-second hold) - 0(No drift) 6a. Left Leg: Motor (5-second hold - always test supine) - 0(No drift) 6b. Right Leg: Motor (5-second hold - always test supine) - 0(No drift) 7. Limb Ataxia (finger/nose \T\ heel/haro - test with eyes open) - 0(Absent) 8. Sensory Loss (pinprick arms/legs/face) - 0(Normal) 9. Best Language: Aphasia (description/naming/reading) - 0(No aphasia) 10. Dysarthria (speech clarity - read or repeat words) - 0(Normal) 11. Extinction and Inattention (visual/tactile/auditory/spatial/personal) - 0(No abnormality) Initials: mb9 NIH Stroke Scale - NIH Stroke Score Date: 07/18/2022 Time: 12:07 Total Score = 0 1a. Level of Consciousness (LOC) - 0(Alert) 1b. Level of Consciousness (LOC) (Month \T\ Age) - 0(Both) 1c. LOC Commands (Open \T\ Closes Eyes/Agriscience Teacher) - 0(Both) 2. Best Gaze (Lateral Gaze Paresis) - 0(Normal) 3. Visual Field Loss - 0(No visual loss) 4. Facial Palsy - 0(Normal) 5a. Left Arm: Motor (10-second hold) - 0(No drift) 5b. Right Arm: Motor (10-second hold) - 0(No drift) 6a. Left Leg: Motor (5-second hold - always test supine) - 0(No drift) 6b. Right Leg: Motor (5-second hold - always test supine) - 0(No drift) 7. Limb Ataxia (finger/nose \T\ heel/haro - test with eyes open) - 0(Absent) 8. Sensory Loss (pinprick arms/legs/face) - 0(Normal) 9. Best Language: Aphasia (description/naming/reading) - 0(No aphasia) 10. Dysarthria (speech clarity - read or repeat words) - 0(Normal) 11. Extinction and Inattention (visual/tactile/auditory/spatial/personal) - 0(No abnormality) Initials: samy Signatures: Dispatcher [employer] EDZoran Clark MD MD cha Smirch, Shelby, RN RN ss Irlanda Canada Lauren RN RN ld1 Gabriela Caruso RN RN mb9 Sahra Sosa RN ss Corrections: (The following items were deleted from the chart) 12:48 12:19 to evens palacios 13:13 12:48 Dr. Maria Luisa Adams [facility] eb ld1
--- NOTE | 2022-07-18 12:22 | RAD REPORT ---
EXAM DESCRIPTION: Ariane Single View07/18/2022 11:55 am CLINICAL HISTORY: Cough COMPARISON: 2020 FINDINGS: The lungs appear clear of acute infiltrate. The heart is moderately enlarged IMPRESSION: No acute abnormalities displayed
[2022-07-18] MEDS ORDERED: PANTOPRAZOLE 40 MG INJ ONE (12:23)
[2022-07-18 12:53] LABS: Albumin 2.4 g/dL (3.4-5.0); Bilirubin Direct 0.7 mg/dL (0-0.2); Bilirubin Total 1.2 mg/dL (0.2-1.0); Potassium 3.3 mmol/L (3.5-5.1); Troponin High Sensitivity 45.7 pg/mL (<58.9)
[2022-07-18 13:17] VITALS: TEMP 98.4
[2022-07-18 13:22] VITALS: O2SAT 100
[2022-07-18 13:22] LABS: RBC Red Blood Cell Count 5.31 M/uL (4.33-5.43)
[2022-07-18 13:23] LABS: Absolute Lymphocytes (CBC) 2.4 K/uL (0.7-4.9); MCV 90.3 fL (80-100); MPV 9.3 fL (7.6-11.3)
[2022-07-18 13:24] VITALS: BP 91/67
--- NOTE | 2022-07-18 16:37 | EKG ---
Test Date: 2022-07-18 Test Time: 10:57:15 [employer] Repairer: ANNMARIE MEASUREMENT RESULTS: Intervals: Rate: 60 FL: 168 QRSD: 92 QT: 418 QTc: 418 [place]: P: 72 FL: 168 QRS: 60 T: 66 INTERPRETIVE STATEMENTS: Sinus rhythm with marked sinus arrhythmia ST abnormality, possible digitalis effect Abnormal ECG Compared to ECG 10/25/2020 21:40:08 ST (T wave) deviation now present Atrial premature complex(es) no longer present Electronically Signed On 07-18-22 16:36:13 CALL OR CONTACT CENTRE MANAGER by Thad Haque
[2022-07-18 17:00] LABS: Blood Morphology Comment NOT SEEN (NOT SEEN); Platelet Estimate ADEQ
== END 2022-07-18 13:13 | disposition short-term general hospital (02) ==
LOC: ER 10:16
DX: I26.02 Saddle embolus of pulmonary artery with acute cor pulmonale (principal); D64.9 Anemia, unspecified; R06.00 Dyspnea, unspecified; J44.9 Chronic obstructive pulmonary disease, unspecified; E11.9 Type 2 diabetes mellitus without complications; Z88.0 Allergy status to penicillin; Z20.822 Contact with and (suspected) exposure to COVID-19; Z72.0 Tobacco use
CPT/HCPCS: 92977; 93005; 87040 ×2; 87088; 85025; 87086; 80048; 36415; 82140; 83735; 85610; 82947; 80076; 84484; 83690; 83880; 0240U; 70450; 72125; 71275; 74177; 71045; 82805; 51702; 99285; Q9967; J2997; C9113; J2185; J7030 ×2; J1720

== ENCOUNTER 2024-01-06 18:22 | Emergency (ER) | payer OTHER, MEDICARE ==
[2024-01-06] MEDS ORDERED: NA CHLORIDE 0.9% 1,000 ML ONE (19:10)
[2024-01-06 19:34] LABS: Absolute Lymphocytes (CBC) 1.2 K/uL (0.7-4.9); Absolute Neutrophil 8.6 K/uL (1.8-8.0); Basophils % 0.2 % (0-1.3); Hematocrit 32.7 % (39.6-49.0); Hemoglobin 10.2 g/dL (13.6-17.9); MCH 21.9 pg (27.0-35.0); MCHC 31.3 g/dL (32.0-36.0); MPV 8.2 fL (7.6-11.3); Neutrophils % 79.8 % (41.7-73.7); Nucleated Red Blood Cells % 0.1 % (0-0); Platelets 283 thou/uL (152-406); RBC Red Blood Cell Count 4.66 M/uL (4.33-5.43); Red Cell Distribution Width 19.8 % (12.1-15.2)
[2024-01-06 19:41] LABS: PT Prothrombin Time 17.4 SECONDS (9.4-12.5); Protime INR 1.57
[2024-01-06 19:51] LABS: Blood Morphology Comment NOTED (NOT SEEN); Hypochromasia 1+; Microcytosis 1+; Platelet Estimate ADEQ; White Blood Cell Scan OK (OK)
--- NOTE | 2024-01-06 19:55 | RAD REPORT ---
EXAM DESCRIPTION: CT - Head C Spine Cap Wo Con - 01/06/2024 7:28 pm CLINICAL HISTORY: Head and neck injury with chest and abdominal pain status post fall TECHNIQUE: Computed axial tomography of head, neck, chest, abdomen and pelvis obtained. IV and oral contrast not requested. Coronal and sagittal reconstruction performed. All CT scans are performed using dose optimization technique as appropriate and may include automated exposure control or mA/KV adjustment according to patient size. COMPARISON: 2022 FINDINGS: An intracranial bleed is not seen. The ventricles are normal in caliber. An extra-axial fluid collection is not noted. Moderate low-density within periventricular, deep and subcortical white matter may represent ischemic changes secondary to small vessel disease. Fluid within the sinuses/mastoids is not seen. A cervical fracture is not seen. No dislocation is noted. Postsurgical changes cervical spine. Mild posterior subluxation C3 on C4. Mild anterior subluxation C 4 on C5-C5 and on C6. These are all chronic. The evaluation of mediastinum, irineo, vessels, solid organs and bowel are limited secondary to the lac k of contrast administration. A mediastinal hematoma is not noted. A pleural effusion is not seen. A lung contusion is not present. The liver,spleen, pancreas, adrenals,kidneys and bladder do not demonstrate an acute traumatic injury Mild bilateral hydronephrosis and hydroureter. Bladder is distended Prostate gland mildly enlarged. Small to moderate bilateral inguinal hernias contain fat IMPRESSION: No acute intracranial abnormality is seen. A cervical fracture is not visualized. If the patient continues to have symptoms to suggest intracran ial/spinal cord pathology MRI be recommended No acute traumatic abnormality involving the chest, abdomen or pelvis Mild bilateral hydronephrosis may secondary to the bladder distention
--- NOTE | 2024-01-06 20:01 | RAD REPORT ---
EXAM DESCRIPTION: Ariane Single View01/06/2024 7:13 pm CLINICAL HISTORY: Cough COMPARISON: November 2023 FINDINGS: The lungs appear clear of acute infiltrate. The heart is normal size IMPRESSION: No acute abnormalities displayed
[2024-01-06 20:03] LABS: ALT/SGPT 25 U/L (16-61); AST/SGOT 29 U/L (15-37); Albumin 3.1 g/dL (3.4-5.0); Albumin/Globulin Ratio 0.9 (1.1-1.8); Alkaline Phosphatase 41 U/L (45-117); Anion Gap 11.5 mEq/L (5.0-15.0); BUN Blood Urea Nitrogen 51 mg/dL (7-18); Bicarbonate 24 mEq/L (21-32); Bilirubin Total 0.3 mg/dL (0.2-1.0); Globulin 3.6 g/dL (2.3-3.5); Glomerular Filtration Rate 43 ml/min (=/>90); Glucose Level 130 mg/dL (74-106); Lipase 27 U/L (13-75); Magnesium 2.2 mg/dL (1.6-2.4); NT PRO-BNP 308 pg/mL (<125); Potassium 3.5 mEq/L (3.5-5.1); Protein, Total 6.7 g/dL (6.4-8.2); Sodium Level 142 mEq/L (136-145); Troponin High Sensitivity 12.4 pg/mL (<58.9)
[2024-01-06 20:07] LABS: Bilirubin Direct < 0.2 mg/dL (0-0.2); Bilirubin Indirect, Calculated 0.1 mg/dL (0.2-0.8)
--- NOTE | 2024-01-06 20:22 | ER ---
Nurse's Notes [facility] Name: Marc Sanches Jr Age: 68 yrs Sex: Male : 1955 Arrival Date: 01/06/2024 Time: 18:22 Bed 5 Private MD: Diagnosis: Fall on same level, unspecified;Diarrhea, unspecified;Adverse effect of other drugs, medicaments and biological substances-LAXATIVES, OVERUSE;Constipation Presentation: 01/05 18:36 Chief complaint: EMS states: patient fell in shower, did not hit head or loose ko1 consciousness, does take blood thinners. Took 5 "womens laxatives" yesterday and has been having multiple bowel movements. Coronavirus screen: At this time, the client does not indicate any symptoms associated with coronavirus-19. Ebola Screen: No symptoms or risks identified at this time. Initial Sepsis Screen: Does the patient meet any 2 criteria? No. Patient's initial sepsis screen is negative. Does the patient have a suspected source of infection? No. Patient's initial sepsis screen is negative. Risk Assessment: Do you want to hurt yourself or someone else? Patient reports no desire to harm self or others. Onset of symptoms was January 06, 2024. Care prior to arrival: Medication(s) given: Normal saline infusion, 1000 mL, IV initiated. 20 GA, in the right forearm, Glucose check: 151. Mechanism of Injury: Fall from standing position. 18:36 Method Of Arrival: EMS: [facility] ko1 18:36 Acuity: DEYSI 3 ko1 Triage Assessment: 18:38 General: Appears in no apparent distress. Behavior is calm, cooperative, appropriate ko1 for age. Pain: Denies pain. Historical: - Allergies: 18:38 PENICILLINS; ko1 - PMHx: 18:38 Chronic obstructive lung disease; Diabetes - IDDM; High Cholesterol; Hypertension; ko1 Cerebrovascular accident; pulmonary embolus; - PSHx: 18:38 Unable to Obtain; ko1 - Immunization history:: Adult Immunizations up to date. - Infectious Disease History:: Denies. - Social history:: Smoking status: Patient denies any tobacco usage or history of. Screenin:50 [facility] ED Fall Risk Assessment (Adult) History of falling in the last 3 months, ko1 including since admission Yes- single mechanical fall (1 pt) Confusion or Disorientation No (0 pts) Intoxicated or Sedated No (0 pts) Impaired Gait No (0 pts) Mobility Assist Device Used No (0 pt) Altered Elimination No (0 pt) Score/Fall Risk Level 0 - 2 = Low Risk Oriented to surroundings, Maintained a safe environment, Educated pt \\T\\ family on fall prevention, incl call for assistance when getting out of bed, Assessed \\T\\ reinforced patient's understanding of fall precautions, Provided non-skid footwear, Hourly rounding (assess needs \\T\\ fall precautionary measures) done. Abuse screen: Denies threats or abuse. Denies injuries from another. Nutritional screening: No deficits noted. Tuberculosis screening: No symptoms or risk factors identified. Assessment: 18:50 Reassessment: see triage assessment. ko1 19:13 General: Appears in no apparent distress. comfortable, Behavior is calm, cooperative, bm8 appropriate for age. Pain: Complains of pain in right lateral anterior chest Pain currently is 1 out of 10 on a pain scale. Neuro: No deficits noted. Level of Consciousness is awake, alert, obeys commands, Oriented to person, place, time, situation, Appropriate for age. Cardiovascular: No deficits noted. Heart tones S1 S2 Capillary refill < 3 seconds Patient's skin is warm and dry. Respiratory: Airway is patent Respiratory effort is even, unlabored, Respiratory pattern is regular, symmetrical, Breath sounds are clear bilaterally. GI: No signs and/or symptoms were reported involving the gastrointestinal system. : No signs and/or symptoms were reported regarding the genitourinary system. EENT: No signs and/or symptoms were reported regarding the EENT system. Derm: No signs and/or symptoms reported regarding the dermatologic system. Musculoskeletal: Capillary refill < 3 seconds, in bilateral fingers. toes. Range of motion: intact in all extremities, Reports pain in diaphragm. 20:41 Reassessment: Patient appears in no apparent distress at this time. Patient and/or bm8 family updated on plan of care and expected duration. Pain level reassessed. Patient is alert, oriented x 3, equal unlabored respirations, skin warm/dry/pink. Patient denies pain at this time. Patient states feeling better. Patient states symptoms have improved. Vital Signs: 18:38 BP 123 / 71; Pulse 81; Resp 18; Temp 98; Pulse Ox 97% on R/A; ko1 19:13 BP 135 / 85; Pulse 91; Resp 18; Temp 98; Pulse Ox 95% on R/A; Pain 1/10; bm8 20:41 BP 140 / 78; Pulse 97; Resp 16; Temp 98; Pulse Ox 99% ; Pain 0/10; bm8 19:13 Pain Scale: Adult bm8 20:41 Pain Scale: Adult bm8 Clarissa Coma Score: 19:13 Eye Response: spontaneous(4). Motor Response: obeys commands(6). Verbal Response: bm8 oriented(5). Total: 15. 20:41 Eye Response: spontaneous(4). Motor Response: obeys commands(6). Verbal Response: bm8 oriented(5). Total: 15. ED Course: 18:35 Patient arrived in ED. ko1 18:36 Namrata Stanley, SAVANNA is Primary Nurse. ko1 18:38 Triage completed. ko1 18:38 Arm band placed on right wrist. Patient placed in an exam room, on a stretcher, on ko1 academic affairs specialist, on pulse oximetry, Patient notified of wait time. 18:49 Zoran Cox MD is Attending Physician. [facility] 18:50 Patient has correct armband on for positive identification. Allergy band placed. Bed in ko1 low position. Call light in reach. Side rails up X2. Provided Education on: call light. Client placed on continuous cardiac and pulse oximetry monitoring. NIBP monitoring applied. screener and blender operator on. Door closed. Noise minimized. Lights dimmed. Warm blanket given. Pillow given. Assisted with urinal. 18:50 Maintain EMS IV. Dressing intact. Good blood return noted. Site clean \\T\\ dry. Gauge \\T\\ ko 1 site: 20g right FA. Flushed with 10 mL NS. 19:13 No provider procedures requiring assistance completed. IV is patent, with fluids bm8 infusing freely, with good blood return, Flushed right forearm with 5 ml normal saline. 19:13 Initial lab(s) drawn, by me, sent to lab. bm8 19:15 XRAY Chest (1 view) In Process Unspecified. EDMS 19:30 CT Traumagram (Head C Spine CAP wo con) In Process Unspecified. EDMS 20:21 Maria D Del Angel MD is Referral Physician. bo1 20:41 Provided Education on: post er care. bm8 20:41 IV discontinued, intact, bleeding controlled, No redness/swelling at site. Pressure bm8 dressing applied. Administered Medications: :13 Drug: NS 0.9% IV 1000 ml IV at 1 bolus Per protocol; 1000 mL bolus Route: IV; Rate: 1 bm8 bolus; Site: right forearm; 20:41 Follow up: Response: No adverse reaction; IV Status: Completed infusion; IV Intake: bm8 1000ml Medication: 19:13 VIS not applicable for this client. bm8 Intake: 20:41 IV: 1000ml; Total: 1000ml. bm8 Outcome: 20:21 Discharge ordered by MD. bo1 20:41 Discharged to home via wheelchair, bm8 20:41 Condition: stable 20:41 Discharge instructions given to patient, family, Instructed on discharge instructions, follow up and referral plans. no drinking with medication, no driving heavy equipment, medication usage, Demonstrated understanding of instructions, follow-up care, medications, Prescriptions given X 1, 20:43 Patient left the ED. bm8 Signatures: Dispatcher [employer] EDZoran Clark MD MD cha Oliver, Kathy, RN RN ko1 Krystian Gamboa MD MD bo1 Edison Phoenix, RN RN bm8
--- NOTE | 2024-01-06 20:22 | EDPHYS ---
Physician Documentation [facility] Name: Marc Sanches Jr Age: 68 yrs Sex: Male : 1955 Arrival Date: 01/06/2024 Time: 18:22 Bed 5 Private MD: ED Physician Zoran Cox HPI: 01/05 18:53 This 68 yrs old Male presents to ER via EMS with complaints of Fall Injury. samy 18:53 Details of fall: The patient fell from an upright position, while standing. Onset: The samy symptoms/episode began/occurred today. Associated injuries: The patient sustained injury to the head, neck injury, upper back injury, injury to the low back. Severity of symptoms: At their worst the symptoms were mild, in the emergency department the symptoms are unchanged. Historical: - Allergies: 18:38 PENICILLINS; ko1 - PMHx: 18:38 Chronic obstructive lung disease; Diabetes - IDDM; High Cholesterol; Hypertension; ko1 Cerebrovascular accident; pulmonary embolus; - PSHx: 18:38 Unable to Obtain; ko1 - Immunization history:: Adult Immunizations up to date. - Infectious Disease History:: Denies. - Social history:: Smoking status: Patient denies any tobacco usage or history of. ROS: 18:54 Constitutional: Negative for fever, chills, and weight loss, Eyes: Negative for injury, samy pain, redness, and discharge, ENT: Negative for injury, pain, and discharge, Neck: Negative for injury, pain, and swelling, Cardiovascular: Negative for chest pain, palpitations, and edema, Respiratory: Negative for shortness of breath, cough, wheezing, and pleuritic chest pain, Back: Negative for injury and pain, : Negative for injury, bleeding, discharge, and swelling, MS/Extremity: Negative for injury and deformity, Skin: Negative for injury, rash, and discoloration, Neuro: Negative for headache, weakness, numbness, tingling, and seizure, Psych: Negative for depression, anxiety, suicide ideation, homicidal ideation, and hallucinations, Allergy/Immunology: Negative for hives, rash, and allergies, Endocrine: Negative for neck swelling, polydipsia, polyuria, polyphagia, and marked weight changes, Hematologic/Lymphatic: Negative for swollen nodes, abnormal bleeding, and unusual bruising, 18:54 Abdomen/GI: Positive for abdominal pain, diarrhea, abdominal cramps, 18:54 Neuro: Positive for weakness, Exam: 18:54 Constitutional: This is a well developed, well nourished patient who is awake, alert, samy and in no acute distress. Head/Face: Normocephalic, atraumatic. Eyes: Pupils equal round and reactive to light, extra-ocular motions intact. Lids and lashes normal. Conjunctiva and sclera are non-icteric and not injected. Cornea within normal limits. Periorbital areas with no swelling, redness, or edema. ENT: Nares patent. No nasal discharge, no septal abnormalities noted. Tympanic membranes are normal and external auditory canals are clear. Oropharynx with no redness, swelling, or masses, exudates, or evidence of obstruction, uvula midline. Mucous membranes moist. Neck: Trachea midline, no thyromegaly or masses palpated, and no cervical lymphadenopathy. Supple, full range of motion without nuchal rigidity, or vertebral point tenderness. No Meningismus. Chest/axilla: Normal chest wall appearance and motion. Nontender with no deformity. No lesions are appreciated. Cardiovascular: Regular rate and rhythm with a normal S1 and S2. No gallops, murmurs, or rubs. Normal PMI, no JVD. No pulse deficits. Respiratory: Lungs have equal breath sounds bilaterally, clear to auscultation and percussion. No rales, rhonchi or wheezes noted. No increased work of breathing, no retractions or nasal flaring. Abdomen/GI: Soft, non-tender, with normal bowel sounds. No distension or tympany. No guarding or rebound. No evidence of tenderness throughout. Back: No spinal tenderness. No costovertebral tenderness. Full range of motion. Male : Normal genitalia with no discharge or lesions. Skin: Warm, dry with normal turgor. Normal color with no rashes, no lesions, and no evidence of cellulitis. MS/ Extremity: Pulses equal, no cyanosis. Neurovascular intact. Full, normal range of motion. Neuro: Awake and alert, GCS 15, oriented to person, place, time, and situation. Cranial nerves II-XII grossly intact. Motor strength 5/5 in all extremities. Sensory grossly intact. Cerebellar exam normal. Normal gait. Psych: Awake, alert, with orientation to person, place and time. Behavior, mood, and affect are within normal limits. 18:54 Musculoskeletal/extremity: DVT Exam: No signs of deep vein thrombosis. no pain, no swelling, no tenderness, negative Homans' sign noted on exam, no appreciated bluish discoloration, no erythema, no increased warmth, 19:42 ECG was reviewed by the Attending Physician. samy Vital Signs: 18:38 BP 123 / 71; Pulse 81; Resp 18; Temp 98; Pulse Ox 97% on R/A; ko1 19:13 BP 135 / 85; Pulse 91; Resp 18; Temp 98; Pulse Ox 95% on R/A; Pain 1/10; bm8 20:41 BP 140 / 78; Pulse 97; Resp 16; Temp 98; Pulse Ox 99% ; Pain 0/10; bm8 19:13 Pain Scale: Adult bm8 20:41 Pain Scale: Adult bm8 Clarissa Coma Score: 19:13 Eye Response: spontaneous(4). Motor Response: obeys commands(6). Verbal Response: bm8 oriented(5). Total: 15. 20:41 Eye Response: spontaneous(4). Motor Response: obeys commands(6). Verbal Response: bm8 oriented(5). Total: 15. MDM: 18:49 Patient medically screened. samy 18:55 Differential Diagnosis altered mental status, sepsis, flu. Differential diagnosis: samy abrasion, closed head injury, contusion, fracture, multiple trauma. Differential diagnosis: Nonspecific abd pain, gastritis, cholecystitis, viral gastroenteritis, bowel obstruction, Cholelithiasis, diverticulitis, gastritis, gastroesophageal reflux disease, non-specific abd pain, pancreatitis, Peptic Ulcer Disease, Pyelonephritis, Ureterolithiasis, urinary tract infection. Data reviewed: vital signs, nurses notes, lab test result(s), EKG, radiologic studies, CT scan, plain films. Consideration of Admission/Observation Escalation of care including admission/observation considered. I considered the following discharge prescriptions or medication management in the emergency department Medications were administered in the Emergency Department. See MAR. Independent interpretation of the following test(s) in the Emergency Department EKG: See my EKG interpretation above. Test considered but Not performed: Ultrasound NO FAST EXAM. Historians other than the Patient: Spouse/Significant Other: WELL INFORMED. Care significantly affected by the following chronic conditions: Diabetes, Hypertension, Congestive Heart Failure, Obesity, CVA. 20:24 ED course: Pt had taken 5 laxatives, fallen in the bathtub. Received 1 litre of NS. Is bo1 better now. Labs, CT, CXR reviewed. No criteria for obs/admit. Pt will be discharged in improved condition. Pt and spouse w/o questions or objections.. 01/05 18:53 Order name: Basic Metabolic Panel; Complete Time: 20:11 [facility] 01/05 18:53 Order name: CBC with Diff; Complete Time: 20:11 [facility] 01/05 18:53 Order name: LFT's; Complete Time: 20:11 [facility] 01/05 18:53 Order name: Magnesium; Complete Time: 20:11 [facility] 01/05 18:53 Order name: NT PRO-BNP; Complete Time: 20:11 [facility] 01/05 18:53 Order name: PT-INR; Complete Time: 20:11 [facility] 01/05 18:53 Order name: Troponin HS; Complete Time: 20:11 [facility] 01/05 18:53 Order name: Lipase; Complete Time: 20:11 [facility] 01/05 18:53 Order name: Urinalysis w/ reflexes [facility] 01/05 19:37 Order name: CBC Smear Scan; Complete Time: 20:11 [facility] 01/05 18:53 Order name: XRAY Chest (1 view); Complete Time: 20:11 [facility] 01/05 18:53 Order name: CT Traumagram (Head C Spine CAP wo con); Complete Time: 20:11 [facility] 01/05 18:53 Order name: EKG; Complete Time: 18:54 [facility] 01/05 18:53 Order name: Cardiac monitoring; Complete Time: 19:13 [facility] 01/05 18:53 Order name: EKG - Nurse/Tech; Complete Time: 19:44 [facility] 01/05 18:53 Order name: IV Saline Lock; Complete Time: 19:13 [facility] 01/05 18:53 Order name: Labs collected and sent; Complete Time: 19:13 [facility] 01/05 18:53 Order name: O2 Per Protocol; Complete Time: 19:13 [facility] 01/05 18:53 Order name: O2 Sat Monitoring; Complete Time: 19:13 [facility] 01/05 18:53 Order name: PO challenge; Complete Time: 19:13 [facility] EC:42 Rate is 94 beats/min. QRS Cost is Normal. SC interval is normal. QRS interval is samy normal. QT interval is normal. No Q waves. T waves are Normal. No ST changes noted. Clinical impression: NSR w/ Non-specific ST/T Changes and No evidence of ischemia. Interpreted by me. Reviewed by me. Administered Medications: 19:13 Drug: NS 0.9% IV 1000 ml IV at 1 bolus Per protocol; 1000 mL bolus Route: IV; Rate: 1 bm8 bolus; Site: right forearm; 20:41 Follow up: Response: No adverse reaction; IV Status: Completed infusion; IV Intake: bm8 1000ml Disposition Summary: 01/06/24 20:21 Discharge Ordered Notes: Location: Home bo1 Problem: new bo1 Symptoms: have improved bo1 Condition: Fair bo1 Diagnosis - Fall on same level, unspecified bo1 - Diarrhea, unspecified bo1 - Adverse effect of other drugs, medicaments and biological substances - LAXATIVES, bo1 OVERUSE - Constipation bo1 Followup: samy - With: Private Physician - When: 2 - 3 days - Reason: Recheck today's complaints, Continuance of care, Re-evaluation by your physician Followup: samy - With: Maria D Del Angel MD - When: 2 - 3 days - Reason: Recheck today's complaints, Re-evaluation by your physician Discharge Instructions: - Discharge Summary Sheet samy - Food Choices to Help Relieve Diarrhea, Adult samy - Constipation, Adult samy - Diarrhea, Adult samy - Fall Prevention in the Home, Adult samy - Constipation, Adult, [id number] samy - Diarrhea, Adult, [id number] samy - Fall Prevention in the Home, Adult, [id number] samy - Chronic Constipation [facility] Forms: - Medication Reconciliation Form bo1 - Antibiotic Education bo1 - Prescription Opioid Use bo1 - Patient Portal Instructions bo1 - Leadership Thank You Letter bo1 Prescriptions: - ondansetron 4 mg Oral Tablet,disintegrating - take 1 tablet ORAL route every 8-10 hours for 4 days; 16 tablet; Refills: 0, samy Product Selection Permitted Signatures: Dispatcher [employer] Zoran Le MD MD cha Oliver, Kathy, RN RN ko1 Krystian Gamboa MD MD bo1 Edison Phoenix, RN RN bm8
[2024-01-06 20:43] LABS: Specific Gravity 1.017 (1.005-1.030); Sqamous Epithelial <5 /HPF (None Seen); Urine Bacteria <20 /HPF (<20); Urine Bilirubin NEGATIVE (Negative); Urine Blood Negative (Negative); Urine Clarity Clear (Clear); Urine Color Light-Yellow (Yellow); Urine Culture Reflex Order NOT NEEDED; Urine Glucose 4+ (Over) (Negative); Urine Ketones NEGATIVE (Negative); Urine Microscopic Reflex YN ORDER UMIC; Urine Mucus Slight /HPF (None Seen); Urine Nitrite NEGATIVE (Negative); Urine Protein 1+ (Negative); Urine RBC <5 /HPF (None Seen); Urine Urobilinogen Normal (Normal); Urine WBC <5 /HPF (<5); Urine pH 5.5 (5.0-7.0)
[2024-01-06 20:46] VITALS: TEMP 98
[2024-01-06 20:49] VITALS: BP 140/78; O2SAT 99
--- NOTE | 2024-01-08 13:49 | EKG ---
Test Date: 2024-01-06 Test Time: 19:38:28 Permastone Installer: WALDEMAR MEASUREMENT RESULTS: Intervals: Rate: 94 OH: 194 QRSD: 86 QT: 378 QTc: 472 [place]: P: 86 OH: 194 QRS: 49 T: 66 INTERPRETIVE STATEMENTS: Normal sinus rhythm Normal ECG Compared to ECG 12/13/2023 12:08:17 No significant changes Electronically Signed On 01-08-24 13:45:14 CDT by Thad Haque
== END 2024-01-06 20:43 | disposition home or self-care (01) ==
LOC: ER 18:22
DX: R19.7 Diarrhea, unspecified (principal); T47.4X5A Adverse effect of other laxatives, initial encounter; W18.30XA Fall on same level, unspecified, initial encounter; K59.00 Constipation, unspecified; R53.1 Weakness
CPT/HCPCS: 93005; 85025; 81001; 80048; 36415; 83735; 85610; 80076; 84484; 83690; 83880; 70450; 71250; 72125; 71045; 96360; 99285; J7030

== ENCOUNTER 2024-02-22 16:41 | Inpatient (IN) | payer OTHER, MEDICARE ==
[2024-02-22 17:49] VITALS: BMI 26.6
[2024-02-22] MEDS ORDERED: GLUCAGON 1 MG/VIAL IM PRN (18:22)
[2024-02-22] MEDS ORDERED: D10W 125 ML IV PRN (18:22)
--- NOTE | 2024-02-22 18:46 | RAD REPORT ---
EXAMINATION: ONE VIEW CHEST XR CLINICAL INDICATION: new admission, new onset weakness, hypotension TECHNIQUE: Frontal chest projection is submitted. Examination is limited by patient positioning and t echnique. COMPARISON: 01/06/2024 FINDINGS: The lungs are well inflated and clear. The heart is normal in size. No displaced fractures identified . IMPRESSION: No acute intrathoracic abnormalities.
[2024-02-22 19:33] LABS: Absolute Eosinophils 0.2 K/uL (0-0.5); Absolute Lymphocytes (CBC) 1.1 K/uL (0.7-4.9); Absolute Monocytes 0.8 K/uL (0.1-1.3); Absolute Neutrophil 5.9 K/uL (1.8-8.0); Basophils % 0.3 % (0-1.3); Eosinophils % 2.5 % (0-4.4); Hematocrit 39.8 % (39.6-49.0); Hemoglobin 12.4 g/dL (13.6-17.9); Lymphocytes % 13.3 % (15.3-44.8); MCH 22.2 pg (27.0-35.0); MCHC 31.1 g/dL (32.0-36.0); MCV 71.3 fL (80-100); MPV 8.1 fL (7.6-11.3); Monocytes % 10.5 % (3.3-12.3); Neutrophils % 73.4 % (41.7-73.7); Nucleated Red Blood Cells % 0.3 % (0-0); Platelets 377 thou/uL (152-406); RBC Red Blood Cell Count 5.59 M/uL (4.33-5.43); Red Cell Distribution Width 20.7 % (12.1-15.2)
[2024-02-22] MEDS: NA CHLORIDE 0.9% 1,000 ML IV SCH (19:37)
[2024-02-22 19:47] LABS: Albumin 3.4 g/dL (3.4-5.0); Albumin/Globulin Ratio 0.8 (1.1-1.8); Alkaline Phosphatase 59 U/L (45-117); Anion Gap 12.7 mEq/L (5.0-15.0); BUN Blood Urea Nitrogen 33 mg/dL (7-18); Bicarbonate 20 mEq/L (21-32); Bilirubin Total 0.4 mg/dL (0.2-1.0); Globulin 4.2 g/dL (2.3-3.5); Glomerular Filtration Rate 20 ml/min (=/>90); Glucose Level 140 mg/dL (74-106); Potassium 3.7 mEq/L (3.5-5.1); Protein, Total 7.6 g/dL (6.4-8.2); Sodium Level 136 mEq/L (136-145); Troponin High Sensitivity 5.3 pg/mL (<58.9)
[2024-02-22 19:53] LABS: ALT/SGPT < 14 U/L (16-61); AST/SGOT < 10 U/L (15-37)
[2024-02-22] MEDS: INSULIN REGULAR (HUMAN) 100 UNIT/ML SQ SCH (20:02)
[2024-02-23 06:50] LABS: Anion Gap 14.6 mEq/L (5.0-15.0); Potassium 3.6 mEq/L (3.5-5.1)
[2024-02-23] MEDS: HEPARIN 5000 UNIT/ML 1 ML VIAL SQ ONE (10:00)
--- NOTE | 2024-02-23 11:20 | HP ---
Date of Admission: 02/22/2024 Chief Complaint: Diarrhea and feeling weak and poor appetite. History Of Present Illness: This is a 68-year-old very pleasant male patient, who was brought into office today by his and she reports that the patient is having diarrhea for last 2 days and is having multiple loose watery stool in the daytime. Denies any abdominal pain, nausea, vomiting. No blood in stool. He has had very poor appetite in last 2 days. No fever. No chills. No abdominal pain. He was feeling very weak, tired, and sleepy, so brought him to office today and at office, he was noted obviously to be extremely weak and tired. He was sitting in the chair with his eyes closed during almost entire office visit today. His blood pressure was low at office, which was verified with manual blood pressure check and after I evaluated him, decision was made to admit him to hospital with concerns about volume depletion. Review of Systems: GI: As mentioned above. Constitutional: As mentioned above. All other systems reviewed and negative. Allergies: TO PENICILLIN. Medications: Amlodipine 2.5 mg daily in morning, Eliquis 5 mg 2 times a day, Farxiga 10 mg daily in morning, ezetimibe 10 mg daily, famotidine 20 mg daily at bedtime, fenofibrate 145 mg daily, furosemide 40 mg daily, Toujeo 20 units subcutaneous injection daily in morning, losartan 100 mg daily, metformin 500 mg 2 times a day, metoprolol 50 mg 2 times a day, Rosuvastatin 40 mg daily, tamsulosin 0.4 mg daily, Mounjaro 10 mg subcutaneous injection once a week on Monday, and vitamin D 5000 units daily. Social History: Prior history of smoking, not at present time. Use of alcohol, negative. Past Surgical History: Significant for cervical spine surgery in 2015, surgery for right ankle fracture in 1985. Family History: Father at age 54 from [place]. Mother has diabetes. Brother with diabetes. Past Medical History: Significant for vascular dementia, type 2 diabetes mellitus, hypertension, hyperlipidemia, coronary artery disease, gastroesophageal reflux disease, benign prostatic hypertrophy, cervical spondylosis, lumbar spondylosis, osteoarthritis at multiple sites, chronic anticoagulation therapy due to saddle pulmonary embolism in 2022, recent history of stroke which was right parietal stroke, for which he was admitted to our hospital in November of this year. Physical Examination: Vital Signs: Height 5 feet 10 inches, weight 180.6 pounds, temperature 96.5, pulse 105, respiratory rate 16, blood pressure 91/61. General: The patient appears very weak and tired looking, sleeping most of the time with his eyes closed, but he does open up his eyes, not in any distress due to his underlying dementia. He is not answering any questions, but is able to provide all the details and answers for him. HEENT: Head atraumatic, normocephalic. Conjunctivae nonerythematous. Sclerae white. Mouth, no thrush or edema noted. Ears/Nose, no mass, lesion, discharge noted. Neck: Supple. No JVD, lymph nodes, bruit, thyromegaly noted. Lungs: Bilateral good equal air entry. Clear to auscultation. No rhonchi. No rales. Heart: Normal heart sounds, no murmur or gallop. Abdomen: Soft, bowel sounds normal. No guarding, rigidity, tenderness, mass, hepatosplenomegaly, distention, or bruit noted. Extremities: No leg edema. No calf tenderness. Skin: No rash, ulcer, cellulitis. Lymphatics: No lymph node enlargement in neck, supraclavicular, infraclavicular region. Neuro: No focal neurological deficit. Chest: Unremarkable. External Genitalia: Deferred. Rectal: Deferred. Laboratory Data: WBC 8.1, hemoglobin 12.4, platelets 377. Sodium 136, potassium 3.7, chloride 107, bicarb 20, BUN 33, creatinine 3, glucose 140. Liver function tests unremarkable. Troponin 5.3. Urinalysis is pending. His last outpatient blood work showed creatinine 1.2 on 02/19/2024. Chest x-ray, no acute changes. Impression: 1. Acute kidney injury. 2. Volume depletion. 3. Acute gastroenteritis. 4. Vascular dementia. 5. Type 2 diabetes mellitus. 6. Hypertension. 7. Hyperlipidemia. 8. Coronary artery disease. 9. Gastroesophageal reflux disease. 10. Benign prostatic hypertrophy. 11. Osteoarthritis, multiple sites. Plan: We will go ahead and admit the patient to hospital for further evaluation and management of this problem. The patient is appropriate for inpatient and is expected to spend 2 midnights in hospital. For his acute kidney injury and volume depletion problem, we will go ahead and start IV fluid per order and monitor his electrolytes and renal function. We will repeat blood work tomorrow morning. We will consult trestle mainternance laborer tomorrow. We will also get a renal ultrasound done tomorrow. For DVT prophylaxis, SCD was ordered. The patient takes Eliquis for chronic anticoagulation therapy for history of pulmonary embolism which was I believe in June 2022. At this point, we will not give any Eliquis, but we will go ahead and give heparin 5000 units subcutaneous injection every 12 hours starting tomorrow. We will also consult Physical Therapy to help ambulate him. For acute gastroenteritis, no need for any further intervention and that should improve with time. For diabetes, we will manage that with sliding scale insulin and no need for any further intervention on it. He took his last dose of Mounjaro 2 days ago. For hyperlipidemia, we will not start any of his medications today, but during this hospitalization, we will restart his statin therapy at appropriate time. For his hypertension, we will not give any of his antihypertensive medication at this point. Monitor blood pressure and consider to restart metoprolol at a lower dose at appropriate time. The patient is expected to spend 2 midnights in hospital and he is appropriate for inpatient. I did communicate all these details with the patient and the patient's . Arrangements were made for him to be admitted directly to the hospital for further management. Total time spent today was 80 minutes that includes evaluation and management for this hospital admission, making arrangements for the hospital admission, review of last office visit record from 12/26/2023, review of last hospital record from November of this year. ERIN/NURIA Voice ID: [id number] [id number]
--- NOTE | 2024-02-23 15:53 | ECHO ---
HEIGHT: 5 ft 10 in WEIGHT: 186 lb 0 oz DATE OF STUDY: 02/23/[address]: Dustin Del Angel MD 2-DIMENSIONAL: YES M.MODE: YES DOPPLER: YES COLOR FLOW: YES TDS: NO PORTABLE: YES DEFINITY: NO BUBBLE STUDY: NO DIAGNOSIS: HISTORY OF STROKE AND RENAL FAILURE. CARDIAC HISTORY: CATHERIZATION: SURGERY: PROSTHETIC VALVE: PACEMAKER: MEASUREMENTS (cm) DIASTOLIC (NORMALS) SYSTOLIC (NORMALS) IVSd 1.1 (0.6-1.2) LA Diam 3.5 (1.9-4.0) LVEF 63% LVIDd 3.5 (3.5-5.7) LVIDs 2.3 (2.0-3.5) %FS 33% LVPWd 1.2 (0.6-1.2) Ao Diam 2.9 (2.0-3.7) 2 DIMENSIONAL ASSESSMENT: RIGHT ATRIUM: NORMAL LEFT ATRIUM: NORMAL RIGHT VENTRICLE: NORMAL LEFT VENTRICLE: NORMAL TRICUSPID VALVE: NORMAL MITRAL VALVE: NORMAL PULMONIC VALVE: NORMAL AORTIC VALVE: NORMAL PERICARDIAL EFFUSION: NONE AORTIC ROOT: NORMAL LEFT VENTRICULAR WALL MOTION: NORMAL. DOPPLER/COLOR FLOW: NORMAL. COMMENTS: 1. NORMAL LEFT VENTTRICULAR SYSTOLIC FUNCTION. LEFT VENTRICULAR EJECTION FRACTION 60-65%, NORMAL WALL MOTION. 2. NORMAL DIASTOLIC FUNCTION. TECHNOLOGIST: ALONSO RODRIGUEZ
--- NOTE | 2024-02-23 16:30 | PN ---
Date of Progress Note: 02/23/2024 Subjective: The patient was seen this morning for followup. He was lying in bed, not in distress ove rall he looks better today than yesterday. Awake, alert, does not answer any questions. was wi th him at bedside, not in distress. Objective: Vital Signs: Reviewed. HEENT: Unremarkable. Lungs: Clear to auscultation. Heart: Sounds normal. Abdomen: Soft. Bowel sounds normal. No guarding, rigidity, tenderness, distention. Extremities: No leg edema. Laboratory Data: Sodium 136, potassium 3.6, chloride 110,0 bicarb 15, BUN 38, creatinine 4.01 glucos e 115. Impression: 1.Acute kidney injury. 2.Volume depletion. 3.Acute gastroenteritis. 4.Diabetes mellitus. 5.Vascular dementia. 6.Hypertension. Plan: We will go ahead and continue IV fluid. Renal ultrasound will be done today. We will follow up on that. We will follow up with health technician as consultation has been requested. I have also ord ered echocardiogram to evaluate his left ventricular ejection fraction. The patient has not voided s garland his admission. He has approximately 225 cc of urine in his bladder as per bladder scan as nurse informed me are early this morning. On exam, his bladder does not appear to be distended. We will go ahead and continue IV fluid. We will repeat blood work tomorrow. His acute kidney injury problem is due to acute gastroenteritis problem that he came in with. Abdominal exam is unremarkable. I be lieve that his renal failure hopefully can be reversed with ongoing IV fluid hydration and we are hop ing that by tomorrow, we might reach the peak after creatinine and then we should expect improvement after that. We will use heparin for DVT prophylaxis per order. SCDs in place. I did communicate wi th the patient and patient's regarding advance directives and the patient's has informed me that they did have this discussion in the past and according to patient's decision, he does not want any heroic measures like CPR, defibrillation, or ventilator support, and we will write DNR order in the chart per patient's decision as per my discussion today. Physical therapy was consulted. I will see him tomorrow for followup. ERIN/MODL Voice ID: [id number] Report ID: [id number]
--- NOTE | 2024-02-23 16:45 | RAD REPORT ---
EXAMINATION: US RENAL CLINICAL INDICATION: Acute renal injury TECHNIQUE: Real-time ultrasonography of the abdomen was performed. COMPARISON: CT 2022. FINDINGS: The right kidney measures 11 cm with a normal echotexture. The left kidney measures 12 cm with a normal echotexture. Left kidney contains a 2.2 cm complex cystic mass with internal septa. An additional 2.7 cm complex c ystic mass contains internal septation. No hydronephrosis. No abnormality bladder seen. IMPRESSION: Complex left renal cysts probably benign. It is recommended that patient have a follow-up renal ultra sound in 6 months to assess stability.
[2024-02-23] MEDS: HEPARIN 5000 UNIT/ML 1 ML VIAL SQ SCH (20:28)
[2024-02-24 09:21] LABS: Absolute Basophils 0.1 K/uL (0-0.5); Absolute Eosinophils 0.3 K/uL (0-0.5); Absolute Lymphocytes (CBC) 1.5 K/uL (0.7-4.9); Absolute Monocytes 1.1 K/uL (0.1-1.3); Absolute Neutrophil 6.5 K/uL (1.8-8.0); Basophils % 0.6 % (0-1.3); Eosinophils % 3.3 % (0-4.4); Hematocrit 35.9 % (39.6-49.0); Hemoglobin 11.1 g/dL (13.6-17.9); Lymphocytes % 15.7 % (15.3-44.8); MCH 22.1 pg (27.0-35.0); MCV 71.2 fL (80-100); MPV 7.9 fL (7.6-11.3); Monocytes % 11.9 % (3.3-12.3); Neutrophils % 68.5 % (41.7-73.7); Platelets 338 thou/uL (152-406); RBC Red Blood Cell Count 5.05 M/uL (4.33-5.43); Red Cell Distribution Width 21.1 % (12.1-15.2)
[2024-02-24 09:36] LABS: Anion Gap 13.7 mEq/L (5.0-15.0); Magnesium 1.9 mg/dL (1.6-2.4); Potassium 3.7 mEq/L (3.5-5.1)
[2024-02-24 09:52] LABS: Anisocytosis 1+; Atypical Lymphocytes 2 %; Blood Morphology Comment NOTED (NOT SEEN); Differential Total Cells Count 100; Eosinophils 2 % (0-3); Lymphocytes 14 % (15-42); Microcytosis 1+; Monocytes 14 % (0-10); Platelet Estimate ADEQ; Platelets, Giant FEW; Segmented Neutrophils 68 % (40-80)
[2024-02-24] MEDS: TAMSULOSIN 0.4 MG SR CAP PO ONE (10:51)
--- NOTE | 2024-02-24 11:03 | PN ---
Date of Progress Note: 02/24/2024 Subjective: The patient was seen this morning for followup. No new complaints or problems reported by him. He was lying in bed. His was with him at bedside. He is having poor appetite, not eat ing well as reported. Denies any abdominal pain, but has had some abdominal cramps and still re ports having some diarrhea, but exactly not sure how many times. Objective: Vital Signs: Last temperature this morning 97.2, pulse 101, respiratory rate 16, blood p ressure 112/65, oxygen saturation 98%. HEENT: Unremarkable. Lungs: Clear to auscultation. No wheezing. No rales. Not in any respiratory distress. Heart: Sounds normal. Abdomen: Soft, bowel sounds normal. No guarding, rigidity, tenderness, or distention. Extremities: No leg edema. Laboratory Data: Today, white count 9.6, hemoglobin 11.1, platelets 338. Sodium 139, potassium 3.7, chloride 110, bicarb 19, BUN 50, creatinine 4, glucose 89, magnesium 1.9. Echocardiogram showed nor mal ejection fraction and it was unremarkable. Renal ultrasound showed 2 complex cysts in the left k idney about 2.2 and 2.5 cm in size. No need for further intervention except monitoring in the future and all these details were discussed with the patient and patient's who was at bedside today. Impression: 1.Acute kidney injury. 2.Volume depletion. 3.Acute gastroenteritis. 4.Diabetes mellitus. Plan: We will go ahead and continue IV fluid, normal saline at 150 mL/hour for 1 L and then drop it down to 100 mL/hour. His BUN has gone up compared to yesterday, but creatinine has stabilized now an d as of tomorrow blood work did show improvement in creatinine as well. The patient was encouraged t o eat and Nephrology consultation is pending. Details and plan of treatment discussed with the patie nt's . DNR order was written in the chart as per my discussion with the patient and patient's wi fe and she has some paperwork at home and I have asked her today to bring that paperwork to the [facility] tomorrow so I can review it to make sure that she has appropriate out of hospital DNR paperwork f or him and if not, then we can assist them to complete the out of hospital DNR paper work. ERIN/MODL Voice ID: [id number] Report ID: [id number]
[2024-02-24 15:00] LABS: Sqamous Epithelial <5 /HPF (None Seen); Urine Bacteria <20 /HPF (<20); Urine Bilirubin NEGATIVE (Negative); Urine Blood Negative (Negative); Urine Clarity Extremely Turbid (Clear); Urine Color Yellow (Yellow); Urine Culture Reflex Order NOT NEEDED; Urine Glucose 3+ (Negative); Urine Ketones NEGATIVE (Negative); Urine Microscopic Reflex YN ORDER UMIC; Urine Mucus Slight /HPF (None Seen); Urine Nitrite NEGATIVE (Negative); Urine Protein 1+ (Negative); Urine RBC <5 /HPF (None Seen); Urine Urobilinogen Normal (Normal); Urine WBC None Seen /HPF (<5)
[2024-02-24] MEDS: Levofloxacin 750mg IV 750 MG/150 ML BAG IV ONE (16:47)
[2024-02-24] MEDS ORDERED: Levofloxacin500mg IV 500 MG/100 ML BAG IV ONE (17:00)
[2024-02-24] MEDS: LOPERAMIDE HCL 2 MG CAPSULE PO ONE (18:10)
[2024-02-24 21:28] LABS: C.diff Antigen/Toxin Ag neg : Tox neg (NEG : NEG); CDIFF INTERNAL NEG CONTROL White Background (WHITE BKGD); STOOL CONSISTENCY Liquid/Semi-Solid
--- NOTE | 2024-02-24 23:09 | CON ---
Date of Consultation: 02/24/2024 Chief Complaint: Acute kidney injury. History Of Present Illness: The patient is a 68-year-old man with previous history of CVA, diabetes mellitus, who was brought to the hospital after he was seen by Dr. Del Angel for routine visit in the [facility]. The patient was complaining of abdominal pain, nausea, vomiting, diarrhea. He had very poor joanie etite for at least 2-3 days. Prior admission, he denied fever, chills, and during this admission, he denied abdominal pain, chest pain, syncope. He was very sleepy, lethargic, and is admitted for hypo volemia, diarrhea. He was found to have severe acute kidney injury. Urine output is somewhat improv ing in response to IV fluids. The patient was started on is IV hydration. Review of Systems: General: Denies fever, chills. Eyes: Denies new vision changes. Ears, Nose, Mouth and Throat: Denies sore throat, earaches. Respiratory: Denies PND or orthopnea. Cardiovascular: Denies syncope, palpitations, chest pain. GI: Had nausea, vomiting, diarrhea. Denies melena or hematemesis. : Denies dysuria or hematuria. All other systems reviewed and all are negative. Past Medical History: Vascular dementia, diabetes mellitus, CVA, hypertension, hyperlipidemia, GERD, BPH, cervical spondylosis, lumbar spondylosis, osteoarthritis at multiple sites, chronic anticoagula tion therapy due to saddle pulmonary embolism in 2022, recent history of stroke, which was right javi etal stroke. The patient was hospitalized in November 2023 at [facility]. Family History: Father had [place], at age 54 from [place]. Mother, diabetes mellitus. Brother, diabete s mellitus. Past Surgical History: Significant for cervical spine surgery in 2016, right ankle surgery. Social History: History of smoking, currently, he does not smoke. Negative for alcohol use. Physical Examination: General: The patient is awake, alert, follows commands. Eyes: Anicteric sclerae. EOMI. Ears, Nose, Mouth and Throat: Oral mucosa moist. No pallor. Neck: Supple. No bruits. Lungs: Clear to auscultation bilaterally. Heart: S1, S2. No pericardial friction rub. Abdomen: Soft, benign, nontender. Extremities: No edema. Skin: Warm and dry. No cellulitis. Laboratory Work: WBC 8.1, hemoglobin 12.4, platelet 377. Sodium 136, potassium 3.7, chloride 107, b icarbonate 20, BUN 33, creatinine 3, glucose 140. Troponin 5.3. Today, lab work showed sodium 139, potassium 3.7, chloride 110, CO2 19, BUN 50, creatinine 4.00, magnesium 1.9, calcium 8.5. Urinalysis ; rbc less than 5, wbc none, glucose 3+, protein negative, urine total protein 1+. Impression And Plan: 1.Acute kidney injury, severe. The patient is on IV fluids and the patient presented to the [facility] and was found to have hypotension, severe hypovolemia. He is on normal saline. Continue normal sa line infusion. Urine output is somewhat improving. Plan is to check CK level to rule out rhabdomyol ysis. The patient has history of diabetes mellitus and he will continue insulin. Metformin is stopp ed. 2.History of BPH. The patient will continue Flomax. Monitor bladder scan. 3.Renal ultrasound was done. There is no obstructive uropathy. There is no urinary retention. 4.I discussed with the patient's about possible hemodialysis if renal function does not improve over the next 24 hours. JAYLIN/MODL Voice ID: [id number] Report ID: [id number]
[2024-02-25 05:53] LABS: Anion Gap 9.3 mEq/L (5.0-15.0); Magnesium 1.8 mg/dL (1.6-2.4); Potassium 3.3 mEq/L (3.5-5.1)
[2024-02-25] MEDS: TAMSULOSIN 0.4 MG SR CAP PO SCH (08:18)
[2024-02-25] MEDS: NACHLORIDE 0.45% 1,000 ML IV SCH (10:30)
[2024-02-25] MEDS: POTASSIUM CL SA 10 MEQ TAB PO ONE (10:30)
[2024-02-25] MEDS: APIXABAN 2.5 MG TABLET PO SCH (10:34)
--- NOTE | 2024-02-25 10:54 | PN ---
Date of Progress Note: 02/25/2024 Subjective: The patient was seen this morning for followup. He was lying in bed, not in any distres s, feeling fine. His was present with him at bedside. He still continues to have diarrhea. Ye sterday, he had after having 3 loose watery stool, 1 dose of Imodium 2 mg was given and after that it did help him to some extent, but still continues to report having some diarrhea. No nausea, no vomi ting. Yesterday, he did eat better than the day before as reported by . Objective: Vital Signs: Reviewed. Temperature 97.8, pulse 96, respiratory rate 16, blood pressure 144/77. HEENT: Unremarkable. Lungs: Clear to auscultation. Heart: Sounds normal. Abdomen: Soft. Bowel sounds normal. No guarding, rigidity, tenderness, or distention. Extremities: No leg edema. Laboratory Data: Sodium 140, potassium 3.3, chloride 117, bicarb 17, BUN 48, creatinine 2.37, glucos e 82, magnesium 1.8. Impression: 1.Acute kidney injury. 2.Volume depletion. 3.Acute gastroenteritis. 4.Type 2 diabetes mellitus. 5.Hypokalemia. Plan: We will go ahead and continue Levaquin, which was started yesterday as patient continues to lorenzo ve diarrhea. Stool test was ordered, result pending. We will discontinue heparin now and instead of that we will start him on Eliquis, but we will start low dose 2.5 mg 2 times a day starting this mor hallie. We will continue IV fluid, but I will change his IV fluid from normal saline to half-normal sa line considering his chloride is going up. The patient's volume depletion and acute kidney injury pr oblem is improving very well with current treatment provided and physical therapy to work with the lee handley. Depending on how he does with physical therapy, we may need to decide about possibility of go ing to fifth floor for inpatient rehab if necessary and if he qualifies. All these details were discussed with the patient's and patient today. ERIN/MODL Voice ID: [id number] Report ID: [id number]
[2024-02-25 11:05] VITALS: O2SAT 97
[2024-02-25] MEDS ORDERED: ZINC OXIDE 40% 30 GM TUBE TOP PRN (15:01)
[2024-02-25] MEDS: LOPERAMIDE HCL 2 MG CAPSULE PO ONE (15:14)
[2024-02-25] MEDS ORDERED: ZINC OXIDE 20% OINTMENT 60gm TOP PRN (15:14)
[2024-02-25] MEDS: ACETAMINOPHEN 500 MG TAB PO PRN (20:07)
[2024-02-26 06:55] LABS: Absolute Basophils 0.1 K/uL (0-0.5); Absolute Eosinophils 0.4 K/uL (0-0.5); Absolute Lymphocytes (CBC) 1.7 K/uL (0.7-4.9); Absolute Monocytes 0.9 K/uL (0.1-1.3); Basophils % 0.6 % (0-1.3); Eosinophils % 5.3 % (0-4.4); Hematocrit 30.2 % (39.6-49.0); Hemoglobin 9.5 g/dL (13.6-17.9); Lymphocytes % 20.6 % (15.3-44.8); MCH 22.5 pg (27.0-35.0); MCHC 31.6 g/dL (32.0-36.0); MCV 71.3 fL (80-100); MPV 7.7 fL (7.6-11.3); Monocytes % 10.6 % (3.3-12.3); Neutrophils % 62.9 % (41.7-73.7); Nucleated Red Blood Cells % 0.1 % (0-0); Platelets 319 thou/uL (152-406); RBC Red Blood Cell Count 4.24 M/uL (4.33-5.43)
[2024-02-26 07:05] LABS: Anion Gap 6.7 mEq/L (5.0-15.0); Potassium 3.7 mEq/L (3.5-5.1)
[2024-02-26] MEDS: Levofloxacin 250mg IV 250 MG/50 ML BAG IV SCH (11:54)
[2024-02-26] MEDS ORDERED: Levofloxacin500mg IV 500 MG/100 ML BAG IV SCH (17:00)
[2024-02-26 21:13] VITALS: TEMP 97.5
--- NOTE | 2024-02-26 22:03 | PN ---
Date of Progress Note: 02/26/2024 Subjective: The patient was seen this morning for followup. No new complaints or problems reported by the patient, lying in bed, not in distress. Objective: Vital Signs: Reviewed. HEENT: Unremarkable. Lungs: Clear to auscultation. Heart: Sounds normal. Abdomen: Soft. Bowel sounds normal. No guarding, rigidity, tenderness, distention. Extremities: No leg edema. Laboratory Data: Reviewed. Impression: 1. Acute kidney injury. 2. Volume depletion. 3. Acute gastroenteritis. Plan: We will go ahead and continue IV fluid. Continue antibiotics. We will have Physical Therapy continue to work with the patient and Social Service consultation was requested to see if the patient can go to inpatient rehab if he qualifies and if the patient is accepted, plan is to discharge him to go to inpatient rehab tomorrow. Details and plan of treatment discussed with the patient and the patient's who was at bedside. ERIN/MODL Voice ID: [id number] Report ID: [id number] YESY
--- NOTE | 2024-02-26 23:03 | PN ---
Date of Progress Note: 02/26/2024 Chief Complaint: Acute kidney injury. History Of Present Illness: The patient is a 68-year-old man with previous history of CVA, diabetes mellitus, who was brought to the hospital after he was seen by his primary doctor, Dr. Del Angel, for rout ine visit in the office. The patient was complaining of abdominal pain, nausea, vomiting, diarrhea, at least for several days prior to this admission. He had decreased appetite for 2-3 days. He was f ound to have severe hypovolemia. Lab work showed acute kidney injury, elevated BUN and creatinine. The patient was admitted to the hospital for IV fluids. He was started on IV hydration with normal s diya. Today, he is feeling better. Review of Systems: Denies chest pain, palpitation. Physical Examination: Lungs: Diminished breath sounds at bases. Heart: S1, S2. Abdomen: Soft. Extremities: No edema. Impression And Plan: 1.Acute kidney injury, severe, borderline oliguric. The patient was found to have elevated creatini ne level up to 3 and BUN 33. The patient has history of diabetes mellitus with renal manifestation. He is responding to IV fluids with normal saline. Continue to monitor fluid balance. Continue IV n ormal saline and check renal panel in the morning. 2.History of BPH. Continue Flomax. The patient has a Garcia catheter. 3.Renal ultrasound was done and did not show obstructive uropathy. There is no evidence of nephriti s. The patient has diabetes mellitus. He will need further workup for proteinuria. 4.Hypertension. CHRISTIANO inhibitor is on hold due to acute kidney injury. The patient is on IV fluids. Continue current treatment. EB/MODL Voice ID: [id number] Report ID: [id number]
[2024-02-27 05:09] VITALS: BP 142/79
[2024-02-27] MEDS: levoFLOXacin 250 MG TAB PO SCH (08:25)
--- NOTE | 2024-02-28 12:20 | PN ---
Date of Progress Note: 02/27/2024 Subjective: The patient was admitted to the hospital with acute kidney injury secondary to prerenal, dehydration secondary to GI loss. The patient's obstructive uropathy has been ruled out. After hyd ration, the patient's kidney function has been improved. The patient upon arrival to the hospital, c reatinine was 3.2, jumped to 4, currently down to 1.3. Physical Examination: Vital Signs: Blood pressure 142/79, pulse of 71. Chest: Clear to auscultation. Heart: S1, S2. Regular. Systolic murmur. Abdomen: Soft, nontender. Extremities: No edema. Neuro: Alert. No focality. Current Medications: The patient is on Tylenol, insulin, levothyroxine, Flomax. Home Medications: Include losartan, , Flomax, fenofibrate, amlodipine. Laboratory Data: Sodium 140, potassium 3.7, bicarb 20, BUN 31, creatinine 1.3. GFR 56. Calcium 8.5 . Urinalysis negative for infection. Renal ultrasound, 04/09 complex cyst 2.2 cm and 2.7 cm on the left side. Assessment And Plan: 1.Acute kidney injury secondary to prerenal, dehydration, superimposed with ARB on the recovery phas e. I am going to continue to monitor the patient. The patient is cleared from the Renal standpoint for discharge planning. Keep holding ARB and we will monitor. 2.Hypertension, controlled, optimal with the recent acute kidney injury. Keep holding ARB. 3.Complex renal cyst. The patient will need workup as outpatient. DENIA Voice ID: [id number] Report ID: [id number]
== END 2024-02-27 11:25 | DRG 684 ==
LOC: 2ND 16:41
PROVIDERS: ADMIT Internal Medicine; ATTEND Internal Medicine
DX: N17.9 Acute kidney failure, unspecified (principal); E11.9 Type 2 diabetes mellitus without complications; E78.5 Hyperlipidemia, unspecified; I10 Essential (primary) hypertension; E87.6 Hypokalemia; I95.9 Hypotension, unspecified; E86.0 Dehydration; N28.1 Cyst of kidney, acquired; K52.9 Noninfective gastroenteritis and colitis, unspecified; M19.09 Primary osteoarthritis, other specified site; K21.9 Gastro-esophageal reflux disease without esophagitis; N40.0 Benign prostatic hyperplasia without lower urinary tract symptoms; I25.10 Atherosclerotic heart disease of native coronary artery without angina pectoris; F01.50 Vascular dementia, unspecified severity, without behavioral disturbance, psychotic disturbance, mood disturbance, and anxiety; Z66 Do not resuscitate; Z88.0 Allergy status to penicillin; Z79.01 Long term (current) use of anticoagulants; Z79.84 Long term (current) use of oral hypoglycemic drugs; Z79.899 Other long term (current) drug therapy; Z87.891 Personal history of nicotine dependence; Z86.711 Personal history of pulmonary embolism
CPT/HCPCS: 36415; 71045; 76770; 80048; 80053; 81001; 82947; 83735; 84484; 85025; 87045; 87046; 87324; 93306; 97116; 97161; 97530; J1644; J7030

== ENCOUNTER 2024-02-27 09:20 | Inpatient (IN) | payer OTHER, MEDICARE ==
[2024-02-27 12:32] VITALS: BMI 26.6
[2024-02-27] MEDS ORDERED: ACETAMINOPHEN 500 MG TAB PO PRN (14:30)
[2024-02-27] MEDS: levoFLOXacin 250 MG TAB PO SCH (14:44)
[2024-02-27 15:20] LABS: Sqamous Epithelial None Seen /HPF (None Seen); Urine Bacteria <20 /HPF (<20); Urine Bilirubin NEGATIVE (Negative); Urine Blood Negative (Negative); Urine Clarity Clear (Clear); Urine Color Light-Yellow (Yellow); Urine Culture Reflex Order NOT NEEDED; Urine Glucose 4+ (Over) (Negative); Urine Ketones NEGATIVE (Negative); Urine Micro Reflex YN NO BILL MICROSCOPIC; Urine Mucus Slight /HPF (None Seen); Urine Nitrite NEGATIVE (Negative); Urine Protein TRACE (Negative); Urine RBC <5 /HPF (None Seen); Urine Urobilinogen Normal (Normal); Urine WBC <5 /HPF (<5); Urine pH 5.5 (5.0-7.0)
[2024-02-27] MEDS: INSULIN REGULAR (HUMAN) 100 UNIT/ML SQ SCH (16:30)
[2024-02-27] MEDS: APIXABAN 2.5 MG TABLET PO SCH (20:19)
[2024-02-27] MEDS: GLUCERNA SHAKE 237 ML CAN PO SCH (20:19)
--- NOTE | 2024-02-28 01:21 | HP ---
Date of Admission: 02/27/2024 Time Of Service: 1 p.m. Chief Complaint: "I became weak, had problems breathing, and difficulty eating." History Of Present Illness: Mr. Sanches is a 68-year-old patient, who came to his primary care phys ician, Dr. Del Angel, with diarrhea, loss of appetite of 2 days. He was sent to the hospital for further evaluation. He was found to have acute renal insufficiency, volume depletion, gastroenteritis along with chronic benign prostatic hypertrophy, coronary artery disease, dementia, diabetes mellitus, GE r eflux, hypertension, hyperkalemia. He received fluid management. This was managed by the Nephrology Service and anticoagulation while in acute hospital. He was evaluated by the Physical Therapy Servi ce and found to be significantly debilitated. He required minimum assistance for hzobfe-nu-bun trans fers, contact guard assistance for jtf-kw-lzuor transfers, minimum assistance for ambulating about 10 0 feet. In addition to requiring careful management of his comorbid conditions, he did require signi ficant physical and occupational therapy along with speech therapy to help him return to his prior le jose of functioning and help to reduce risk of rehospitalization. Past Medical History: Vascular dementia, diabetes mellitus type 2, hypertension, dyslipidemia, coron skylar artery disease, gastroesophageal reflux disease, benign prostatic hypertrophy, cervical spondylos is, lumbar spondylosis, osteoarthritis at multiple sites, recent treatment with anticoagulation to sa ddle embolus in 2022 and stroke with right brain involvement in November 2023 and left body weakness. Allergies: NO KNOWN DRUG ALLERGIES. Medications: Tylenol 500 mg every 6 hours as needed, Eliquis 2.5 mg twice daily, Glucerna 237 mL twi ce daily, insulin sliding scale, Levaquin 250 mg daily, Flomax 0.4 mg daily, zinc oxide apply topical ly twice daily that is 20% ointment. X-ray/imaging: Echocardiogram done on 02/23/2024 shows normal left ventricular systolic function. L eft ventricular ejection fraction 60% to 65% with normal study. Normal diastolic function. Chest x- ray on 02/21 shows no acute intrathoracic process. Renal ultrasound on 02/22 shows a complex right r enal cyst, probably benign. Recommended that the patient have a followup renal ultrasound in 6 month s. Laboratory Studies: White blood cell count 8, hemoglobin 9.5, hematocrit 30.2, platelets 319. Sodiu m 140, potassium 3.7, glucose is 92, BUN 31, creatinine 1.37, calcium 8.5, magnesium 2.0. Family History: Noncontributory. Social History: No alcohol, tobacco, or IV drug use. The patient lives with his . Review of Systems: As noted, some difficulty maintaining oral intake with nausea and vomiting has improved. Mild myalgi as, arthralgias. No rash. No psychiatric complaints. Mild memory loss. No genitourinary issues or other complaints. Current Level Of Functioning: Setup assistance for eating, oral hygiene. Moderate assistance for to ileting, showering, upper body dressing, lower body dressing, donning and doffing footwear. For roll ing [id number]-wt-xnedh, sit to lying, and lying to sitting on side of bed and sit to stand, moderate marina tance. Transfer from bed to chair to wheelchair to toilet, moderate assistance. Ambulation, moderat e assistance with a rolling walker covering 100 feet. Physical Examination: Vital Signs: Blood pressure 150/74, pulse 76, respiratory rate 16, temperature 97.7, oxygen saturati on 97%. General: Mr. Sanches is resting comfortably in bed. is at bedside. HEENT: He is normocephalic, atraumatic. Sclerae anicteric. Oropharynx pink, moist. Neck: Supple. Chest: Clear. Heart: Regular. Extremities: Show no significant edema or cyanosis. There is mild proximal more than distal upper a nd lower extremity weakness. Does follow all commands appropriately. Aside from his mild left-sided incoordination and weakness from the right parietal stroke, no new deficits identified. Rehab And Medical Assessment And Plan: Mr. Sanches is a 68-year-old patient in the rehabilitation [facility] with impairment category 20, miscellaneous. His impairment group code is 16, debility, noncardia c, nonpulmonary. Etiologic diagnosis of kidney injury. His comorbidities are benign prostatic hyper trophy, coronary artery disease, decreased mobility, decreased physical functioning, diabetes mellitu s type 2, gastroesophageal reflux disease, dyslipidemia, hypertension, hypokalemia, osteoarthritis, d ecreased physical functioning. Plan: 1.He will have physical, occupational, and speech therapy for 3.5 hours, 5 of 7 days. 2.Medical conditions are managed by Dr. Del Angel, his primary care physician. He will have Eliquis 2.5 mg twice daily for DVT prophylaxis, Tylenol 500 mg every 6 hours as needed for pain, Glucerna for mal nutrition, Levaquin 250 mg for his infection urinary tract, Flomax 0.4 mg at night for prostate hyper trophy, zinc oxide to help his immune system function. Comorbidities That Are Impacting Rehabilitation: He does have some mild dementia. May begin donepez il or memantine and consider the Exelon patch or galantamine as well. He is at risk of falls. Fall precautions will be adhered to at all times. We will work with incentive spirometer and increase his respiratory capacity to withstand fatigue. He is somewhat debilitated and will work hard to improve his ability to mobilize more than household distances. Rehab Specific Plan: Mr. Sanches will have physical, occupational, and speech therapy for 3.5 hours , 5 of 7 days to improve his ability to transfer from bed to chair to a rolling walker and wheelchair , to get on and off the toilet, in and out of shower to perform toileting and showering. He will wor k with physical therapy to ambulate over 250 feet with modified independence up and down 10 steps wit h modified independence, propel a wheelchair 250 feet with modified independence. Work with speech p athology to improve his cognition to min assist and supervision. Mr. Sanches and his have good understanding of the process of admission to the inpatient rehabi litation facility and how he would benefit from physical, occupational, and speech therapy. He will have 24 hours a day, 7 days a week skilled rehabilitation nursing, daily physician evaluation and man agement, and social service evaluation and management for discharge planning, home equipment, prescri ptions, and continued therapy. If need be along with Dr. Del Angel, his primary care physician, omid yo help will be sought by the Pulmonary Service and Cardiology Service. Barriers To Discharge: He is significantly at risk of worsening given his current debility. However , he is going to be worked very well with rehab at least 3.5 hours, 5 days a week. He may require co ntinued help such as in nursing home, however, impact depends on how well he recovers. Length Of Stay: About 2 weeks. Disposition: Home with family and continue therapy. Prognosis: Good. Rehab Specific Goals: 1.Become independent with upper and lower body dressing and donning and doffing footwear. 2.Independently ambulate 250 feet with a rolling walker. 3.Independently go up and down 10 steps with bilateral handrails. 4.Independently mobilize 250 on a wheelchair. 5.With supervision, perform cognitive functioning. The above goals were reviewed with Mr. Sanches and he is in agreement. By signing this document, I acknowledge I personally performed a full physical examination on Mr. Met robins no later than 24 hours after his admission to the inpatient rehabilitation facility and determi tawny that he is able to tolerate the above course of treatment at an intensive level for reasonable pe riod of time. A detailed individualized plan of care for him will be completed by hospital day 4 bas ed on the preadmission screen, history and physical, and therapy evaluations. TOMÁS Voice ID: [id number]
[2024-02-28 06:38] LABS: Absolute Basophils 0.1 K/uL (0-0.5); Absolute Eosinophils 0.7 K/uL (0-0.5); Absolute Lymphocytes (CBC) 2.3 K/uL (0.7-4.9); Absolute Monocytes 0.8 K/uL (0.1-1.3); Absolute Neutrophil 6.2 K/uL (1.8-8.0); Basophils % 1.2 % (0-1.3); Eosinophils % 6.6 % (0-4.4); Hematocrit 31.9 % (39.6-49.0); Lymphocytes % 22.4 % (15.3-44.8); MCH 22.5 pg (27.0-35.0); MCHC 31.3 g/dL (32.0-36.0); MCV 71.8 fL (80-100); MPV 8.8 fL (7.6-11.3); Monocytes % 7.9 % (3.3-12.3); Neutrophils % 61.9 % (41.7-73.7); Nucleated Red Blood Cells % 0.1 % (0-0); Platelets 309 thou/uL (152-406); RBC Red Blood Cell Count 4.45 M/uL (4.33-5.43); Red Cell Distribution Width 21.3 % (12.1-15.2)
[2024-02-28 07:20] LABS: Albumin 2.5 g/dL (3.4-5.0); Anion Gap 5.8 mEq/L (5.0-15.0); Magnesium 1.9 mg/dL (1.6-2.4); Potassium 3.8 mEq/L (3.5-5.1); Prealbumin 14.3 mg/dL (20-40)
[2024-02-28] MEDS: TAMSULOSIN 0.4 MG SR CAP PO SCH (08:07)
[2024-02-28] MEDS: ZINC OXIDE 20% OINTMENT 60gm TOP SCH (08:09)
[2024-02-28 08:29] LABS: Atypical Lymphocytes 1 %; Band Neutrophils 1 % (0-1); Blood Morphology Comment NOTED (NOT SEEN); Differential Total Cells Count 100; Eosinophils 5 % (0-3); Lymphocytes 19 % (15-42); Metamyelocytes 3 % (0-0); Monocytes 9 % (0-10); Myelocytes 1 % (0-0); Platelet Estimate ADEQ; Segmented Neutrophils 61 % (40-80)
[2024-02-28 08:30] LABS: Anisocytosis 1+
[2024-02-28] MEDS: MOUNJARO 10 MG/0.5 ML SQ SCH (13:56)
--- NOTE | 2024-02-28 19:06 | PN ---
Date of Progress Note: 02/28/2024 Subjective: The patient was seen this morning for followup. No new complaints or problems reported by him. Lying in bed. No more diarrhea. No nausea. No vomiting. No abdominal pain. Physical Examination: HEENT: Unremarkable. Lungs: Clear to auscultation. Heart: Sounds normal. Abdomen: Soft. Bowel sounds normal. No guarding, rigidity, tenderness, distention. Extremities: No leg edema. Laboratory Data: White count 10, hemoglobin 10, platelets 309. Sodium 143, potassium 3.8, chloride 118, bicarb 23, BUN 18, creatinine 0.91, glucose 110, albumin 2.5. Impression: 1.Acute kidney injury, resolved. 2.Anemia. 3.Type 2 diabetes mellitus. 4.Hypertension. 5.Generalized weakness. 6.Debility. 7.Vascular dementia. Plan: We will go ahead and continue current medication. We will continue current antibiotic which i s Levaquin for his acute gastroenteritis. His diarrhea problem has resolved now. We will continue t o apply zinc oxide topically to skin in the perineal area due to rash from the diarrhea. We will go ahead and continue physical therapy under guidance of Dr. Patel. The patient will get his Mounjar o dose today and will bring this home. No need for further intervention for anemia except monitoring and I will see him tomorrow for followup. ERIN/MODL Voice ID: [id number] Report ID: [id number]
--- NOTE | 2024-02-28 22:33 | PN ---
Date of Progress Note: 02/28/2024 Time Of Service: 1:15 p.m. Subjective: Mr. Sanches is resting comfortably in his bed in between therapy sessions so far. He i s recovering better, doing more, less fatigue with greater distance discovered. Objective: No fevers or chills. No nausea, vomiting, myalgias, arthralgias. No rash. No other pos itives. Physical Examination: Vital Signs: Blood pressure 138/70, pulse 70, respiratory rate 20, temperature 97.2, O2 saturation 9 8%. Weight 106 pounds, height 5 feet 7 inches, BMI 26.7. General: Mr. Sanches again is resting in bed. He is in no acute distress. HEENT: Head is normocephalic, atraumatic. Sclerae anicteric. Oropharynx moist. Neck: Supple. Chest: Clear. Heart: Regular. Extremities: No significant clubbing, cyanosis, or edema. Laboratory Studies: White blood cell count 10.0, hemoglobin 10.0, platelets 309. His sodium 143, po tassium 3.8, chloride 19, carbon dioxide 23, BUN 18, creatinine 0.90. His glucose is 99-133, calcium 8.9, magnesium 1.9, albumin 2.5. Prealbumin 14.3. Urinalysis, 4+ glucose, trace protein, otherwise unremarkable. X-ray/imaging: No new x-rays or imaging. Medications: Tylenol Extra Strength 500 mg every 6 hours as needed, Eliquis 2.5 mg twice daily, ____ twice daily, insulin sliding scale at mild level, Levaquin 250 mg daily. He came to the ED to complete treatment for UTI. Lidocaine patch apply 1 topically daily to the back , where the patient did report some mild pain between the left shoulder blade and the paraspinous reg ion that soreness likely related to the patient's using Thera-Band for chest extension type exercises . He is continuing on Flomax 0.4 mg at night for prostate hypertrophy. Zinc oxide for his immune sy stem function. Progress Made With Physical, Occupational, And Speech Therapy: Today, with his physical therapy, he ambulated 250 feet to 25 feet, and 75 feet and twice 100 feet with a rolling walker and contact guard assistance. He was able to mobilize wheelchair 175 feet with standby assistance, verbal cues being required. He was up and down 10 steps with bilateral handrails with contact guard assistance. He di d that twice. With occupational therapy, completed oral hygiene. Standing at the sink for 3 minutes . The upper body support was without difficulty. Vwg-wm-[id number] transfers with verbal cues done with supervision. Indication multiple [id number] transfer with a rolling walker 5 steps due to some fat igue. With speech, recall 2 of 3 unrelated pictures after 5 minutes on first attempt and 3 of 3 pict ures after 5 minutes on second attempt. Four pictures added by the patient recalled 3 of 4 after 5 m inutes. Organizational thinking use for identifying excluded items in a concrete categories with 80% accuracy. Assessment: Mr. Sanches is a 68-year-old patient in the rehabilitation unit with chronic kidney inj ury that is exacerbated and his debility, decreased physical functioning, decreased mobility, prostat e hypertrophy, coronary artery disease, diabetes mellitus type 2, dyslipidemia, hypertension, hypokal emia, and osteoarthritis. He does have as noted some soreness in the right back, in the scapula betw een that and the spinous process region. Pain patch today placed there. Plan: 1.He will have physical, occupational, and speech therapy continue 3.5 hours, 5 of 7 days. 2.We will have to place a patch for pain in the right medial scapular region on the knee as well. C ontinue with DVT prophylaxis. Continue Tylenol, Glucerna, Levaquin, Flomax, . His comorbidities are managed by assistance from Dr. Del Angel, his primary care physician. AYAH/NURIA Voice ID: [id number] Report ID: [id number]
[2024-02-29] MEDS: LIDOCAINE 4% PATCH TOP SCH (07:35)
[2024-02-29] MEDS: AMLODIPINE 2.5 MG TAB PO SCH (09:27)
[2024-02-29] MEDS: METOPROLOL TAR 25 MG TAB PO SCH (09:27)
--- NOTE | 2024-02-29 18:45 | PN ---
Date of Progress Note: 02/29/2024 Subjective: The patient was seen this morning for followup. He was sleeping, easily arousable, not in distress. Denies any diarrhea. No abdominal pain, nausea, vomiting. Objective: Vital signs: Reviewed. Blood pressure seems to be elevated with systolic blood pressure around 160 to 162 range. HEENT: Unremarkable. Lungs: Clear to auscultation. Heart: Sounds normal. Abdomen: Soft. Bowel sounds normal. No guarding, rigidity, tenderness, distention. Extremities: No leg edema. Skin: The patient has no rash or any skin irritation over his buttocks or perianal skin area. Impression: 1.Acute kidney injury. 2.Volume depletion. 3.Acute gastroenteritis. 4.Hypertension. 5.Chronic anticoagulation therapy. 6.Diabetes mellitus. Plan: We will go ahead and restart the patient's cholesterol medication which is rosuvastatin and hi s antihypertensive medication which is amlodipine as well as metoprolol per order. We will monitor b lood pressure if necessary, adjust medication. For diabetes, his fingerstick blood sugar readings re viewed which is under very good control and the patient's was asked to give his Mounjaro injecti on yesterday which the patient says that she did administer that yesterday. We will go ahead and con tinue physical therapy under guidance of Dr. Patel. The patient was encouraged to keep himself well hydrated and continue curr ent Eliquis 2.5 mg 2 times a day. ERIN/MODL Voice ID: [id number] Report ID: [id number]
--- NOTE | 2024-02-29 20:30 | PN ---
Date of Progress Note: 02/29/2024 Time Of Service: 1:15 p.m. Subjective: Mr. Sanches is resting in his room. is at the bedside. He is feeling better abou t his therapy. He has had a pain patch placed in the position between his right shoulder blade and t he spinous region where there are some muscle spasms after he did the Thera-Band exercises that has h elped his pain. Review of Systems: No fevers, chills. Mild myalgias and arthralgias. No rash. No other positives. Physical Examination: Vital Signs: Blood pressure 160/83, pulse of 77, respiratory rate 16, temperature 97.2, oxygen satur ation 99%. General: Mr. Sanches again is resting comfortably. He is in no acute distress. HEENT: He appears to be normocephalic, atraumatic. Sclerae anicteric. Oropharynx moist. Neck: Supple. Chest: Clear. Extremities: No significant edema, cyanosis, or clubbing. Laboratory Studies: No new laboratory studies today, except blood sugars ranged from 100-118. X-ray/imaging: No x-rays or imaging. Progress Made With Physical, Occupational, And Speech Therapy: Today, with physical therapy, ambulat ed 375 feet, another 125 feet and 150 feet with supervision with a rolling walker. He was up and mallorie n 15 steps with bilateral handrails with standby assistance. Tafxle-kp-ekq transfers done with super vision. Toilet transfers, standby assistance. With occupational therapy, completed again, toilet priscilla hughes, supervision. Engaged in bilateral leg press exercises with and did well. With spe ech, he completed an interactive memory task session utilizing 12 cards with 6 matches. He did recal l the location of the matches on given opportunity with 50% accuracy. With additional time, he devel oped memory strategies independently, improved score to 70%. Assessment: Mr. Sanches is a 68-year-old patient in the rehabilitation unit with chronic kidney dis ease, debility, decreased physical functioning, decreased mobility, prostate hypertrophy, coronary ar nikita disease, diabetes mellitus type 2, dyslipidemia, hypertension, hypokalemia, also osteoarthritis and muscle spasm, which is improving. Plan: 1.He will continue with physical, occupational, and speech therapy for 3.5 hours, 5 of 7 days. 2.His comorbid conditions are managed by Dr. Del Angel, his primary care physician. He has DVT prophylax is with Eliquis 2.5 mg twice daily, Norvasc 2.5 mg daily for hypertension with Pepcid for GE reflux. Continue Levaquin for his UTI, Lopressor for blood pressure control, Crestor for dyslipidemia, Floma x for prostate hypertrophy, and is on zinc oxide for function. Comorbidities Impacting Rehabilitation: Currently, comorbidities are stably managed and not negative ly impacting his rehabilitation. AYAH/NURIA Voice ID: [id number] Report ID: [id number]
[2024-02-29] MEDS: ROSUVASTATIN 10 MG TAB PO SCH (20:58)
[2024-02-29] MEDS: FAMOTIDINE 20 MG TAB PO SCH (20:58)
[2024-03-01] MEDS: LIDOCAINE 4% PATCH TOP SCH (09:43)
--- NOTE | 2024-03-01 11:06 | PN ---
Date of Progress Note: 03/01/2024 Subjective: The patient was seen this morning for followup. No new complaints or problems reported by the patient. He was lying in bed, not in distress. His was present with him at bedside. De nies any more diarrhea. No abdominal pain, nausea, vomiting. Objective: Vital Signs: Reviewed. HEENT: Unremarkable. Lungs: Clear to auscultation. Heart: Sounds normal. Abdomen: Soft. Bowel sounds normal. No guarding, rigidity, tenderness, distention. Extremities: No leg edema. Impression: 1.Type 2 diabetes mellitus. 2.Hypertension. 3.Hyperlipidemia. 4.Generalized weakness. 5.Debility. Plan: We will continue current antihypertensive medication which is amlodipine and metoprolol per or varsha. Continue statin therapy, which is rosuvastatin. We will continue famotidine 20 mg daily at bed time for gastroesophageal reflux disease. For diabetes, fingerstick blood sugar readings reviewed. The patient received his Mounjaro 2 days ago and at this time, there is no need for any other oral di abetes medication for him. The patient is on Eliquis 2.5 mg 2 times a day and on outpatient basis, rose peck was taking 5 mg 2 times a day since June 2022 when he had significant problem with pulmonary em bolism. He was told from [facility] that he will be on lifelong anticoagulation therapy as p er my discussion with the today, so what I have asked her is that we should right now continue h is anticoagulation therapy, but at a lower dose which is 2.5 mg 2 times a day, which can be continued as a lifelong therapy if needed to do so, if need stronger dose which is 5 mg 2 times a day any long er. He should also seek out hematological consultation on outpatient basis for their recommendation and will look into any reports from [facility] from June 2022 and she will bring it to me for my review as well. I will see him tomorrow for followup. ERIN/MODL Voice ID: [id number] Report ID: [id number]
--- NOTE | 2024-03-01 13:25 | P.RH.PN ---
Estimated Length of Stay: 9 Expected Discharge Date: 03/06/24 Discharge Disposition Plan: Home Family Support: Yes Vital Signs: Last Vital Signs Temp 96.7 F L 03/01/24 08:00 Pulse 90 03/01/24 09:45 Resp 17 03/01/24 08:00 BP 152/81 H 03/01/24 09:45 Pulse Ox 97 03/01/24 08:00 Laboratory: Laboratory Last Values WBC 10.00 thou/uL (4.3-10.9) 02/28/24 05:12 RBC 4.45 M/uL (4.33-5.43) 02/28/24 05:12 Hgb 10.0 g/dL (13.6-17.9) L 02/28/24 05:12 Hct 31.9 % (39.6-49.0) L 02/28/24 05:12 MCV 71.8 fL (80-100) L 02/28/24 05:12 MCH 22.5 pg (27.0-35.0) L 02/28/24 05:12 MCHC 31.3 g/dL (32.0-36.0) L 02/28/24 05:12 RDW 21.3 % (12.1-15.2) H 02/28/24 05:12 Plt Count 309 thou/uL (152-406) 02/28/24 05:12 MPV 8.8 fL (7.6-11.3) 02/28/24 05:12 Neutrophils % 61.9 % (41.7-73.7) 02/28/24 05:12 Lymphocytes % 22.4 % (15.3-44.8) 02/28/24 05:12 Monocytes % 7.9 % (3.3-12.3) 02/28/24 05:12 Eosinophils % 6.6 % (0-4.4) H 02/28/24 05:12 Basophils % 1.2 % (0-1.3) 02/28/24 05:12 Absolute Neutrophils 6.2 K/uL (1.8-8.0) 02/28/24 05:12 Segmented Neutrophils 61 % (40-80) 02/28/24 05:12 Band Neutrophils 1 % (0-1) 02/28/24 05:12 Absolute Lymphocytes 2.3 K/uL (0.7-4.9) 02/28/24 05:12 Lymphocytes 19 % (15-42) 02/28/24 05:12 Monocytes 9 % (0-10) 02/28/24 05:12 Absolute Monocytes 0.8 K/uL (0.1-1.3) 02/28/24 05:12 Eosinophils 5 % (0-3) H 02/28/24 05:12 Absolute Eosinophils 0.7 K/uL (0-0.5) H 02/28/24 05:12 Absolute Basophils 0.1 K/uL (0-0.5) 02/28/24 05:12 Metamyelocytes 3 % (0-0) H 02/28/24 05:12 Myelocytes 1 % (0-0) H 02/28/24 05:12 Atypical Lymphocytes 1 % 02/28/24 05:12 Platelet Estimate Adeq 02/28/24 05:12 Anisocytosis 1+ 02/28/24 05:12 Morphology Comment Noted (NOT SEEN) 02/28/24 05:12 Sodium 143 mEq/L (136-145) 02/28/24 05:12 Potassium 3.8 mEq/L (3.5-5.1) 02/28/24 05:12 Chloride 118 mEq/L (98-107) H 02/28/24 05:12 Carbon Dioxide 23 mEq/L (21-32) 02/28/24 05:12 Anion Gap 5.8 mEq/L (5.0-15.0) 02/28/24 05:12 BUN 18 mg/dL (7-18) 02/28/24 05:12 Creatinine 0.91 mg/dL (0.70-1.30) 02/28/24 05:12 Est GFR (CKD-EPI) 91 ml/min (=/>90) 02/28/24 05:12 Glucose 110 mg/dL (74-106) H 02/28/24 05:12 POC Glucose 105 mg/dL (65-120) 03/01/24 12:33 Calcium 8.9 mg/dL (8.5-10.1) 02/28/24 05:12 Magnesium 1.9 mg/dL (1.6-2.4) 02/28/24 05:12 Albumin 2.5 g/dL (3.4-5.0) L 02/28/24 05:12 Prealbumin 14.3 mg/dL (20-40) L 02/28/24 05:12 Urine Color Light-yellow (Yellow) 02/27/24 14:40 Urine Clarity Clear (Clear) 02/27/24 14:40 Urine pH 5.5 (5.0-7.0) 02/27/24 14:40 Ur Specific Connelly 1.010 (1.005-1.030) 02/27/24 14:40 Glucose (UA)(Auto) 4+ (over) (Negative) H 02/27/24 14:40 Urine Ketones Negative (Negative) 02/27/24 14:40 Urine Blood Negative (Negative) 02/27/24 14:40 Urine Nitrite Negative (Negative) 02/27/24 14:40 Urine Bilirubin Negative (Negative) 02/27/24 14:40 Urine Urobilinogen Normal (Normal) 02/27/24 14:40 Ur Leukocyte Esterase Negative Carina/uL (Negative) 02/27/24 14:40 Urine RBC <5 /HPF (None Seen) 02/27/24 14:40 Urine WBC <5 /HPF (<5) 02/27/24 14:40 Ur Squamous Epith Cells None seen /HPF (None Seen) 02/27/24 14:40 U Non-Squamous Epi Cells <5 /HPF (None Seen) 02/27/24 14:40 Urine Bacteria <20 /HPF (<20) 02/27/24 14:40 Hyaline Casts 0-5 /LPF (None Seen) 02/27/24 14:40 Urine Mucus Slight /HPF (None Seen) 02/27/24 14:40 Urine Culture Reflexed Not needed 02/27/24 14:40 Urine Total Protein Trace (Negative) H 02/27/24 14:40 Weight: 186 lb Wound Present: No Closed Surgical Incision Present: No Negative Pressure Wound Therapy Present: No Physician Update: Labs are stable. Pain is managed. SLUMS 23, showing improvement with speech. 3/4 STG and 0/4 LTG due to poor short term memory. Independent with supine to sit. RW 150' supervision. STG 3/4. STG with OT is 2/5. Setup for lower body dressing and foot wear. Summary: Patient's care plan and computer terminal operator goals have been reviewed and revised as necessary. Please see the Rehabilitation Signature page for all necessary signatures.
--- NOTE | 2024-03-02 11:03 | PN ---
Date of Progress Note: 03/02/2024 Subjective: The patient was seen this morning for followup. No new complaints or problems reported by patient. Lying in bed, not in any distress. His was with him at bedside. The patient had 1 episode of diarrhea last night and she believes it is because of type of food he ate yesterday. No more problem with diarrhea after that. No abdominal pain. No nausea, no vomiting. Objective: Vital Signs: Reviewed. HEENT: Unremarkable. Lungs: Clear to auscultation: Heart: Sounds normal. Abdomen: Soft. Bowel sounds normal. No guarding, rigidity, tenderness, distention. Extremities: No leg edema. Impression: 1.Type 2 diabetes mellitus. 2.Chronic anticoagulation therapy. 3.History of pulmonary embolism. 4.Hypertension. 5.Hyperlipidemia. Plan: We will go ahead and continue current medical management. The patient's did bring copy o f discharge summary and partial report on Hematology consultation from June 2022 when he was admi tted to [facility] in [place] for pulmonary embolism. On basis of this available report, it is not clear if patient will need to be on lifelong anticoagulation therapy or not, so after reviewin g all his reports, I have advised the patient's that we definitely need to pursue with outpatien t hematological consultation and we will assist him with that, but at the same time, the patient can reduce the dose of Eliquis from 5 mg 2 times a day to 2.5 mg 2 times a day as a maintenance dose until further decision is made by sander and buffer. I will see him tomorrow for gina terry ACA/NURIA Voice ID: [id number] Report ID: [id number]
[2024-03-03] MEDS: METOPROLOL TAR 50 MG TAB PO SCH (11:36)
--- NOTE | 2024-03-03 12:18 | PN ---
Date of Progress Note: 03/03/2024 Subjective: The patient was seen this morning for followup. No new complaints or problems reported by patient. He was lying in bed, not in distress. His was present with him. Objective: Vital Signs: Reviewed. HEENT: Unremarkable. Lungs: Clear to auscultation. Heart: Sounds normal. Abdomen: Soft. Bowel sounds normal. No guarding, rigidity, tenderness, distention. Extremities: No leg edema. Impression: 1.Type 2 diabetes mellitus. 2.Hypertension. 3.Hyperlipidemia. 4.Benign prostatic hypertrophy. Plan: We will go ahead and continue current medication. The patient's fingerstick blood sugar readi ngs reviewed, at [facility], current dose has helped to control his diabetes very well. We will contin ue his tamsulosin. Continue his statin therapy and I will see him tomorrow for followup. I have pre pared his discharge medication list and instructions and given a copy to patient's and I have go ne over this details with both of them today. ERIN/MODL Voice ID: [id number] Report ID: [id number]
[2024-03-03] MEDS ORDERED: METOPROLOL TAR 50 MG TAB PO SCH (20:00)
[2024-03-03] MEDS: ROSUVASTATIN 10 MG TAB PO SCH (20:22)
[2024-03-04 06:18] LABS: Anion Gap 7.8 mEq/L (5.0-15.0); Potassium 3.8 mEq/L (3.5-5.1)
[2024-03-04 06:24] LABS: Absolute Basophils 0.1 K/uL (0-0.5); Absolute Eosinophils 4.6 K/uL (0-0.5); Absolute Lymphocytes (CBC) 2.2 K/uL (0.7-4.9); Absolute Monocytes 0.5 K/uL (0.1-1.3); Absolute Neutrophil 6.8 K/uL (1.8-8.0); Basophils % 0.8 % (0-1.3); Eosinophils % 32.3 % (0-4.4); Hematocrit 32.4 % (39.6-49.0); Hemoglobin 9.9 g/dL (13.6-17.9); Lymphocytes % 15.2 % (15.3-44.8); MCH 22.2 pg (27.0-35.0); MCHC 30.6 g/dL (32.0-36.0); MCV 72.4 fL (80-100); MPV 8.6 fL (7.6-11.3); Monocytes % 3.8 % (3.3-12.3); Neutrophils % 47.9 % (41.7-73.7); Platelets 314 thou/uL (152-406); RBC Red Blood Cell Count 4.47 M/uL (4.33-5.43); Red Cell Distribution Width 21.7 % (12.1-15.2)
[2024-03-04 07:32] LABS: Blood Morphology Comment NOT SEEN (NOT SEEN); Differential Total Cells Count 100; Eosinophils 35 % (0-3); Lymphocytes 15 % (15-42); Monocytes 3 % (0-10); Platelet Estimate ADEQ; Segmented Neutrophils 47 % (40-80)
[2024-03-04 10:02] LABS: Specific Gravity 1.007 (1.005-1.030); Sqamous Epithelial None Seen /HPF (None Seen); Urine Bacteria None Seen /HPF (<20); Urine Bilirubin NEGATIVE (Negative); Urine Blood Negative (Negative); Urine Clarity Clear (Clear); Urine Color Light-Yellow (Yellow); Urine Crystals Unidentified Few /HPF (None Seen); Urine Culture Reflex Order NOT NEEDED; Urine Glucose NEGATIVE (Negative); Urine Ketones NEGATIVE (Negative); Urine Microscopic Reflex YN ORDER UMIC; Urine Nitrite NEGATIVE (Negative); Urine Protein 1+ (Negative); Urine RBC <5 /HPF (None Seen); Urine Urobilinogen Normal (Normal); Urine WBC <5 /HPF (<5); Urine Yeast (Budding) Trace /HPF (None Seen)
--- NOTE | 2024-03-04 20:03 | PN ---
Date of Progress Note: 03/04/2024 Subjective: The patient was seen this morning for followup. No new complaints or problems reported by the patient, lying in bed, not in distress. Denies any complaints this morning. Objective: Vital Signs: Reviewed. HEENT: Unremarkable. Lungs: Clear to auscultation. Heart: Sounds normal. Abdomen: Soft. Bowel sounds normal. No guarding, rigidity, tenderness, distention. Extremities: No leg edema. Laboratory Data: White count 14.3, hemoglobin 9.9, platelets 314. Sodium 142, potassium 3.8, chlori de 114, bicarb 24, BUN 12, creatinine 0.87, glucose 111. Impression: 1.Leukocytosis. 2.Anemia. 3.Type 2 diabetes mellitus. 4.Hypertension. Plan: We will go ahead and get a chest x-ray done today and urinalysis. The patient is afebrile, do es not have any signs and symptoms of any infection, but we will look for any occult infection that m ight explain this leukocytosis problem. We will repeat blood work tomorrow morning. The patient is scheduled to go home tomorrow. We will continue his current antihypertensive medication and for diabetes, he takes Mounjaro injection once a week and no need for any further intervention. I will s ee him tomorrow morning for followup. ERIN/MODL Voice ID: [id number] Report ID: [id number]
--- NOTE | 2024-03-04 20:12 | PN ---
Date of Progress Note: 03/04/2024 Time Of Service: 1:15 p.m. Subjective: Mr. Sanches is sitting in a chair beside his bed. actually is not in the room at the time I saw him, but he is very happy and looking out the window with his therapy and progress. Henry peck has no new complaints. Review of Systems: No fevers, chills, nausea, vomiting, myalgias, arthralgias. No other complaints. Physical Examination: Vital Signs: Blood pressure is 160/79, pulse 74, respiratory rate 18, temperature 97.4, oxygen satur ation 99%. General: Mr. Sanches again is resting comfortably in his chair. He is in no significant distress. Neuro: He has no focal neurologic deficits. Good air movement bilaterally. Laboratory Studies: White blood cell count did increase from 10 to 14.3, neutrophils decreased from 61.9 to 47.9, hemoglobin 9.9, hematocrit 32.4, platelets 314. Sodium 142, potassium 3.8, chloride 11 4, carbon dioxide 24, BUN 12, creatinine 0.87, glucose ranged from 109 to 117, calcium 8.7. There is a repeat urinalysis done for the elevated white blood cell count, did show trace budding yeast and 1 + protein, but was otherwise normal. X-ray/imaging: No new x-rays or imaging. Medications: His medications have been reviewed. He is followed by Dr. Del Angel for that. He is on Lop ressor, Crestor, Flomax, zinc oxide, has Levaquin 250 mg twice daily for potential urinary tract infe ction, Pepcid 20 mg daily, Glucerna 237 mL twice daily, Eliquis 2.5 mg twice daily, Norvasc 2.5 mg da jose, and extra-strength Tylenol 500 mg every 6 hours. Progress Made With Physical, Occupational, And Speech Therapy: With physical therapy today, he ambul ated with a rolling walker 600 feet, 375 feet, and 250 feet independently. He was up and down 15 maura ps independently with bilateral handrails. Multiple [id number] transfers done independently. Supi ne-to-sit transfers done independently. With his occupational therapy, independent with bathing, upp er and lower body dressing, donning and doffing footwear, getting off the toilet, all independent, pe rformed all activities of daily living independently and safely. He is ready for discharge home to [facility] outpatient physical therapy. With speech, maintained a BIMS score of 15 and improved his SLU MS score from 23 to 27 and indicating that cognitive and speech therapy is no longer needed. Assessment: Mr. Sanches is a 68-year-old patient in rehabilitation unit with acute renal insufficie ncy that has been stabilized. He has multiple comorbid conditions that are managed stably by primary care physician, Dr. Del Angel. He has done excellent with physical, occupational, and speech therapy. Plan: 1.Until discharge, that will be in the morning, he will continue with physical, occupational, and sp eech therapy. 2.He will continue with all his comorbid condition medications which are managed by Dr. Del Angel. 3.He will be discharged and follow up with Dr. Del Angel as scheduled and have outpatient physical therap y start. AYAH/NURIA Voice ID: [id number] Report ID: [id number]
[2024-03-05 05:31] LABS: Absolute Basophils 0.2 K/uL (0-0.5); Absolute Eosinophils 4.6 K/uL (0-0.5); Absolute Lymphocytes (CBC) 2.8 K/uL (0.7-4.9); Absolute Monocytes 0.7 K/uL (0.1-1.3); Absolute Neutrophil 6.6 K/uL (1.8-8.0); Hemoglobin 10.1 g/dL (13.6-17.9); MCH 22.8 pg (27.0-35.0); MCHC 31.5 g/dL (32.0-36.0); MCV 72.3 fL (80-100); Monocytes % 4.8 % (3.3-12.3); Neutrophils % 44.2 % (41.7-73.7); Platelets 300 thou/uL (152-406); RBC Red Blood Cell Count 4.43 M/uL (4.33-5.43); Red Cell Distribution Width 22.3 % (12.1-15.2)
[2024-03-05 06:36] VITALS: BP 148/77; TEMP 96.8
[2024-03-05 08:03] LABS: Albumin 2.5 g/dL (3.4-5.0); Albumin/Globulin Ratio 0.7 (1.1-1.8); Anion Gap 7.3 mEq/L (5.0-15.0); Bilirubin Total 0.2 mg/dL (0.2-1.0); Globulin 3.5 g/dL (2.3-3.5); Potassium 4.3 mEq/L (3.5-5.1)
--- NOTE | 2024-03-05 08:07 | RAD REPORT ---
Procedure: Chest Pa And Lat (2 Views) History: Leukocytosis Comparison: January 2024 Findings: The lungs appear clear of acute infiltrate. No significant pleural effusion noted. The heart is normal size. IMPRESSION: No acute abnormality is displayed.
--- NOTE | 2024-03-05 23:35 | DS ---
Date of Discharge: 03/05/2024 Disposition: Discharged to go home. Physical Examination: HEENT: Unremarkable. Lungs: Clear to auscultation. Heart: Sounds normal. Abdomen: Soft. Bowel sounds normal. No guarding, rigidity, tenderness, distention. Extremities: No leg edema. Skin: No evidence of any rash or any abnormal redness anywhere on his body and I have examined him f rom head-to-toe today for any signs of infection and was not able to identify any abnormality or any evidence of infection. Discharge Medications And Instructions: 1.Change Eliquis 2.5 mg take 1 tablet by mouth 2 times a day. 2.Tamsulosin 0.4 mg daily. 3.Rosuvastatin 40 mg daily at bedtime. 4.Famotidine 40 mg daily at bedtime. 5.Mounjaro 10 mg subcutaneous injection once a week. 6.Amlodipine 2.5 mg p.o. daily in morning. 7.Metoprolol 50 mg 2 times a day. 8.Vitamin D 5000 units daily. 9.Follow up at my office next week and I have communicated with about scheduling appointment to see me next week on Monday and bring into office day before appointment for blood work which will b e CBC and basic metabolic panel. 10.Stop Farxiga, ezetimibe, fenofibrate, furosemide, Toujeo, insulin, losartan, and metformin. Laboratory Data: Urinalysis from yesterday was normal. Last CBC from 03/05/2024, which is this morn ing, white count 14.9, hemoglobin 10.1, platelets 300. Yesterday, white count 14.3, hemoglobin 9.9, and platelet count 314. On 02/28/2024, WBC was 10, hemoglobin 10, platelets 309. For chemistry yest erday, sodium 142, potassium 3.8, chloride 114, bicarb 24, BUN 12, creatinine 0.87, glucose 111. Tod ay chemistry profile was unremarkable including liver function tests were normal. Chest x-ray from t nikolai, no acute cardiopulmonary changes. Hospital Course: This is a 68-year-old pleasant male patient, who was admitted to rehab floor after his admission to medical floor. The patient had generalized weakness and debility. He received phys ical therapy under guidance of Dr. Patel and participated well and improved very well to the exten t that today he was able to go home in improved and stable condition. His medications were continued per order during this hospitalization. For diabetes, he continued to receive Mounjaro injection. H is diarrhea problem that he had when he first came into the hospital has resolved. He is trying to k eep himself well hydrated and I have encouraged him to drink 60 ounces of water daily. The patient w as noted to have slightly elevated WBC count yesterday and he does not have any symptoms indicating a ny infection, so we did repeat another WBC count today which was also slightly elevated. Once again, he has remained afebrile and has no signs or symptoms of any infection and today his head-to-toe exa m was unremarkable and I was not able to detect any evidence of any infection anywhere. I have commu nicated with the patient's about all these details and informed her that if she notices any new symptoms at home, she should contact me right away. Otherwise, I am planning to see him next week on Monday which is a week from today and on Monday, which will be day before his appointment, he shoul d come to office and get a blood work done, so we can follow up on his blood count and electrolytes a long with the renal function. A copy of discharge medication and instruction was given to the mable romo's personally by me and on original discharge instruction, famotidine was listed as 20 mg but i t should be 40 mg daily at bedtime, and when I talked to on phone today, she was made aware of t hat as well. Final Diagnoses: 1.Acute kidney injury. 2.Volume depletion. 3.Generalized weakness. 4.Debility. 5.Acute gastroenteritis. 6.Vascular dementia. 7.Type 2 diabetes mellitus. 8.Hypertension. 9.Hyperlipidemia. 10.Coronary artery disease. 11.Gastroesophageal reflux disease. 12.Benign prostatic hypertrophy with lower urinary tract symptoms. 13.Osteoarthritis, multiple sites. 14.Anemia, unspecified. 15.Leukocytosis. Total time spent today 45 minutes. ERIN/MODL Voice ID: [id number] Report ID: [id number]
== END 2024-03-05 12:30 | disposition home or self-care (01) | DRG 948 ==
LOC: 5TH 11:30
PROVIDERS: ADMIT Internal Medicine; ATTEND Psychiatry & Neurology Neurology with Special Qualifications in Child Neurology
DX: R53.81 Other malaise (principal); N17.9 Acute kidney failure, unspecified; F01.50 Vascular dementia, unspecified severity, without behavioral disturbance, psychotic disturbance, mood disturbance, and anxiety; E78.5 Hyperlipidemia, unspecified; I25.10 Atherosclerotic heart disease of native coronary artery without angina pectoris; K21.9 Gastro-esophageal reflux disease without esophagitis; N40.0 Benign prostatic hyperplasia without lower urinary tract symptoms; M47.816 Spondylosis without myelopathy or radiculopathy, lumbar region; M47.812 Spondylosis without myelopathy or radiculopathy, cervical region; M15.9 Polyosteoarthritis, unspecified; E87.6 Hypokalemia; D64.9 Anemia, unspecified; E11.22 Type 2 diabetes mellitus with diabetic chronic kidney disease; I12.9 Hypertensive chronic kidney disease with stage 1 through stage 4 chronic kidney disease, or unspecified chronic kidney disease; N18.9 Chronic kidney disease, unspecified; K52.9 Noninfective gastroenteritis and colitis, unspecified; Z79.01 Long term (current) use of anticoagulants; Z86.711 Personal history of pulmonary embolism
CPT/HCPCS: 36415; 71046; 80048; 80053; 81001; 82040; 82947; 83735; 84134; 85025; 87086; 87088; 92523; 97110; 97116; 97129; 97161; 97165; 97530; 97542; J2001

== ENCOUNTER 2024-09-03 15:33 | Inpatient (IN) | payer OTHER, MEDICARE ==
[2024-09-03 16:54] LABS: Absolute Basophils 0.1 K/uL (0-0.5); Absolute Eosinophils 0.8 K/uL (0-0.5); Absolute Lymphocytes (CBC) 1.8 K/uL (0.7-4.9); Absolute Monocytes 0.6 K/uL (0.1-1.3); Absolute Neutrophil 5.5 K/uL (1.8-8.0); Basophils % 1.5 % (0-1.3); Eosinophils % 9.4 % (0-4.4); Hematocrit 46.5 % (39.6-49.0); Hemoglobin 15.8 g/dL (13.6-17.9); Lymphocytes % 20.1 % (15.3-44.8); MCH 29.5 pg (27.0-35.0); MCV 86.7 fL (80-100); MPV 8.9 fL (7.6-11.3); Monocytes % 6.7 % (3.3-12.3); Neutrophils % 62.3 % (41.7-73.7); Nucleated Red Blood Cells % 0.1 % (0-0); Platelets 234 thou/uL (152-406); RBC Red Blood Cell Count 5.37 M/uL (4.33-5.43); Red Cell Distribution Width 14.9 % (12.1-15.2)
[2024-09-03 16:59] LABS: PT Prothrombin Time 13.7 SECONDS (10-13.0); PTT, Activated Partial Thromb 31.7 SECONDS (27.2-37.4); Protime INR 1.21
[2024-09-03 17:03] LABS: Anion Gap 12.6 mEq/L (5.0-15.0); Potassium 3.6 mEq/L (3.5-5.1); Troponin High Sensitivity 10.7 pg/mL (<58.9)
--- NOTE | 2024-09-03 17:56 | RAD REPORT ---
Procedure: Chest Single View HISTORY: Weakness and slurred speech COMPARISON: 2023 FINDINGS: Approximately 1 cm right upper lobe nodule No significant pleural effusion noted. The heart is normal size. IMPRESSION: 1 cm right upper lobe nodule without significant change from March 2024. Please refer to the CT ch est report for additional discussion
--- NOTE | 2024-09-03 18:14 | RAD REPORT ---
EXAM: CT brain without contrast HISTORY: Slurred speech COMPARISON: 2023 TECHNIQUE: Multiple contiguous axial images were obtained and a CT of the brain without contrast.. Sagittal and coronal reconstruction performed. Automated exposure control, adjustment of the mA and/or kV according to patient size, and/or iterative reconstruction. Unless otherwise specified, incidental f indings do not require dedicated imaging follow-up FINDINGS: An intracranial bleed is not seen Ventricles are normal caliber No extra-axial fluid collection noted Moderate low-density within periventricular, deep and subcortical white matter without significant ch tulio. Small old lacunar infarction left thalamus. No fluid within the visualized sinuses or mastoids noted. IMPRESSION: No acute intracranial abnormality noted. If the patient continues to have symptoms to suggest an acute intracranial abnormality then MRI of th e brain would be recommended.
[2024-09-03] MEDS ORDERED: APIXABAN 5 MG TABLET ONE (18:24)
[2024-09-03] MEDS ORDERED: NA CHLORIDE 0.9% 500 ML ONE (18:25)
[2024-09-03] MEDS ORDERED: FOLIC ACID 5 MG/ML VIAL ONE (18:25)
--- NOTE | 2024-09-03 18:26 | EDPHYS ---
Physician Documentation [facility] Name: Marc Sanches Age: 69 yrs Sex: Male : 1955 Arrival Date: 09/03/2024 Time: 15:33 Bed 2 Private MD: ED Physician Jesse Ambrocio HPI: 09/03 17:16 This 69 yrs old Male presents to ER via EMS with complaints of General Weakness, rn Slurred Speech. 17:16 The patient presents to the emergency department with weakness of the right upper rn extremity, right lower extremity, right side of the face, a speech or higher order brain function problem. Onset: The symptoms/episode began/occurred 5 day(s) ago. Current symptoms:. The patient has experienced a previous episode. Patient reports generalized weakness with increased weakness of the right arm and right leg. Has had a stroke in the past but left-sided deficits. Spouse reports he usually can ambulate without assistance and for the last few days has required a lot of assistance to stand and get around. Family also reports slurred speech and facial droop that were not present before. No head injury. Taking lower dose Eliquis after previous stroke. Denies any bleeding. Historical: - Allergies: 15:52 PENICILLINS; ll1 - PMHx: 15:52 Cerebrovascular accident; Diabetes - IDDM; Chronic obstructive lung disease; pulmonary ll1 embolus; High Cholesterol; Hypertension; - Immunization history:: Adult Immunizations up to date. - Infectious Disease History:: Denies. - Family history:: not pertinent. - Hospitalizations: : No recent hospitalization is reported. - Social history:: Smoking status: Patient denies any tobacco usage or history of. ROS: 17:16 Constitutional: Negative for fever, chills, and weight loss, Neck: Negative for injury, rn pain, and swelling, Cardiovascular: Negative for chest pain, palpitations, and edema, Respiratory: Negative for shortness of breath, cough, wheezing, and pleuritic chest pain, Abdomen/GI: Negative for abdominal pain, nausea, vomiting, diarrhea, and constipation, Back: Negative for injury and pain, MS/Extremity: Negative for injury and deformity, Skin: Negative for injury, rash, and discoloration, Neuro: Positive for right sided weakness, slurred speech and facial droop Exam: 17:16 Constitutional: This is a well developed, well nourished patient who is awake, alert, rn and in no acute distress. Head/Face: Normocephalic, atraumatic. ENT: Dry mucous membranes Cardiovascular: Regular rate and rhythm . No pulse deficits. Respiratory: No increased work of breathing, no retractions or nasal flaring. Abdomen/GI: Soft, non-tender Neuro: Awake and alert, GCS 15, oriented to person, place, time, and situation. Right lower facial droop present. Right upper and right lower extremity drift without touching bed. 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 Vital Signs: 15:58 BP 121 / 71; Pulse 81; Resp 18; Temp 98; Pulse Ox 95% on R/A; Weight 86.18 kg; Height 5 ll1 ft. 10 in. ; Pain 0/10; 18:07 BP 112 / 65; Pulse 77; Resp 18; Pulse Ox 97% ; ll1 19:34 BP 147 / 92; Pulse 67; Resp 18; Temp 97.1; Pulse Ox 98% on R/A; Pain 0/10; br2 15:58 Body Mass Index 27.26 (86.18 kg, 177.8 cm) ll1 15:58 Pain Scale: Adult ll1 19:34 Pain Scale: Adult br2 NIH Stroke Scale Scores: 17:16 NIHSS Score: 4 rn 18:09 NIHSS Score: 4 ll1 MDM: 16:01 Medical Screening Exam initiated samy 18:24 Data reviewed: vital signs, nurses notes, lab test result(s), radiologic studies, CT rn scan, plain films, and as a result, I will admit patient. Consideration of Admission/Observation Patient was admitted/placed on observation. Escalation of care including admission/observation considered. Management of patient was discussed with the following: Primary Care Provider: As discussed with Dr. Del Angel, request 5 mg Eliquis, admission to hospital and neurology consultation with MRI brain.. Care significantly affected by the following chronic conditions: Diabetes, Hypertension. Counseling: I had a detailed discussion with the patient and/or guardian regarding the historical points, exam findings, and any diagnostic results supporting the discharge/admit diagnosis, lab results, radiology results, the need for further work-up and treatment in the hospital. Response to treatment: There is no appreciated change of the patient's symptoms at this time. 09/03 16:12 Order name: Basic Metabolic Panel; Complete Time: 17:10 1 09/03 16:12 Order name: CBC with Diff; Complete Time: 17:10 1 09/03 16:12 Order name: High Sensitivity Troponin; Complete Time: 17:10 [facility] 09/03 16:12 Order name: Protime (+inr); Complete Time: 17:10 1 09/03 16:12 Order name: Ptt, Activated; Complete Time: 17:10 [facility] 09/03 16:12 Order name: Stroke CXR 1 View; Complete Time: 18:18 [facility] 09/03 16:27 Order name: Head Brain Wo Cont; Complete Time: 18:18 [facility] 09/03 16:12 Order name: EKG; Complete Time: 16:12 [facility] 09/03 18:30 Order name: CONS Physician Consult [facility] 09/03 16:12 Order name: Accucheck; Complete Time: 16:43 [facility] 09/03 16:12 Order name: Cardiac monitoring; Complete Time: 16:43 [facility] 09/03 16:12 Order name: EKG - Nurse/Tech; Complete Time: 16:43 [facility] 09/03 16:12 Order name: IV Saline Lock; Complete Time: 16:12 [facility] 09/03 16:12 Order name: Labs collected and sent; Complete Time: 16:12 [facility] 09/03 16:12 Order name: NPO; Complete Time: 16:12 [facility] 09/03 16:12 Order name: O2 Per Protocol; Complete Time: 16:12 [facility] 09/03 16:12 Order name: O2 Sat Monitoring; Complete Time: 16:12 [facility] 09/03 16:12 Order name: Stroke Swallow Screen; Complete Time: 16:30 ll1 Administered Medications: 18:32 Drug: Eliquis PO 5 mg PO once Route: PO; ll1 18:33 Drug: foLIC Acid IVPB 1 mg IVPB once Route: IVPB; Site: right forearm; ll1 18:33 Drug: NS 0.9% IV 500 ml 500 ml IV at 1 bolus once; to be given as a bolus over 30 ll1 minutes Volume: 500 ml; Route: IV; Rate: 1 bolus; Site: right forearm; Disposition Summary: 09/03/24 18:25 Hospitalization Ordered Notes: Hospitalization Status: Inpatient Admission rn Provider: Del Angel, A rn Location: Telemetry/MedSurg (Inpatient) rn Condition: Stable rn Problem: new rn Symptoms: are unchanged rn Bed/Room Type: Standard rn Room Assignment: 225(09/03/24 19:07) rv1 Diagnosis - Cerebral infarction, unspecified rn - Weakness rn - Slurred speech rn Forms: - Medication Reconciliation Form rn - SBAR form rn - Leadership Thank You Letter rn NIH Stroke Scale - NIH Stroke Score Date: 09/03/2024 Time: 17:16 Total Score = 4 10. Dysarthria (speech clarity - read or repeat words) - 1(Mild to Moderate) 11. Extinction and Inattention (visual/tactile/auditory/spatial/personal) - 0(No abnormality) 1a. Level of Consciousness (LOC) - 0(Alert) 1b. Level of Consciousness (LOC) (Month \T\ Age) - 0(Both) 1c. LOC Commands (Open \T\ Closes Eyes/Pin Inserter Regulator) - 0(Both) 2. Best Gaze (Lateral Gaze Paresis) - 0(Normal) 3. Visual Field Loss - 0(No visual loss) 4. Facial Palsy - 1(Minor Paralysis) 5a. Left Arm: Motor (10-second hold) - 0(No drift) 5b. Right Arm: Motor (10-second hold) - 1(Drift) 6a. Left Leg: Motor (5-second hold - always test supine) - 0(No drift) 6b. Right Leg: Motor (5-second hold - always test supine) - 1(Drift) 7. Limb Ataxia (finger/nose \T\ heel/haro - test with eyes open) - 0(Absent) 8. Sensory Loss (pinprick arms/legs/face) - 0(Normal) 9. Best Language: Aphasia (description/naming/reading) - 0(No aphasia) Initials: rn NIH Stroke Scale - NIH Stroke Score Date: 09/03/2024 Time: 18:09 Total Score = 4 10. Dysarthria (speech clarity - read or repeat words) - 1(Mild to Moderate) 11. Extinction and Inattention (visual/tactile/auditory/spatial/personal) - 0(No abnormality) 1a. Level of Consciousness (LOC) - 0(Alert) 1b. Level of Consciousness (LOC) (Month \T\ Age) - 0(Both) 1c. LOC Commands (Open \T\ Closes Eyes/Pin Inserter Regulator) - 0(Both) 2. Best Gaze (Lateral Gaze Paresis) - 0(Normal) 3. Visual Field Loss - 0(No visual loss) 4. Facial Palsy - 1(Minor Paralysis) 5a. Left Arm: Motor (10-second hold) - 0(No drift) 5b. Right Arm: Motor (10-second hold) - 1(Drift) 6a. Left Leg: Motor (5-second hold - always test supine) - 0(No drift) 6b. Right Leg: Motor (5-second hold - always test supine) - 1(Drift) 7. Limb Ataxia (finger/nose \T\ heel/haro - test with eyes open) - 0(Absent) 8. Sensory Loss (pinprick arms/legs/face) - 0(Normal) 9. Best Language: Aphasia (description/naming/reading) - 0(No aphasia) Initials: ll1 Signatures: Dispatcher [employer] EDMS Zoran Cox MD MD cha Nieto, Roman, MD MD rn Lewis, Lynsay, RN RN 1 Nelly Garcia rv1 Corrections: (The following items were deleted from the chart) 16:12 16:12 BASIC METABOLIC PANEL+C.LAB.BRZ ordered. EDMS EDMS 16:12 16:12 CBC+H.LAB.BRZ ordered. EDMS EDMS 16:12 16:12 Troponin High Sensitivity+C.LAB.BRZ ordered. EDMS EDMS 16:12 16:12 PROTIME (+INR)+COAG.LAB.BRZ ordered. EDMS EDMS 16:12 16:12 PTT, ACTIVATED+COAG.LAB.BRZ ordered. EDMS EDMS 16:27 16:12 CT-STROKE BRAIN W/O CONTRAST+CT.RAD.BRZ ordered. EDMS EDMS 19:07 18:25 rn rv1
--- NOTE | 2024-09-03 18:26 | ER ---
Nurse's Notes [facility] Name: Marc Sanches Age: 69 yrs Sex: Male : 1955 Arrival Date: 09/03/2024 Time: 15:33 Bed 2 Private MD: Diagnosis: Cerebral infarction, unspecified;Weakness;Slurred speech Presentation: 09/03 15:53 Coronavirus screen: Client denies travel out of the [place] in the last 14 days. At this ll1 time, the client does not indicate any symptoms associated with coronavirus-19. Ebola Screen: Patient denies travel to an Ebola-affected area in the 21 days before illness onset. An acute neurological deficit is present. Initial Sepsis Screen: Does the patient meet any 2 criteria? No. Patient's initial sepsis screen is negative. Does the patient have a suspected source of infection? No. Patient's initial sepsis screen is negative. Risk Assessment: Do you want to hurt yourself or someone else? Patient reports no desire to harm self or others. Onset of symptoms was August 28, 2024. 15:53 Method Of Arrival: EMS ll1 15:53 Acuity: DEYSI 3 ll1 15:54 Chief complaint: Patient states: Weak, slurred speech, balance off Last known normal 6 ll1 days ago EMS states: fingerstick 250. Stroke Activation: Symptom onset > 6 hours Physician: ED Attending; Name: ; Notified At: ; Arrived At: Physician: Mid-Level Provider; Name: ; Notified At: ; Arrived At: Physician: [not used]; Name: ; Notified At: ; Arrived At: Physician: [not used]; Name: ; Notified At: ; Arrived At: Physician: [not used]; Name: ; Notified At: ; Arrived At: Historical: - Allergies: 15:52 PENICILLINS; ll1 - PMHx: 15:52 Cerebrovascular accident; Diabetes - IDDM; Chronic obstructive lung disease; pulmonary ll1 embolus; High Cholesterol; Hypertension; - Immunization history:: Adult Immunizations up to date. - Infectious Disease History:: Denies. - Family history:: not pertinent. - Hospitalizations: : No recent hospitalization is reported. - Social history:: Smoking status: Patient denies any tobacco usage or history of. Screenin:08 [facility] ED Fall Risk Assessment (Adult) History of falling in the last 3 months, ll1 including since admission Yes- fall prone (multiple falls) (3 pts) Confusion or Disorientation Yes (5 pts) Intoxicated or Sedated No (0 pts) Impaired Gait Yes (1 pt) Mobility Assist Device Used Yes (1 pt) Altered Elimination No (0 pt) Score/Fall Risk Level 3 or more points = High Risk Maintained a safe environment, Hourly rounding (assess needs \T\ fall precautionary measures) done. 18:09 Abuse screen: Denies threats or abuse. Nutritional screening: No deficits noted. ll1 Tuberculosis screening: No symptoms or risk factors identified. Assessment: 16:35 Reassessment: No changes from previously documented assessment. Patient and/or family ll1 updated on plan of care and expected duration. Pain level reassessed. 18:09 VAN Scoring: Visual Disturbance: No visual disturbance noted. [place] Swallow Protocol ll1 Exclusion Criteria: NPO for medical/surgical reason by provider order Yes Brief Cognitive Screen What is your name? Normal, Where are you right now? Normal, What year is it? Normal. Oral Mechanism Examination Facial Symmetry: Normal, Motion: Normal, Lip Closure: Normal, Result: FAIL MD Notified: Jesse Ambrocio MD. TNKase (Tenecteplase) Screening: Contraindications: Patient reports onset of signs and symptoms of stroke greater than 6 hours ago:. Pain: Denies pain. 18:11 [place] Swallow Protocol 3 oz Water Swallow Challenge:. ll1 18:48 Reassessment: chocked on water at end of swallowing Eliquis. Dr. Ambrocio informed. ll1 19:34 Reassessment: Patient and/or family updated on plan of care and expected duration. Pain br2 level reassessed. Patient states feeling better. Patient states symptoms have improved. Vital Signs: 15:58 BP 121 / 71; Pulse 81; Resp 18; Temp 98; Pulse Ox 95% on R/A; Weight 86.18 kg; Height 5 ll1 ft. 10 in. ; Pain 0/10; 18:07 BP 112 / 65; Pulse 77; Resp 18; Pulse Ox 97% ; ll1 19:34 BP 147 / 92; Pulse 67; Resp 18; Temp 97.1; Pulse Ox 98% on R/A; Pain 0/10; br2 15:58 Body Mass Index 27.26 (86.18 kg, 177.8 cm) ll1 15:58 Pain Scale: Adult ll1 19:34 Pain Scale: Adult br2 NIH Stroke Scale Scores: 17:16 NIHSS Score: 4 rn 18:09 NIHSS Score: 4 ll1 ED Course: 15:47 Patient arrived in ED. ld1 15:51 Arm band placed on Patient placed in an exam room, on a stretcher. ll1 15:54 Triage completed. ll1 15:58 Sammi Brown RN is Primary Nurse. ll1 16:00 Provided Education on: ER procedures and process. ll1 16:01 Zoran Cox MD is Attending Physician. [facility] 16:01 Attending Physician role handed off by Zoran Cox MD rn 16:01 Jesse Ambrocio MD is Attending Physician. rn 16:33 Initial lab(s) drawn, by me, sent to lab. Inserted saline lock: 20 gauge in right ll1 forearm, using aseptic technique. Blood collected. Flushed with 10 mL NS. 17:16 Stroke CXR 1 View In Process Unspecified. EDMS 17:42 Head Brain Wo Cont In Process Unspecified. EDMS 18:11 Patient has correct armband on for positive identification. Bed in low position. Call 1 light in reach. Client placed on continuous cardiac and pulse oximetry monitoring. NIBP monitoring applied. library monitor on. 18:25 Maria D Del Angel MD is Hospitalizing Provider. rn 18:49 Warm blanket given. Pillow given. Verbal reassurance given. cleaned of urine soaked ll1 depends. Bedding changed also, tolerated well . 19:26 Primary Nurse role handed off by Sammi Brown, RN rv1 20:09 No provider procedures requiring assistance completed. Patient admitted, IV remains in vc1 place. Administered Medications: 18:32 Drug: Eliquis PO 5 mg PO once Route: PO; ll1 18:33 Drug: foLIC Acid IVPB 1 mg IVPB once Route: IVPB; Site: right forearm; ll1 18:33 Drug: NS 0.9% IV 500 ml 500 ml IV at 1 bolus once; to be given as a bolus over 30 ll1 minutes Volume: 500 ml; Route: IV; Rate: 1 bolus; Site: right forearm; Medication: 18:11 VIS not applicable for this client. ll1 Outcome: 18:25 Decision to Hospitalize by Provider. rn 20:09 Admitted to Med/surg accompanied by nurse, via stretcher, room 225, Report called to vcAny Kincaid 20:09 Condition: stable 20:10 Patient left the ED. vc1 NIH Stroke Scale - NIH Stroke Score Date: 09/03/2024 Time: 17:16 Total Score = 4 10. Dysarthria (speech clarity - read or repeat words) - 1(Mild to Moderate) 11. Extinction and Inattention (visual/tactile/auditory/spatial/personal) - 0(No abnormality) 1a. Level of Consciousness (LOC) - 0(Alert) 1b. Level of Consciousness (LOC) (Month \T\ Age) - 0(Both) 1c. LOC Commands (Open \T\ Closes Eyes/Mechanism Inspector) - 0(Both) 2. Best Gaze (Lateral Gaze Paresis) - 0(Normal) 3. Visual Field Loss - 0(No visual loss) 4. Facial Palsy - 1(Minor Paralysis) 5a. Left Arm: Motor (10-second hold) - 0(No drift) 5b. Right Arm: Motor (10-second hold) - 1(Drift) 6a. Left Leg: Motor (5-second hold - always test supine) - 0(No drift) 6b. Right Leg: Motor (5-second hold - always test supine) - 1(Drift) 7. Limb Ataxia (finger/nose \T\ heel/haro - test with eyes open) - 0(Absent) 8. Sensory Loss (pinprick arms/legs/face) - 0(Normal) 9. Best Language: Aphasia (description/naming/reading) - 0(No aphasia) Initials: marysol NIH Stroke Scale - NIH Stroke Score Date: 09/03/2024 Time: 18:09 Total Score = 4 10. Dysarthria (speech clarity - read or repeat words) - 1(Mild to Moderate) 11. Extinction and Inattention (visual/tactile/auditory/spatial/personal) - 0(No abnormality) 1a. Level of Consciousness (LOC) - 0(Alert) 1b. Level of Consciousness (LOC) (Month \T\ Age) - 0(Both) 1c. LOC Commands (Open \T\ Closes Eyes/Mechanism Inspector) - 0(Both) 2. Best Gaze (Lateral Gaze Paresis) - 0(Normal) 3. Visual Field Loss - 0(No visual loss) 4. Facial Palsy - 1(Minor Paralysis) 5a. Left Arm: Motor (10-second hold) - 0(No drift) 5b. Right Arm: Motor (10-second hold) - 1(Drift) 6a. Left Leg: Motor (5-second hold - always test supine) - 0(No drift) 6b. Right Leg: Motor (5-second hold - always test supine) - 1(Drift) 7. Limb Ataxia (finger/nose \T\ heel/haro - test with eyes open) - 0(Absent) 8. Sensory Loss (pinprick arms/legs/face) - 0(Normal) 9. Best Language: Aphasia (description/naming/reading) - 0(No aphasia) Initials: ll1 Signatures: Dispatcher [employer] EDZoran Clark MD MD cha Nieto, Roman, MD MD rn Lewis, Lynsay, RN RN ll1 Jenny Huerta RN RN ld1 Rebecca Belle RN RN vc1 Nelly Garcia rv1 Yolis Garcia RN RN br2
[2024-09-03] MEDS: NA CHLORIDE 0.9% 1,000 ML IV SCH (21:49)
--- NOTE | 2024-09-03 22:05 | RAD REPORT ---
EXAMINATION: US CAROTID DUPLEX CLINICAL INDICATION: Right-sided weakness TECHNIQUE: Real-time grayscale, color flow and spectral Doppler sonographic images were obtained of t he extracranial carotid system using a linear transducer. COMPARISON: CTA neck 2023. FINDINGS: The velocity of the right internal carotid artery 59 cm/s The right ICA/CCA ratio normal The velocity left internal carotid artery 58 cm/s The left ICA/CCA ratio normal Plaque is present within the carotid bulbs and proximal internal carotid arteries Vertebral arteries demonstrate anterograde flow. No significant abnormality external carotid arteries Methods for NASCET criteria: mild stenosis, 0% to 49%; moderate, 50% to 69%; severe stenosis, 70% to 99% IMPRESSION: Plaque within the carotid bulbs and proximal internal carotid arteries bilaterally appear to result i n an approximately 40-45% stenosis.
--- NOTE | 2024-09-04 00:19 | HP ---
Date of Admission: 09/03/2024 Chief Complaint: Feeling weak and off balance. History Of Present Illness: This is a 69-year-old male patient who sees Dr. Patel on a regular ba sis. Saw him last week on Monday and at that time he added donepezil, which he started taking it. Ever since that time, he has not felt good. According to patient's , he has fallen down 2 times in last 2 days, but he is having increasing problem with weakness and having trouble maintaining his balance and after his 2 falls in last day to 2 days as of yesterday, also noted that he was havi ng weakness on the right side of his body. No trouble swallowing food, but also noted some trouble s wallowing liquids. No headache. No nausea, vomiting, fever. She brought him to emergency room [facility] with all these complaints and after he was evaluated, [facility] causing right-sided hemiparesis. I saw him in emergency room. was with him at [facility]. Physical Examination: Vital Signs: Height 5 feet inches, weight pounds. Temperature , pul se , respiratory rate , blood pressure , oxygen saturation . General: Awake, alert, oriented, not in distress. HEENT: Head atraumatic, normocephalic. Conjunctivae nonerythematous. Sclerae white. Mouth, no thr ush or edema noted. Ears/Nose, no mass, lesion, discharge noted. Neck: Supple. No JVD, lymph nodes, bruit, thyromegaly noted. Lungs: Bilateral good equal air entry. Clear to auscultation. No rhonchi. No rales. Heart: Normal heart sounds, no murmur or gallop. Abdomen: Soft, bowel sounds normal. No guarding, rigidity, tenderness, mass, hepatosplenomegaly, dis tention, or bruit noted. Extremities: No leg edema. No calf tenderness. Skin: The patient has bruising on his right anterior chest wall as well as lower center chest wall a jorge and some bruising on the left anterior knee and all these bruises appears probably 2-3 days old. Lymphatics: No lymph node enlargement in neck, supraclavicular, infraclavicular region. Neuro: No focal neurological deficit. Chest: Unremarkable. External Genitalia: Deferred. Rectal: Deferred. COMPLIANCE MGR: The patient has right-sided hemiparesis and right upper extremity and right lower extremity pow er is 4/5. Also, has very slight flattening of the right nasolabial fold. Laboratory Data: WBC 8.9, hemoglobin 15.8, platelets 234. Sodium 139, potassium 3.6, chloride 106, bicarb 24, BUN 19, creatinine 1.05, glucose 266. Troponin 10.7. Chest x-ray shows 1 cm right upper lobe nodule without any significant change from March 2024. CAT scan of the head was negative for any acute intracranial changes. Impression: 1. Stroke with right-sided hemiparesis. 2. Pulmonary nodule. 3. Type 2 diabetes mellitus. 4. Hypertension. 5. Hyperlipidemia. 6. Coronary artery disease. 7. Gastroesophageal reflux disease. 8. Benign prostatic hypertrophy. 9. Osteoarthritis, multiple sites. Plan: We will go ahead and admit the patient to the hospital for further evaluation and management o f this problem. The patient is appropriate for inpatient and is expected to spend 2 midnights in [facility] for his stroke. We will consult neurologist, Dr. Patel, and consult Physical Therapy, Occup ational Therapy, and Speech Therapy tomorrow. The patient is on chronic anticoagulation therapy due to prior history of pulmonary embolus and he was on Eliquis 5 mg 2 times and took that for long time and sometime few months ago, the dose was reduced to 2.5 mg 2 times a day as a maintenance for preven tion of future blood clots. The patient has been taking medications regularly and we will go ahead a nd consult senior scientist as well. Another possibility we need to keep in back of our mind is any poss ibility of cardiac arrhythmia like atrial fibrillation. So far, we have not seen any evidence of rox t. We will get a carotid Doppler and echo with Doppler tomorrow. Diabetes will be managed with medi cations per order. He takes Farxiga at home and we will continue that. For cholesterol, continue hi s cholesterol medications per order. No need for further intervention. We will get lipid profile do ne. For blood pressure, I will continue antihypertensive medication with monitoring of blood pressur e and if necessary adjust medication. For his benign prostatic hypertrophy, he is on tamsulosin, lucille ch we will continue that. No need for further intervention. Total time spent today was 80 minutes including review of last hospital admission record from 024, review of last office visit record, performing today's evaluation and management as well as comm unication with emergency room physician and review of emergency room visit record. I will see him to [facility] for followup. ERIN/MODL Voice ID: [id number]
[2024-09-04] MEDS: ROSUVASTATIN 10 MG TAB PO SCH (08:34)
[2024-09-04] MEDS: Multi-VIT(Centravite Senior) 1 TAB TAB PO SCH (08:34)
[2024-09-04] MEDS: METOPROLOL TAR 50 MG TAB PO SCH (08:34)
[2024-09-04] MEDS: TAMSULOSIN 0.4 MG SR CAP PO SCH (08:34)
[2024-09-04] MEDS: APIXABAN 5 MG TABLET PO SCH (08:35)
[2024-09-04] MEDS: cloNIDine HCL 0.1 MG TAB PO SCH (08:35)
[2024-09-04] MEDS: LOSARTAN POTASSIUM 50 MG TABLET PO SCH (08:35)
[2024-09-04] MEDS: FAMOTIDINE 20 MG TAB PO SCH (08:35)
[2024-09-04] MEDS ORDERED: CLONIDINE HCL 0.2 MG PO SCH (09:00)
[2024-09-04] MEDS: DAPAGLIFLOZIN PROPANEDIOL 5 MG PO SCH (09:00)
--- NOTE | 2024-09-04 11:59 | EKG ---
Test Date: 2024-09-03 Test Time: 16:41:23 Photographic Engineer: COLT MEASUREMENT RESULTS: Intervals: Rate: 79 MT: 174 QRSD: 100 QT: 386 QTc: 442 [place]: P: 65 MT: 174 QRS: 44 T: 72 INTERPRETIVE STATEMENTS: Sinus rhythm with premature atrial complexes Otherwise normal ECG Compared to ECG 01/06/2024 19:38:28 Atrial premature complex(es) now present Electronically Signed On 09-04-24 11:57:07 CDT by [place]
--- NOTE | 2024-09-04 21:34 | PN ---
Date of Progress Note: 09/04/2024 Subjective: The patient was seen this morning for followup. No new complaints or problems reported by the patient. The patient's was present with him at bedside. Objective: Vital Signs: Reviewed. HEENT: Unremarkable. Lungs: Clear to auscultation. Heart: Sounds normal. Abdomen: Soft. Bowel sounds normal. No guarding, rigidity, tenderness, distention. Extremities: No leg edema. Neuro: Unchanged from yesterday. Laboratory Data: Carotid Doppler shows bilateral 40% to 45% stenosis. No hemodynamically significan t stenotic lesion. Impression: 1. Stroke with right-sided hemiparesis. 2. Decubitus ulcer, right buttock. 3. Hypertension. 4. Type 2 diabetes mellitus. 5. Carotid artery stenosis, bilateral. Plan: We will go ahead and follow up with neurologist, Dr. Patel. Echo and MRI of brain will be done today. We will follow up on that result. Upon exam, the patient was noted to have about 5 mm s tage II decubitus ulcer over right inner buttock area, and we will consult general surgeon, Dr. Tesha valverde, to help manage that. We will follow up with Physical Therapy, Occupational Therapy, and Speech Therapy and I will see him tomorrow for destiny see ERIN/MODL Voice ID: [id number] Report ID: [id number]
--- NOTE | 2024-09-04 21:49 | RAD REPORT ---
EXAMINATION: MRI BRAIN WITHOUT CONTRAST CLINICAL INDICATION: Male, 69 years old.[facility] N right sided weakness, slurred speech TECHNIQUE: Multiplanar multisequence MR images of the brain were obtained without intravenous contras t. Unless otherwise specified, incidental findings do not require dedicated imaging follow-up. COMPARISON: 12/13/2023 FINDINGS: INTRACRANIAL: Midline structures are unremarkable. Diffusion-weighted images show anterior left pont ine focus of diffusion restriction and another possible punctate focus underlying the trigeminal plate near the midline. Small focus of diffusion restriction also noted in the right globus pallidus/ posterior internal capsule limb. These foci suggest acute to subacute infarcts, and demonstrate corresponding T2 and FLAIR hyperintensity. New foci of T2 hyperintensity with no corresponding diffus ion restriction along the right centrum semiovale. There is stable moderate brain atrophy with otherwise stable advanced T2/FLAIR hyperintensities in the periventricular and deep white matter monique ons, likely representing chronic microvascular ischemic changes. There is no mass effect or midline shift. No abnormal extraaxial fluid collection. VASCULATURE: Normal signal voids in the larger intracranial arteries and dural venous sinuses. SINUSES: Small left maxillary sinus mucus retention cyst. The mastoid air cells are predominantly marcos ar. BONE: The marrow signal pattern is within normal limits. IMPRESSION: Multiple acute to subacute infarcts as detailed above. No evidence of intracranial hemorrhage. THIS REPORT CONTAINS FINDINGS THAT MAY BE CRITICAL TO PATIENT CARE. The findings were verbally commun icated via telephone to Brianne Austin MD on 09/04/2024 9:45 PM.
[2024-09-05] MEDS: cloNIDine HCL 0.1 MG TAB PO PRN (00:28)
[2024-09-05 04:16] VITALS: O2SAT 92
[2024-09-05 06:42] VITALS: BMI 27.3
[2024-09-05] MEDS: DAPAGLIFLOZIN PROPANEDIOL 5 MG PO SCH (09:16)
[2024-09-05] MEDS: AMLODIPINE 5 MG TAB PO SCH (09:17)
--- NOTE | 2024-09-05 10:09 | ECHO ---
HEIGHT: 5 ft 10 in WEIGHT: 190 lb 11.198 oz DATE OF STUDY: 09/02/[address]: Dustin Del Angel MD 2-DIMENSIONAL: YES M.MODE: YES DOPPLER: YES COLOR FLOW: YES TDS: PORTABLE: YES DEFINITY: BUBBLE STUDY: DIAGNOSIS: STROKE CARDIAC HISTORY: CATHERIZATION: SURGERY: PROSTHETIC VALVE: PACEMAKER: MEASUREMENTS (cm) DIASTOLIC (NORMALS) SYSTOLIC (NORMALS) IVSd 1.1 (0.6-1.2) LA Diam 3.9 (1.9-4.0) LVEF 60-65% LVIDd 4.0 (3.5-5.7) LVIDs 2.6 (2.0-3.5) %FS 36% LVPWd 1.3 (0.6-1.2) Ao Diam 2.9 (2.0-3.7) 2 DIMENSIONAL ASSESSMENT: RIGHT ATRIUM: NORMAL LEFT ATRIUM: NORMAL RIGHT VENTRICLE: NORMAL LEFT VENTRICLE: NORMAL TRICUSPID VALVE: NORMAL MITRAL VALVE: NORMAL PULMONIC VALVE: NORMAL AORTIC VALVE: NORMAL PERICARDIAL EFFUSION: NONE AORTIC ROOT: NORMAL LEFT VENTRICULAR WALL MOTION: NORMAL DOPPLER/COLOR FLOW: NORMAL COMMENTS: 1. NORMAL LEFT VENTRICULAR SYSTOLIC FUNCTION, EJECTION FRACTION 60-65%, NORMAL WALL MOTION 2. NORMAL DIASTOLIC FUNCTION 3. NORMAL FILLING PRESSURE TECHNOLOGIST: ALONSO RODRIGUEZ
[2024-09-05] MEDS ORDERED: DOCUSATE NA/SENNA CONC 1 TAB PO PRN (13:05)
[2024-09-05] MEDS ORDERED: MAGNESIUM HYDROXIDE 8% 30 ML PO PRN (13:05)
--- NOTE | 2024-09-05 19:05 | PN ---
Date of Progress Note: 09/05/2024 Diagnosis: Buttock pressure ulcer. Subjective: The patient is doing better. Unfortunately, he has history of CVA and mobility is someh ow limited, but he is trying to keep the buttock area elevated. Objective: The physical exam has not changed. No infection, just minimal fibrin that was removed ye sterday with 4 x 4's. No fluctuance seen, no crepitus. No need for debridement at this moment. We have some fibrin that we were trying to release with chem ical debridement in the form of Santyl. Plan: Continue Santyl, offloading, nutrition. HM/MODL Voice ID: [id number] Report ID: [id number]
--- NOTE | 2024-09-05 20:20 | PN ---
Date of Progress Note: 09/05/2024 Subjective: The patient was seen this morning for followup. No new complaints or problems reported. Yesterday, he was able to walk few steps with Physical Therapy. Blood pressure was high last night , so p.r.n. order of clonidine was given to nursing staff and this morning, we will start him on amlo dipine 5 mg daily. Objective: Vital Signs: Reviewed. HEENT: Unremarkable. Lungs: Clear to auscultation. Heart: Sounds normal. Abdomen: Soft. Bowel sounds normal. No guarding, rigidity, tenderness, distention. Extremities: No leg edema. Neuro: Right-sided weakness unchanged from admission. Laboratory Data: MRI of the brain done yesterday shows multiple acute to subacute infarct. No bleed ing. Impression: 1. Stroke. 2. Rule out atrial fibrillation. 3. Hypertension. Plan: We will go ahead and continue Eliquis 5 mg 2 times a day. Continue physical therapy. Continu e current antihypertensive medication including dose adjustment, which was made this morning and the echocardiogram result is pending. I have discussed details with the patient and patient's and w e did talk about discharge planning and the patient is to inpatient rehab floor. So, Social Service was consulted to help make arrangements for that. I will see him tomorrow for followu mara KHAN/NURIA Voice ID: [id number] Report ID: [id number]
--- NOTE | 2024-09-05 20:42 | RAD REPORT ---
Modified barium swallow exam with speech pathology service HISTORY: [facility] MAIN trouble swallowing Fluoroscopy Time: 7.5 minutes Skin dose: 120.76 mGy IMPRESSION: Please see the speech pathology service report for details. Barium contrast of multiple consistencies was provided the patient orally by the speech pathology dep artment. Fluoroscopic observation was performed during swallowing. The radiologist was not present for the examination. Provided images demonstrate evidence of aspiration with thin liquids by cup foll owed by cough, with other instances of laryngeal penetration.
[2024-09-06] MEDS: METOPROLOL TAR 50 MG TAB PO ONE (00:44)
--- NOTE | 2024-09-06 01:40 | CON ---
Date of Consultation: 09/05/2024 Time Of Service: 1:00 p.m. Reason For Consultation: Stroke. History Of Present Illness: Mr. Sanches is a 69-year-old patient with multiple stroke risk factors, whom I see for dementia. He did recently start donepezil and when speaking with the patient and his , he said, he began having difficulty about a week ago with balance, coordination. [place] that he was in general not feeling well and has weakness in all extremities. He was falling and after a few days, eventually came in to be evaluated. He did have some increased weakness more in the right yuval e than left. No difficulty with swallowing solid foods, but had some difficulty with liquids. Event ually, his evaluation did identify on MRI, multiple acute and subacute appearing strokes involving th e left logan, the trigeminal plate. There is a midline, the right globus pallidus, and posterior limb of the internal capsule. The strokes appeared to be ranging from acute to subacute on T2 and FLAIR hyperintensities. There was also new foci of T2 hyperintensity with no restricted diffusion in the r ight centrum semiovale and stable cerebral atrophy with advanced small-vessel ischemic disease in the periventricular and deep subcortical white matter. The patient was evaluated by Speech Pathology an d found to be able to protect his airway and was able to eat lunch. At the time of my evaluation was eating lunch. He was able to move both upper and lower extremities equally well and held a 5 counts in the feet and legs and a 10 count in the upper extremities in terms of elevation of the legs. He did have a stocking-glove loss to light touch, temperature in the upper and lower extremities. Past Medical History: Dementia, Alzheimer's type; hypertension; dyslipidemia; prostate hypertrophy. Allergies: PENICILLIN. Laboratory Studies: White blood cell count is 8.9, hemoglobin 15.5, platelets 234. INR 1.21. Blood sugars ranged from 161 to 199. Sodium 139, potassium 3.6, chloride 106, carbon dioxide 24, BUN 19, creatinine 1.05. His calcium 9.1. Creatine kinase 55, triglycerides 334 total cholesterol 133, LDL 51, HDL 35. Cholesterol HDL ratio 3.8. He did have modified barium swallow study done earlier today . The study showed evidence of aspiration with thin liquids followed by a cough with instances of la ryngeal penetration noted. Echocardiogram was completely normal with ejection fraction 60% to 65%. No abnormalities were identified. Family History: Noncontributory. Social History: No recent alcohol, tobacco, or IV drug use. The patient lives at home with his . Past Surgical History: Reviewed. Review of Systems: Diffuse weakness, incoordination, and more right-sided weakness, loss of balance, and some coughing a nd choking when patient is questioned on that. Also, mild myalgias, arthralgias. No rash, no psychi atric issues. Physical Examination: Vital Signs: Blood pressure 132/100, pulse 69, respiratory rate 12, temperature 97.9, oxygen saturat ion 95%. General: Mr. Sanches is resting in bed. He is eating his lunch. He appears to have some bruising of the legs, they are healing in multiple stages. No obvious significant bruising noted. HEENT: He is otherwise normocephalic, atraumatic. Sclerae anicteric. Oropharynx is moist. Neck: Supple. Chest: Clear. Extremities: He has mild diffuse weakness of lower extremities, perhaps slightly more on the right t allen left. At least 4/5 strength noted. Sensation stocking-glove loss to light touch, temperature in lower extremities. He did ambulate about 7 steps with the physical therapist, but required moderate assistance. Assessment: Mr. Sanches is a 69-year-old patient with likely possible actually cardiogenic strokes. He has had multiple strokes in left and right vascular territories. He does have uncontrolled hype rtension, dyslipidemia as well, which are potential risk factors for stroke. He was recently started on donepezil and links the onset of the events to that; however, it is unclear if that may be relate d as strokes do tend to have a cardiovascular appearance in terms of etiology. The patient should be evaluated further for inpatient rehabilitation in the rehabilitation unit as he may be a good candid ate for aggressive therapy to help him return to his prior level of functioning. LB/MODL Voice ID: [id number] Report ID: [id number]
[2024-09-06] MEDS: AMLODIPINE 5 MG TAB PO ONE (01:55)
[2024-09-06] MEDS ORDERED: COLLAGENASE 30 GM OINTMENT TOP SCH (09:00)
--- NOTE | 2024-09-06 12:10 | DS ---
Date of Discharge: 09/06/2024 Disposition: Discharged to go to inpatient rehab. Physical Examination: HEENT: Unremarkable. Lungs: Clear to auscultation. Heart: Sounds normal. Abdomen: Soft. Bowel sounds normal. No guarding, rigidity, tenderness, distention. Extremities: No leg edema. Neuro: Right-sided hemiparesis, unchanged from time of admission. Laboratory Data: Upon admission, WBC 8.9, hemoglobin 15.8, platelets 234. Sodium 139, potassium 3.6 , chloride 106, bicarb 24, BUN 19, creatinine 1.05, glucose 266, CPK 55. Initial troponin 10.7, seco nd troponin 10.1. Cholesterol shows triglyceride 234, total cholesterol 133, LDL 51, HDL 35. Hospital Course: This is a 69-year-old male patient, who was brought into emergency room with compla ints of feeling weak and off balance. Please see dictated H and P for more information. After the p ataftab was evaluated in the emergency room, he was admitted to the hospital. He did have right-sided hemiparesis that was detected on exam. CAT scan of the head was negative for any acute intracranial changes. MRI of the brain was done during this hospitalization, revealed evidence of multiple small infarct area. This appeared to be acute to subacute. No evidence of any hemorrhage. Echocardiogra m showed normal ejection fraction and it was unremarkable echocardiogram. Carotid Doppler showed 40% to 45% bilateral stenosis, no hemodynamically significant stenotic lesion. After the patient was ev aluated in ER, was admitted to hospital. He was taking Eliquis 2.5 mg twice a day and he was taking it for prevention of blood clot after he had DVT and pulmonary embolism in the past. The patient cerda s not have any prior history of atrial fibrillation. After we looked at MRI, I was concerned about p ossibility of atrial fibrillation as an underlying reason for his stroke and Dr. Patel from Neurol ogy Service was consulted and he also had similar concern. Since admission to the hospital, we have him on Eliquis 5 mg 2 times a day. Even though we have not picked up any atrial fibrillation as unde rlying cause or etiology, that is our primary suspicion right now and we will continue Eliquis 5 mg 2 times a day at this time and this was discussed with the patient and the patient's . For docume ntation purpose, one may consider either event monitor or loop recorder down the line, but that would only help to understand possible underlying cause if we can capture any evidence of atrial fibrillat ion, but at this time, he is being treated with full anticoagulation dose, so doing such test and det ecting any underlying arrhythmia really will not change our treatment and recommendation that we are doing right now. Physical Therapy, Occupational Therapy, and Speech Therapy was consulted. The danielle ent's and the patient expressed desire to go to inpatient rehab for therapy. Yesterday, Social Service was consulted. Today, I was notified that the patient can go up to rehab floor today as he w as discharged to go to inpatient rehab today, where I will continue to follow up. The patient is med ically stable for discharge. His blood pressure has gone up during this hospitalization and I have a ttempted to make some adjustment on medication, which we will continue to do so as it becomes necessa ry. Last night, the patient's blood pressure had gone up again and he was given metoprolol and amlod ipine as extra dose of blood pressure medication for control. This morning, it looks much better. Final Diagnoses: 1. Stroke with right-sided hemiparesis. 2. Rule out atrial fibrillation. 3. Pulmonary nodule. 4. Type 2 diabetes mellitus. 5. Hypertension. 6. Hyperlipidemia. 7. Coronary artery disease. 8. Gastroesophageal reflux disease. 9. Benign prostatic hypertrophy. 10. Osteoarthritis, multiple sites. Total time spent 45 minutes. Discharge Medications And Instructions: Continue all current medications and see copy of transfer or varsha for details. ERIN/MODL Voice ID: [id number] Report ID: [id number]
[2024-09-06 13:20] VITALS: BP 160/88; TEMP 97.8
[2024-09-06] MEDS ORDERED: AMLODIPINE 5 MG TAB PO SCH (21:00)
== END 2024-09-06 14:08 | DRG 65 ==
LOC: ER 15:33 → ERHOLD 18:27 → 2ND 19:11
PROVIDERS: ADMIT Internal Medicine; ATTEND Internal Medicine
DX: I63.9 Cerebral infarction, unspecified (principal); G81.91 Hemiplegia, unspecified affecting right dominant side; I10 Essential (primary) hypertension; E78.00 Pure hypercholesterolemia, unspecified; I48.91 Unspecified atrial fibrillation; M19.09 Primary osteoarthritis, other specified site; E11.9 Type 2 diabetes mellitus without complications; I65.23 Occlusion and stenosis of bilateral carotid arteries; J44.9 Chronic obstructive pulmonary disease, unspecified; L89.319 Pressure ulcer of right buttock, unspecified stage; K21.9 Gastro-esophageal reflux disease without esophagitis; N40.0 Benign prostatic hyperplasia without lower urinary tract symptoms; I25.10 Atherosclerotic heart disease of native coronary artery without angina pectoris; G30.9 Alzheimer's disease, unspecified; F02.80 Dementia in other diseases classified elsewhere, unspecified severity, without behavioral disturbance, psychotic disturbance, mood disturbance, and anxiety; R47.81 Slurred speech; R91.8 Other nonspecific abnormal finding of lung field; R29.704 NIHSS score 4; R29.810 Facial weakness; Z88.0 Allergy status to penicillin; Z79.01 Long term (current) use of anticoagulants; Z86.711 Personal history of pulmonary embolism; Z86.73 Personal history of transient ischemic attack (TIA), and cerebral infarction without residual deficits
CPT/HCPCS: 36415; 70450; 70551; 71045; 74230; 80048; 80061; 82550; 82947; 84484; 85025; 85610; 85730; 92610; 92611; 93005; 93306; 93880; 96374; 97110; 97116; 97161; 97165; 97530; 99285; J3590; J7030; J7040

== ENCOUNTER 2024-09-06 12:13 | Inpatient (IN) | payer OTHER, MEDICARE ==
[2024-09-06] MEDS ORDERED: DOCUSATE NA/SENNA CONC 1 TAB PO PRN (14:47)
[2024-09-06] MEDS ORDERED: D10W 125 ML IV PRN (14:54)
[2024-09-06] MEDS ORDERED: GLUCAGON 1 MG/VIAL IM PRN (14:54)
[2024-09-06] MEDS ORDERED: cloNIDine HCL 0.1 MG TAB PO PRN (14:58)
[2024-09-06] MEDS: INSULIN REGULAR (HUMAN) 100 UNIT/ML SQ SCH (16:30)
[2024-09-06 17:23] VITALS: BMI 28.8
[2024-09-06 17:43] LABS: Specific Gravity 1.013 (1.005-1.030); Sqamous Epithelial None Seen /HPF (None Seen); Urine Bacteria None Seen /HPF (<20); Urine Bilirubin NEGATIVE (Negative); Urine Blood Negative (Negative); Urine Clarity Clear (Clear); Urine Color Light-Yellow (Yellow); Urine Culture Reflex Order NOT NEEDED; Urine Glucose 4+ (Over) (Negative); Urine Ketones NEGATIVE (Negative); Urine Micro Reflex YN NO BILL MICROSCOPIC; Urine Nitrite NEGATIVE (Negative); Urine Protein 1+ (Negative); Urine RBC <5 /HPF (None Seen); Urine Urobilinogen Normal (Normal); Urine WBC <5 /HPF (<5); Urine Yeast (Budding) Trace /HPF (None Seen); Urine pH 6.5 (5.0-7.0)
[2024-09-06] MEDS ORDERED: MAGNESIUM HYDROXIDE 8% 30 ML PO PRN (18:29)
[2024-09-06] MEDS: METOPROLOL TAR 50 MG TAB PO SCH (19:31)
[2024-09-06] MEDS: AMLODIPINE 5 MG TAB PO SCH (19:31)
[2024-09-06] MEDS: cloNIDine HCL 0.1 MG TAB PO SCH (19:32)
[2024-09-06] MEDS: APIXABAN 5 MG TABLET PO SCH (19:32)
--- NOTE | 2024-09-06 21:10 | HP ---
Date of Admission: 09/06/2024 Time Of Service: 2 p.m. Chief Complaint: "I had strokes and I need to get stronger." History Of Present Illness: Mr. Sanches is a 69-year-old patient with uncontrolled hypertension, di abetes mellitus, dyslipidemia, coronary artery disease, gastroesophageal reflux disease, Alzheimer's dementia, who developed about a week's worth of progressive weakness, incoordination, balance deficit s, and dysarthria with difficulty swallowing. Initially when his evaluation was done at [facility], CT scan of head unremarkable. However, MRI of the brain revealed multiple acute and subacut e infarcts involving the left logan, the trigeminal plate, the right globus pallidus, and the posterio r limb of internal capsule on the right and the right centrum semiovale. In addition, there were chr onic small vessel ischemic disease changes identified and cerebral atrophy. He was found to have dys arthria, dysphagia, sensory loss in stocking-glove fashion, and incoordination with unsteady gait. F guadalupe, his blood pressure required more aggressive control and clonidine instituted. In [facility], blood sugars also require to control and his dyslipidemia as well. He was evaluated by Speech The luis armando, had a modified barium swallow which confirmed dysphagia requiring a modified diet. In addition , he was only able to take 6 steps as he has tried to speak with the physical therapist. As a result , he was found to be significantly declined from his baseline and does require medical management and he is now admitted to the inpatient rehabilitation unit for physical, occupational, and speech thera py to help him return to his prior level of functioning and reduce his risk of rehospitalization. It is noted that prior to his recent strokes, he was independent, modified independent with his mobiliz ation, ambulation, and performance of his activities of daily living. Past Medical History: As noted above. Did have a prior stroke in the left shaffer radiata in November of 2023. He has had cervical decompression in 2012. He has lumbar spondylosis in addition to the oste oarthritis at multiple sites. In addition, he has chronic obstructive lung disease and history of pu lmonary embolus and a saddle form. Allergies: PENICILLIN. Imaging: A chest x-ray on 09/03 shows 1 cm upper lobe nodule without significant change from Novembe r 2023. Electrocardiogram shows sinus rhythm, premature atrial complexes. CT scan of the head on , no acute intracranial abnormalities. An MRI of the brain as noted shows the infarcts as detaile d without intracranial hemorrhage. Medications: Norvasc 5 mg twice daily, Eliquis 5 mg twice daily, Catapres 0.2 mg twice daily along w ith 0.1 mg every 6 hours as needed, Pepcid 40 mg daily, Cozaar 100 mg daily, Lopressor 50 mg twice da jose, Centrum Silver 1 tablet daily, Crestor 40 mg daily, Senokot-S 2 at bedtime, Flomax 0.4 mg daily. Family History: Noncontributory. Social History: No alcohol, tobacco, or IV drug use. The patient lives with his at home. Review of Systems: Again, difficulty with swallowing, speech, poor balance, poor coordination, and mild right-sided weak ness than previous prior to the stroke. Otherwise, no psychiatric complaints. No genitourinary, gas trointestinal new complaints. Current Level Of Functioning: Currently, he is at setup assistance for eating, moderate assistance f or grooming, maximal assistance for bathing, moderate assistance for upper body dressing, maximum ass istance for lower body dressing, and donning and doffing footwear. For toileting, maximal assistance . Transferring from bed to chair to wheelchair, moderate assistance required. Toileting, moderate a ssistance. Ambulation, he did 18 feet with moderate assistance. Physical Examination: Vital Signs: Blood pressure 159/88, pulse 74, respiratory rate 16, temperature 97.8, oxygen saturati on 96%. General: Mr. Sanches is resting comfortably in bed. HEENT: He does appear normocephalic, atraumatic. His sclerae are anicteric. Oropharynx moist. Neck: Supple. Chest: Clear. Extremities: No significant edema, cyanosis, or clubbing noted. He has diffuse weakness of upper an d lower extremities, more on the right. Around 4+/5 upper and lower extremity compared to the left, there is 5-. Sensation to stocking-glove loss, light, touch, temperature. Reflexes depressed. Rehab And Medical Assessment And Plan: Mr. Sanches is a 69-year-old patient admitted to the [facility] rehabilitation unit with impairment category 01, stroke. Impairment group code is 01.2, right bod y involvement, left brain. His etiologic diagnosis, cardiogenic embolic strokes. His comorbidities are decreased mobility, decreased physical functioning, uncontrolled hypertension, diabetes mellitus, dyslipidemia, chronic obstructive pulmonary disease, benign prostatic hypertrophy, coronary artery d isease, cervical and lumbar spondylosis. Plan: He will have physical, occupational, and speech therapy 3.5 hours, 5 of 7 days. He will have his comorbid condition medications managed by Dr. Del Angel, his primary care physician, who was following the patient on a daily basis. Blood pressures again adjustments will be made appropriately to help his blood pressure to be as much as possible below 160 systolic. We will work on issues of sleep, hy dration, bowel movements, address pain as well. He does have the Flomax for prostate hypertrophy for urinary flow. He has Crestor for dyslipidemia, multivitamin on board, Senokot for constipation, Lop ressor for heart rate control along with Cozaar for blood pressure control, Pepcid for GE reflux. He has clonidine for elevated blood pressure greater than 160, Eliquis for DVT prophylaxis and stroke r isk reduction. Comorbidities That Are Impacting Rehabilitation: The patient did have what appears to be the cardioe mbolic stroke, he is on Eliquis for that. He does have higher risk than of traumatic internal bleedi ng and therefore, fall precautions to be strictly adhered to at all times. He will have a gait belt, chair, and tow and if need be, chair alarm and bed alarm if there is evidence of impulsivity. Rehab Specific Plan: Mr. Sanches will have physical, occupational, and speech therapy 3.5 hours, 5 of 7 days, to improve his ability to transfer from bed to chair, to toilet, to a shower, and now to d ress upper and lower body, to manage all activities of daily living, and to help him improve his swal lowing to protect airway and maintain safety awareness. Mr. Sanches and his have good understanding of the process of admission to the inpatient rehabi litation unit, and how he will benefit from physical, occupational, and speech therapy. He will have 24 hours a day, 7 days a week skilled rehabilitation and nursing, daily physician evaluation and man agement, and protective services social worker evaluation and management for discharge planning, for home equipment, an d to follow up with physicians along with his following up of therapy after discharge. Again, Dr. Cruz harley, his primary care physician, is following him throughout. Barriers To Discharge: Depending on how he progresses and if he is unable to be safe at home, he may have to go to snf, but the goal is for him to go home. Length Of Stay: About 12 to 14 days. Disposition: Expected to be home with physical therapy continued, occupational and speech therapy at home. Prognosis: Good. Code Status: Full code. Rehab Specific Goals: 1. Become independent with upper and lower body dressing, donning and doffing footwear. 2. Independently perform all activities of daily living. 3. Independently ambulate 250 feet with a rolling walker, propel a wheelchair 250 feet, and up and do wn 10 steps with bilateral handrails. 4. Independently perform all issues that have safety awareness without difficulty. Mr. Sanches and his have good understanding of the process of admission to the inpatient rehabi litation unit, and how they will hopefully meet their goals. By signing this document, I acknowledge I personally performed a full physical examination on Mr. Met robins no later than 24 hours after his admission to the inpatient rehabilitation unit and determined that he is able to tolerate the above course of treatment at an intensive level for a reasonable kaylyn od of time. A detailed individualized plan of care for him will be completed by hospital day 4 based on the preadmission screen, history and phy sical, and therapy evaluations. TOMÁS Voice ID: [id number]
[2024-09-07 05:36] LABS: Absolute Basophils 0.2 K/uL (0-0.5); Absolute Eosinophils 1.1 K/uL (0-0.5); Absolute Lymphocytes (CBC) 1.9 K/uL (0.7-4.9); Absolute Monocytes 0.6 K/uL (0.1-1.3); Absolute Neutrophil 5.8 K/uL (1.8-8.0); Basophils % 1.8 % (0-1.3); Eosinophils % 11.1 % (0-4.4); Hematocrit 45.7 % (39.6-49.0); Hemoglobin 15.4 g/dL (13.6-17.9); Lymphocytes % 19.9 % (15.3-44.8); MCH 29.3 pg (27.0-35.0); MCHC 33.8 g/dL (32.0-36.0); MCV 86.8 fL (80-100); MPV 8.4 fL (7.6-11.3); Monocytes % 6.4 % (3.3-12.3); Neutrophils % 60.8 % (41.7-73.7); Nucleated Red Blood Cells % 0.1 % (0-0); Platelets 215 thou/uL (152-406); RBC Red Blood Cell Count 5.27 M/uL (4.33-5.43); Red Cell Distribution Width 15.1 % (12.1-15.2)
[2024-09-07 06:00] LABS: Albumin 2.7 g/dL (3.4-5.0); Anion Gap 10.5 mEq/L (5.0-15.0); Magnesium 1.9 mg/dL (1.6-2.4); Potassium 3.5 mEq/L (3.5-5.1); Prealbumin 17.1 mg/dL (20-40)
[2024-09-07] MEDS: DAPAGLIFLOZIN 5 MG PO SCH (08:00)
[2024-09-07] MEDS: ROSUVASTATIN 10 MG TAB PO SCH ×2 (08:00→19:44)
[2024-09-07] MEDS: Multi-VIT(Centravite Senior) 1 TAB TAB PO SCH ×2 (08:00→19:45)
[2024-09-07] MEDS: FAMOTIDINE 20 MG TAB PO SCH ×2 (08:00→19:44)
[2024-09-07] MEDS ORDERED: LOSARTAN POTASSIUM 50 MG TABLET PO SCH (08:00)
[2024-09-07] MEDS: TAMSULOSIN 0.4 MG SR CAP PO SCH (09:20)
--- NOTE | 2024-09-07 10:10 | PN ---
Date of Progress Note: 09/07/2024 Subjective: The patient was seen this morning for followup. No new complaints or problems reported. The patient lying in bed, not in distress. His was with him at bedside. He is on the rehab floor this morning when I saw him. Objective: Vital Signs: Reviewed. This morning, temperature 98.4, pulse 77, respiratory rate 16, blood pressure 143/82, oxygen saturation 96%. HEENT: Unremarkable. Lungs: Clear to auscultation. Heart: Sounds normal. Abdomen: Soft. Bowel sounds normal. No guarding, rigidity, tenderness, distention. Extremities: No leg edema. Neuro: Right-sided hemiparesis with power 4+/5 in right upper and right lower extremity. Left side is 5/5. Laboratory Data: WBC 9.6, hemoglobin 15.4, platelets 250. Sodium 140, potassium 3.5, chloride 110 bicarb 23, BUN 15, glucose 138, magnesium 1.9. Impression: 1. Stroke. 2. Chronic anticoagulation therapy. 3. Hypertension. Plan: We will go ahead and continue current antihypertensive medication with monitoring of blood pressure if necessary. We will make adjustment, but last adjustment on blood pressure medication was made yesterday. We will continue current anticoagulation therapy with Eliquis 5 mg 2 times a day. Continue physical therapy under guidance of Dr. Patel, and I have shown and instructed the patient and his to do leg exercises while he is not working with the therapy like during evening hours or tomorrow on Monday when there is no therapy session. I will see him tomorrow for followup. ERIN/NURIA Voice ID: [id number] Report ID: [id number] YESY
[2024-09-07] MEDS: COLLAGENASE 30 GM OINTMENT TOP SCH (11:12)
[2024-09-07] MEDS: LOSARTAN POTASSIUM 50 MG TABLET PO SCH (13:17)
--- NOTE | 2024-09-08 13:01 | PN ---
Date of Progress Note: 09/08/2024 Subjective: The patient was seen this morning for followup. No new complaints or problems reported by the patient. His was with him at bedside. Yesterday, with Physical Therapy sessions back-to -back, he was tired and exhausted, but after resting in the afternoon, he started to feel much better as of yesterday evening. This morning, no new complaints or problems reported. Objective: Vital Signs: Reviewed. HEENT: Unremarkable. Lungs: Clear to auscultation. Heart: Sounds normal. Abdomen: Soft. Bowel sounds normal. No guarding, rigidity, tenderness, distention. Extremities: No leg edema. Impression: 1. Stroke with right-sided hemiparesis. 2. Chronic anticoagulation therapy. 3. Hypertension. 4. Hyperlipidemia. 5. Bilateral carotid artery stenosis. Plan: We will continue current medications. Continue current anticoagulation medication with Eliqui s. We will continue physical therapy under guidance of Dr. Patel. We will continue to monitor bl ood pressure and continue current antihypertensive medication. ERIN/MODL Voice ID: [id number] Report ID: [id number]
[2024-09-09] MEDS: DOCUSATE NA/SENNA CONC 1 TAB PO SCH (09:01)
--- NOTE | 2024-09-09 21:11 | PN ---
Date of Progress Note: 09/09/2024 Subjective: The patient was seen this morning for followup. No new complaints or problems reported by the patient, lying in bed, not in distress. Denies any new complaints. Has not had a bowel movem ent in last 2 to 3 days. Objective: Vital Signs: Reviewed. HEENT: Unremarkable. Lungs: Clear to auscultation. Heart: Sounds normal. Abdomen: Soft. Bowel sounds normal. No guarding, rigidity, tenderness, distention. Extremities: No leg edema. Impression: 1. Constipation. 2. Stroke with right-sided hemiparesis. 3. Hypertension. 4. Hyperlipidemia. Plan: We will continue current medication. Continue current antihypertensive medication and cholest hemalatha medication. Continue physical therapy per guidance of Dr. Patel. The patient has orders for Senokot-S to be used on a p.r.n. basis, but I have changed it as of today for him to receive 2 table ts by mouth daily starting this morning. I will see him tomorrow for followup. ERIN/MODL Voice ID: [id number] Report ID: [id number]
--- NOTE | 2024-09-10 00:21 | PN ---
Date of Progress Note: 09/09/2024 Time Of Service: 1:25 p.m. Subjective: Mr. Sanches is sitting in a chair at the sink. He is doing very well. He is very happ y so far with his progress despite his multiple small cardioembolic strokes. He has no new complaint s. Objective: He denies any significant fevers, chills, nausea, vomiting, myalgias, arthralgias, rash, headache, or weight change. Physical Examination: Vital Signs: Blood pressure 155/88, pulse 77, respiratory rate 18, temperature 98.1, oxygen saturati on 94%. General: Mr. Sanches is sitting at the sink. HEENT: He appears normocephalic, atraumatic. Sclerae anicteric. Oropharynx pink and moist. Neck: Supple. Chest: Clear. Extremities: No new findings on examination. Laboratory Studies: White blood cell count is 9.6, hemoglobin 15.54, platelets 215. His blood sugar s ranged from 131 to 152. Sodium is 140, potassium 3.5, chloride 110, carbon dioxide 23, BUN 15, cre atinine 0.85 prealbumin 17.1, albumin 2.7, magnesium 1.9, calcium 8.9. Urinalysis shows 4+ glucose, trace budding yeast, 1+ total protein, and that was on 09/06. X-ray/imaging: No new x-rays or imaging. Medications: Norvasc 5 mg twice daily, Eliquis 5 mg twice daily, Catapres 0.1 mg for systolic blood pressure greater than 160. He has Pepcid 40 mg at bedtime, Cozaar 100 mg daily, sliding scale of ins ulin, milk of magnesia 30 mL twice daily for constipation, Lopressor 50 mg twice daily, Centrum Silve r 1 tablet daily, Crestor 40 mg at bedtime, Senokot-S 2 tablets at bedtime, Flomax 0.4 mg daily. Progress Made With Physical, Occupational, And Speech Therapy: With physical therapy today, he did b ed turning with moderate assistance, supine to sit transfers moderate assistance required. He did be come tired as he was trying to do exercises and eventually required maximum assistance. He ambulated 10 feet with maximum assistance using a rolling walker and propelled a and then another 20 feet 4 ti mes and required maximum assistance. He propelled the wheelchair 40 to 60 feet 5 times, then roland pinzon covered 250 feet in total requiring multiple rest breaks. With his speech therapy, he did tongue base retraction exercises and Shawna was attempted, but the patient was not able to complete that du ring the session. He is tolerating nectar-thick liquids without overt signs of aspiration. He did h ave pharyngeal clearing with swallowing. Assessment: Mr. Sanches is a 69-year-old patient is in the rehabilitation unit with sequelae of str carlos manuel. He has prostate hypertrophy, dyslipidemia, constipation, hypertension, gastroesophageal reflux, atrial fibrillation. Plan: We will continue with physical, occupational, and speech therapy 3.5 hours, 5/7 days. His com orbid condition are managed by his primary care physician, Dr. Del Angel. He has, of course, significant issues of aspiration with aspiration risk is present and aspiration precautions to be adhered to stri ctly as possible. He has DVT risk reduction addressed with Eliquis along with stroke risk reduction also addressed with Eliquis. The patient is making fair progress overall; however, it is possible th at given his slow rate of progression, he may end up being discharged to snf facility to give him more time to improve and to recover prior to going back home. LB/MODL Voice ID: [id number] Report ID: [id number]
--- NOTE | 2024-09-10 20:12 | PN ---
Date of Progress Note: 09/10/2024 Subjective: The patient was seen this morning for followup. No new complaints or problems reported. The patient had a bowel movement yesterday. Objective: Vital Signs: Reviewed. HEENT: Unremarkable. Lungs: Clear to auscultation. Heart: Sounds normal. Abdomen: Soft. Bowel sounds normal. No guarding, rigidity, tenderness, distention. Extremities: No leg edema. Impression: 1. Constipation. 2. Stroke. 3. Hypertension. 4. Hyperlipidemia. Plan: Continue current stool softener. Continue current antihypertensive medication. radiation therapist apy to be provided under guidance of Dr. Patel. I will see him tomorrow for followup. ERIN/MODL Voice ID: [id number] Report ID: [id number]
--- NOTE | 2024-09-10 21:07 | PN ---
Date of Progress Note: 09/10/2024 Time Of Service: 1:20 p.m. Subjective: Mr. Sanches is doing excellent in his bed today. However, overnight he said he kind of slipped out of the bed. The side rails were not up. Denied any pain in his arms, in his legs, in h is knees, in his ankles, or anywhere and he was seen by staff who assisted him with back up. As he w as coming out of bed, he said he needed to have a bowel movement, but did not make it in time and rox t is why he ended up slipping out and actually had a bowel movement on himself, but he was cleaned up by staff. Objective: Again, no fevers or chills. No nausea or vomiting. Did have the issue of sliding out of bed. Had a bowel movement, but otherwise no new findings. Physical Examination: Vital Signs: Blood pressure is 165/77, pulse 78, respiratory rate 18, temperature 98.3. Oxygen satu ration 96%. General: Mr. Sanches is resting comfortably. He is in no significant distress. Able to move arms and legs equally well and despite the multiple strokes, he has facial asymmetry, but is still maintai hallie good function and movement in the arms and legs and doing well from that standpoint. Laboratory Studies: Today, blood sugars ranged from 126 to 142. X-ray/imaging: No new x-rays or imaging. Medications: Have been reviewed and are unchanged. He has Senokot for constipation. Progress Made With Physical, Occupational, And Speech Therapy: With physical therapy today, he did a mbulate 50 feet twice, 65 feet and 80 feet with minimum assistance. Mobilized the wheelchair to 60 f eet twice, 80 feet twice, and 100 feet with contact guard assistance. Did have some right foot dragg ing and slouching with every second or third step. With his occupational therapy, bed mobility with moderate assistance. His activities of daily living, worked on donning and doffing footwear and he d id well. He needed moderate assistance for socks and did that twice. Did work on strengthening his upper extremity with 2-pound dowels. With his speech therapy, he had great difficulty increasing his volume of speech and have reduced breath support for his continued speaking. He completed sentences with 70% intelligibility. He did have again some difficulty with that. Assessment And Plan: Mr. Sanches is a 69-year-old patient in rehabilitation unit with multiple card ioembolic strokes for which he is recovering fairly well, although somewhat slowly. He still is at h igh risk of falling, did slip out of bed last night as he was trying to have bowel movement, but did not make it and dyslipidemia, hypertension, GE reflux, and atrial fibrillation with risk o f stroke and he has DVT risk. Plan: We will continue with physical, occupational, and speech therapy 3.5 hours, 5 of 7 days. Cont inue with his comorbid condition medications which are managed by Dr. Del Angel. Does have the Eliquis 5 mg twice daily for DVT risk reduction and fall precautions will be strictly adhered to, bed alarm, ch air alarm, if the patient is unable to ask for help in time and attempts to get out of bed on his own . Given the rate of progress, it is possible that he may not be able to go home and be safe and he m ay have to go to a shelter facility, in the interim. However, the goal is for him to be able to go home, but again it may be noticed that he may have to go to shelter to continue improv ing with more time to recover. AYAH/NURIA Voice ID: [id number] Report ID: [id number]
--- NOTE | 2024-09-11 21:07 | PN ---
Date of Progress Note: 09/11/2024 Time Of Service: 1:20 p.m. Subjective: Mr. Sanches is doing well. He is sitting in a chair beside the bed. Denies going out of bed overnight and he is feeling better about his exercises and has been having a bowel movement. Objective: He denies fevers, chills, nausea, vomiting. No myalgias or arthralgias. No new weakness or deficits. Physical Examination: Vital Signs: Blood pressure 129/70, pulse 80, respiratory rate 16, temperature 97.8. Oxygen saturat ion 97%. General: Mr. Sanches is sitting in a chair beside bed. HEENT: He is normocephalic, atraumatic. Sclerae anicteric. Oropharynx pink and moist. Neck: Supple. Chest: Clear. He has no known findings in terms of new deficits. Laboratory Studies: His blood sugars ranged from 132 to 144. X-ray Imaging: No new x-rays or imaging. Medications: Have been reviewed and are unchanged. Progress Made With Physical, Occupational, And Speech Therapy: With physical therapy today, he did a mbulate 50 feet 3 times with minimum assistance. Did mobilize a wheelchair 30 to 70 feet and then ma naged a total of 300 feet total. Multiple sdr-ks-avcng transfers and syrrv-zd-oqjyv transfers done w ith moderate assistance. With his occupational therapy, minimum assistance for bed mobilization from supine to edge of bed. Needed moderate to maximum assistance from bed to wheelchair mobilization. Minimum assistance for showering, upper body dressing also at a minimum assistance level. With speec h, completed tongue base retraction exercises 10 sets for airway protection. He also worked with ice chips. Had no signs of aspiration. Thin liquids done and again no overt signs of aspiration seen. Assessment And Plan: Mr. Sanches is a 69-year-old patient with multiple cardioembolic strokes who w as making fair overall progress with physical, occupational, and speech therapy. He still has decrea sed mobility, decreased physical functioning, atrial fibrillation, managed by Dr. Del Angel. He has dysli pidemia, hypertension, constipation, stroke risk, DVT risk. Plan: We will continue with physical, occupational, and speech therapy. Continue with management of comorbid conditions by Dr. Del Angel. He is making some progress overall, but still depending on how hari g he is able to remain in the rehabilitation unit. The goal is to get him back home. However, if he still requires significant help to perform ordinary activities of daily living, transferring and to be safe and not fall, he would likely have to go to [facility] prior to going home. AYAH/NURIA Voice ID: [id number] Report ID: [id number]
[2024-09-12 06:22] LABS: Absolute Basophils 0.1 K/uL (0-0.5); Absolute Eosinophils 0.5 K/uL (0-0.5); Absolute Lymphocytes (CBC) 1.7 K/uL (0.7-4.9); Absolute Monocytes 0.5 K/uL (0.1-1.3); Basophils % 1.3 % (0-1.3); Eosinophils % 5.5 % (0-4.4); Hematocrit 44.3 % (39.6-49.0); Hemoglobin 15.3 g/dL (13.6-17.9); MCHC 34.5 g/dL (32.0-36.0); MPV 8.5 fL (7.6-11.3); Monocytes % 5.7 % (3.3-12.3); Neutrophils % 68.5 % (41.7-73.7); Nucleated Red Blood Cells % 0.1 % (0-0); Platelets 194 thou/uL (152-406); RBC Red Blood Cell Count 5.09 M/uL (4.33-5.43); Red Cell Distribution Width 15.2 % (12.1-15.2)
[2024-09-12 06:44] LABS: Albumin 2.8 g/dL (3.4-5.0); Anion Gap 9.8 mEq/L (5.0-15.0); Magnesium 1.9 mg/dL (1.6-2.4); Potassium 3.8 mEq/L (3.5-5.1); Prealbumin 17.1 mg/dL (20-40)
--- NOTE | 2024-09-12 07:02 | PN ---
Date of Progress Note: 09/11/2024 Subjective: The patient was seen this morning for followup. No new complaints or problems reported by the patient. Denies any constipation. No abdominal pain, nausea, vomiting. Objective: Vital Signs: Reviewed. HEENT: Unremarkable. Lungs: Clear to auscultation. Heart: Sounds normal. Abdomen: Soft. Bowel sounds normal. No guarding, rigidity, tenderness, distention. Extremities: No leg edema. Impression: 1. Hypertension. 2. Constipation. 3. Stroke with right-sided hemiparesis. 4. Hyperlipidemia. Plan: We will continue physical therapy under guidance of Dr. Patel. Continue current antihypert ensive medication. Continue Senokot-S per order, and I will see him tomorrow for followup. ERIN/MODL Voice ID: [id number] Report ID: [id number]
[2024-09-12] MEDS: INSULIN REGULAR (HUMAN) 100 UNIT/ML SQ SCH (08:00)
--- NOTE | 2024-09-12 17:13 | PN ---
Date of Progress Note: 09/12/2024 Time Of Service: 1:20 p.m. Subjective: Mr. Sanches is in chair. He is happy with therapy so far, still needs a lot more impro vement before he is safe to be at home. Objective: No fevers, chills, nausea, vomiting. No myalgias, arthralgias. Physical Examination: Vital Signs: Blood pressure 140/78, pulse 86, respiratory rate of 16, temperature 98.2, oxygen satur ation 96%. General: Mr. Sanches is resting comfortably in chair. HEENT: Has left nasolabial fold decrease and some mild weakness upper and lower extremities from his stroke, but unchanged in terms of examination. Laboratory Studies: Complete blood count differential is unremarkable. White blood cell count 8.8, hemoglobin 15.3, platelets 194. Sodium 141, potassium 3.8, chloride 110, carbon dioxide 25, BUN 17, creatinine 0.85, glucose ranged from 116-165. Hemoglobin A1c of 7.3. Calcium 8.9, magnesium 1.9. A lbumin 2.8, prealbumin 17.1. X-ray And Imaging: No new x-rays or imaging. Medications: Medications have been reviewed and he is on a mild insulin sliding scale. Otherwise un changed. Progress Made With Physical, Occupational, And Speech Therapy: With physical therapy today, he ambul ated 70 feet, 80 feet, 20 feet and 50 feet with a rolling walker with minimum assistance. Mobilized wheelchair 120 feet with contact guard assistance, up and down 5 steps with minimum assistance. With occupational therapy, performed toilet transfers with contact guard assistance. Did hygiene in fron t of the sink with supervision. With speech, recalled 3 of 3 unrelated pictures after 1, 2 and 3 min utes. Working memory was demonstrated with 4 units of information with 60% accuracy and minimum assi stance. Assessment: Mr. Sanches is a 69-year-old patient with cardioembolic strokes. He has decreased mobi lity decreased physical functioning. He has prostate hypertrophy, dyslipidemia, hypertension, diabet es mellitus, stroke risk. Plan: Will continue with physical, occupational, and speech therapy 3.5 hours, [address] Roxana lewis is managing his comorbid condition medications including the Eliquis 5 mg twice daily, Norvasc 5 mg twice daily as well, clonidine 0.2 mg every 12 hours. He has Pepcid for GE reflux, Cozaar for help with blood pressure control along with Lopressor. He has milk of mag for constipation, Crestor for d yslipidemia, Senokot for constipation, and Flomax for his prostate hypertrophy. LB/MODL Voice ID: [id number] Report ID: [id number]
--- NOTE | 2024-09-12 23:08 | PN ---
Date of Progress Note: 09/12/2024 Subjective: The patient was seen this morning for followup. No new complaints or problems reported by him. Lying in bed, not in distress. Objective: Vital Signs: Reviewed. HEENT: Unremarkable. Lungs: Clear to auscultation. Heart: Sounds normal. Abdomen: Soft. Bowel sounds normal. No guarding, rigidity, tenderness, or distention. Extremities: No leg edema. Impression: 1. Stroke with right-sided hemiparesis. 2. Hypertension. 3. Hyperlipidemia. Plan: We will go ahead and continue physical therapy under guidance of Dr. Patel. Continue curre nt antihypertensive medication. Blood pressure is under very good control. Continue current cholest hemalatha medication. I will see him tomorrow for followup. Constipation is well controlled with current stool softener, Senokot-S and the patient reports having daily bowel movement with that. ERIN/MODL Voice ID: [id number] Report ID: [id number]
--- NOTE | 2024-09-13 11:08 | PN ---
Date of Progress Note: 09/13/2024 Subjective: The patient was seen this morning for followup. No new complaints or problems reported by the patient. was at bedside with him. No more constipation problem as it is well controlled with current stool softener. Objective: Vital Signs: Reviewed. HEENT: Unremarkable. Lungs: Clear to auscultation. Heart: Sounds normal. Abdomen: Soft. Bowel sounds normal. No guarding, rigidity, tenderness, distention. Extremities: No leg edema. Impression: 1. Stroke with right-sided hemiparesis. 2. Hypertension. 3. Constipation. 4. Hyperlipidemia. Plan: We will go ahead and continue current medical management. Continue physical therapy per maine jameson of Dr. Patel. Continue current stool softener. The patient is scheduled to go home on of this coming week. was at bedside today and she informed me that she would like to see the patient getting in and out of bed using his walker to go to the bathroom, which is a reasonable thin g to expect and a reasonable goal, so she is going to try to work with Physical Therapy to see if rox t is something that can be achieved prior to discharge for safety concerns and also told me that the bathroom at home, door is not wide enough for walker to go inside, so she will have to get some upgrades done for the bathroom door, which will allow eventually for him to take his walker inside th e bathroom because as we stand, he will be able to take his walker all the way up to the bathroom doo r that he will have to leave it outside and walk inside the bathroom, so what I suggested until she g ets the renovation done, she should have another small walker that always stays inside the bathroom a nd the patient can use that as soon as he puts his regular walker outside the bathroom door and likes that idea and she will take care of that for safety reasons. I will see him tomorrow for followup. ERIN/MODL Voice ID: [id number] Report ID: [id number]
--- NOTE | 2024-09-13 13:49 | P.RH.PN ---
Estimated Length of Stay: 16 Expected Discharge Date: 09/19/24 Discharge Disposition Plan: Home Family Support: Yes Detention Goal: Mobility, Transfers, Self Care Vital Signs: Last Vital Signs Temp 97.9 F 09/13/24 08:00 Pulse 89 09/13/24 08:36 Resp 16 09/13/24 08:00 BP 141/83 H 09/13/24 08:36 Pulse Ox 95 09/13/24 08:00 Laboratory: Laboratory Last Values WBC 8.80 thou/uL (4.3-10.9) 09/12/24 06:10 RBC 5.09 M/uL (4.33-5.43) 09/12/24 06:10 Hgb 15.3 g/dL (13.6-17.9) 09/12/24 06:10 Hct 44.3 % (39.6-49.0) 09/12/24 06:10 MCV 87.0 fL (80-100) 09/12/24 06:10 MCH 30.0 pg (27.0-35.0) 09/12/24 06:10 MCHC 34.5 g/dL (32.0-36.0) 09/12/24 06:10 RDW 15.2 % (12.1-15.2) 09/12/24 06:10 Plt Count 194 thou/uL (152-406) 09/12/24 06:10 MPV 8.5 fL (7.6-11.3) 09/12/24 06:10 Neutrophils % 68.5 % (41.7-73.7) 09/12/24 06:10 Lymphocytes % 19.0 % (15.3-44.8) 09/12/24 06:10 Monocytes % 5.7 % (3.3-12.3) 09/12/24 06:10 Eosinophils % 5.5 % (0-4.4) H 09/12/24 06:10 Basophils % 1.3 % (0-1.3) 09/12/24 06:10 Absolute Neutrophils 6.0 K/uL (1.8-8.0) 09/12/24 06:10 Absolute Lymphocytes 1.7 K/uL (0.7-4.9) 09/12/24 06:10 Absolute Monocytes 0.5 K/uL (0.1-1.3) 09/12/24 06:10 Absolute Eosinophils 0.5 K/uL (0-0.5) 09/12/24 06:10 Absolute Basophils 0.1 K/uL (0-0.5) 09/12/24 06:10 Sodium 141 mEq/L (136-145) 09/12/24 06:10 Potassium 3.8 mEq/L (3.5-5.1) 09/12/24 06:10 Chloride 110 mEq/L (98-107) H 09/12/24 06:10 Carbon Dioxide 25 mEq/L (21-32) 09/12/24 06:10 Anion Gap 9.8 mEq/L (5.0-15.0) 09/12/24 06:10 BUN 17 mg/dL (7-18) 09/12/24 06:10 Creatinine 0.85 mg/dL (0.70-1.30) 09/12/24 06:10 Est GFR (CKD-EPI) 93 ml/min (=/>90) 09/12/24 06:10 Glucose 145 mg/dL (74-106) H 09/12/24 06:10 POC Glucose 136 mg/dL (65-120) H 09/13/24 11:37 Hemoglobin A1c 7.3 % (4.2-6.3) H 09/12/24 06:10 Calcium 8.9 mg/dL (8.5-10.1) 09/12/24 06:10 Magnesium 1.9 mg/dL (1.6-2.4) 09/12/24 06:10 Albumin 2.8 g/dL (3.4-5.0) L 09/12/24 06:10 Prealbumin 17.1 mg/dL (20-40) L 09/12/24 06:10 Urine Color Light-yellow (Yellow) 09/06/24: Urine Clarity Clear (Clear) 09/06/24: Urine pH 6.5 (5.0-7.0) 09/06/24 17: Ur Specific [place] 1.013 (1.005-1.030) 09/06/24 17:25 Glucose (UA)(Auto) 4+ (over) (Negative) H 09/06/24 17: Urine Ketones Negative (Negative) 09/06/24 17:25 Urine Blood Negative (Negative) 09/06/24 17:25 Urine Nitrite Negative (Negative) 09/06/24 17: Urine Bilirubin Negative (Negative) 09/06/24 17:25 Urine Urobilinogen Normal (Normal) 09/06/24 17:25 Ur Leukocyte Esterase Negative Carina/uL (Negative) 09/06/24 17:25 Urine RBC <5 /HPF (None Seen) 09/06/24 17:25 Urine WBC <5 /HPF (<5) 09/06/24 17:25 Ur Squamous Epith Cells None seen /HPF (None Seen) 09/06/24 17:25 Urine Bacteria None seen /HPF (<20) 09/06/24 17:25 Urine Yeast (Budding) Trace /HPF (None Seen) H 09/06/24 17: Urine Culture Reflexed Not needed 09/06/24 17: Urine Total Protein 1+ (Negative) H 09/06/24 17:25 Weight: 195 lb Wound Present: Yes Closed Surgical Incision Present: No Negative Pressure Wound Therapy Present: No Physician Update: Labs reviewed and are stable. Mild malnutrition with elevated glucose. BIMS 15, SLUMS 17, moderate cognitive deficits, mild dysarthria and dysphagia. He could now be upgraded to thin liquids. Very motivated to do well. Min to mod assit toileting, showering, lower and upper body dressing. RW 100' min assist. Transfers are min assist. Up and down 5 steps with min assist. Summary: Patient's care plan and superintendent container terminal goals have been reviewed and revised as necessary. Please see the Rehabilitation Signature page for all necessary signatures.
--- NOTE | 2024-09-14 23:14 | PN ---
Date of Progress Note: 09/14/2024 Subjective: The patient was seen this morning for followup. was present with him at bedside. No new complaints or problems reported. Objective: Vital Signs: Reviewed. HEENT: Unremarkable. Lungs: Clear to auscultation. Heart: Sounds normal. Abdomen: Soft. Bowel sounds normal. No guarding, rigidity, tenderness, distention. Extremities: No leg edema. Impression: 1. Type 2 diabetes mellitus. 2. Hypertension. 3. Stroke with right-sided hemiparesis. 4. Hyperlipidemia. Plan: The patient did get his Mounjaro injection this week on Monday, his reports. We will co ntinue current antihypertensive medication. Fingerstick blood sugar readings reviewed. Diabetes is under excellent control. Continue current statin therapy. Continue current stool softener for const ipation, which has helped to control it well. We will continue physical therapy under guidance of Dr Marni Patel. I did talk to patient's today to communicate with physical therapist to see if use of hemiwalker will be worth using it for him at home since he might have some difficulty getting his regular walker inside the bathroom. I will see him tomorrow for followup. ERIN/MODL Voice ID: [id number] Report ID: [id number]
--- NOTE | 2024-09-15 11:58 | PN ---
Date of Progress Note: 09/15/2024 Subjective: The patient was seen this morning for followup. No new complaints or problems reported by patient, lying in bed, not in any distress. No more constipation problem with the use of stool s oftener on a daily basis. Objective: Vital Signs: Reviewed. HEENT: Unremarkable. Lungs: Clear to auscultation. Heart: Sounds normal. Abdomen: Soft. Bowel sounds normal. No guarding, rigidity, tenderness, distention. Extremities: No leg edema. Impression: 1. Stroke with right-sided hemiparesis. 2. Hypertension. 3. Hyperlipidemia. 4. Type 2 diabetes mellitus. 5. Chronic anticoagulation therapy. Plan: We will continue Eliquis 5 mg 2 times a day. Continue current antihypertensive medication and statin therapy. Continue physical therapy under guidance of Dr. Patel. The patient takes weekly Mounjaro for diabetes management and he is doing very well with that. Today, on exam, his strength in both lower extremity was equal and I did not appreciate any weakness in the right lower extremity, so that has shown significant improvement. His power in right upper extremity is also better today, it is 4+/5, and compared to before, this has improved. Details were discussed with the patient's , who was at bedside. ERIN/MODL Voice ID: [id number] Report ID: [id number]
--- NOTE | 2024-09-16 20:04 | PN ---
Date of Progress Note: 09/16/2024 Time Of Service: 1:10 p.m. Subjective: Mr. Sanches is lying in bed. He is in between therapy sessions, has no new complaints. Says he is somewhat tired with therapy, but does not report any new issues. No chest pain. No sig nificant shortness of breath. Still has diffuse weakness of lower extremities and the left side does have the impact of the patient's stroke. Review of Systems: No fevers, chills, nausea, vomiting, myalgias, arthralgias, rash. Physical Examination: Vital Signs: Blood pressure 140/71, pulse 70, respiratory rate 18, temperature 97.9, oxygen saturati on 95%. Weight 195 pounds, height 5 feet 9 inches, BMI 28.8. General: Mr. Sanches is lying comfortably in bed. He is appears to be in no acute distress. No ne w deficits noted. HEENT: Asymmetry of the face is unchanged. Neuro: Upper and lower extremities strength, sensation, and coordination are unchanged. Laboratory Studies: Blood sugars ranged from 124 to 155. X-ray/imaging: No new x-rays or imaging. Medications: Medications have been reviewed. They are unchanged. Dr. Del Angel, his primary care physic nate, is managing his medications. Progress Made With Physical, Occupational, And Speech Therapy: With physical therapy today, he did s ihps-of-wkvmd transfers and was at standby assistance towards independence with a rolling walker, did show improved strength. The patient's was present throughout the session while he worked with therapy. He ambulated 90 feet, 174 feet, 100 feet with contact guard assistance with a rolling walke r. He is able to go up and down 13 steps with contact guard assistance using bilateral handrails, go od sequencing while he was ambulating. With his speech, he recalled 3 unrelated pictures and 2 of 3 after a minute and was able to do so on 2 attempts. He used convergent naming with 85% accuracy. Assessment: Mr. Sanches is a 69-year-old patient in the rehabilitation unit with multiple likely ca rdiogenic strokes, which are small in nature and did not significantly impact his strength with affec nakia speed of processing, cognitive functioning, balance, coordination, and gait. However, he is doin g very well so far, but still has a long way to go to be safe at home. He needs to continue therapy aggressively so that he may go home and finish therapy with Home Health and perhaps after that may be able to do outpatient therapy. Again, the goal for him in therapy is for him to go home and work wi th his . Mr. Sanches is to be discharged home and Dr. Del Angel, his primary care physician, will pu t his discharge and he will continue therapy likely by Home Health. Physical, occupational, and spee ch therapy is recommended and stroke risk reduction specially for atrial fibrillation should be willian nued. He requires followup with Cardiology. He does have beta-storm for heart rate control. Dysl ipidemia treated with Crestor, Flomax for prostate hypertrophy, Pepcid for GE reflux. He has Eliquis 5 mg twice daily for his DVT and stroke risk reduction. LB/MODL Voice ID: [id number] Report ID: [id number]
--- NOTE | 2024-09-16 20:19 | PN ---
Date of Progress Note: 09/16/2024 Subjective: The patient was seen this morning for followup. He was lying in bed, not in distress. Denies any complaints. Objective: Vital Signs: Reviewed. HEENT: Unremarkable. Lungs: Clear to auscultation. Heart: Sounds normal. Abdomen: Soft. Bowel sounds normal. No guarding, rigidity, tenderness, distention. Extremities: No leg edema. Impression: 1. Stroke with right-sided hemiparesis. 2. Hypertension. 3. Hyperlipidemia. 4. Type 2 diabetes mellitus. Plan: Continue current medication and physical therapy under guidance of Dr. Patel. We will cont inue current stool softener, current antihypertensive medication. Blood pressure is under much jassi r control than before and I will see him tomorrow for followup. Fingerstick blood sugar readings rev iewed and the patient takes Mounjaro once a week, last dose was on Monday. ERIN/MODL Voice ID: [id number] Report ID: [id number]
--- NOTE | 2024-09-17 15:12 | PN ---
Date of Progress Note: 09/17/2024 Time Of Service: 1:25 p.m. Subjective: Mr. Sanches is lying in bed in between therapy sessions. He is actually doing very wel l today. He says his progress is much better. He did not lose his balance as he was ambulating arou nd the unit. Gait belt was in place, felt his endurance was also better, but still needed more time to improve. His articulation is also improving. Objective: No fevers, chills, nausea, vomiting, myalgias, arthralgias, rash. Physical Examination: Vital Signs: Blood pressure 105/61, pulse 79, respiratory rate 18, temperature 97.6, oxygen saturati on 94%. Weight 195 pounds, height 5 feet 9 inches, BMI 28.8. General: Again, Mr. Sanches is lying in bed. He is in no acute distress. Neuro: He still has the left nasolabial fold decrease, but has good articulation at intelligible and his left upper extremity strength not worsened, right side as well. Again, he is making good progre ss with his therapy overall. Laboratory Studies: Blood sugars ranged from 136 to 181. X-ray/imaging: No new x-rays or imaging. Progress Made With Physical, Occupational, And Speech Therapy: With physical therapy, he did excelle nt compared to where he was previously. He was up and down 13 steps with contact guard assistance, a mbulated 174 feet, 90 feet, and 100 feet with contact guard assistance using a rolling walker. Empha sis placed on upright posturing, did gzidk-td-mldda transfers with standby assistance to independent level. With occupational therapy, bed mobility and bed to wheelchair transfers done with contact gua rd assistance. He did tub shower activity with minimum assistance. Lower body dressing done with co ntact guard assistance. With speech, short-term memory issues were addressed recalling 2 of 3 unrela nakia pictures after 1 minute and then on a second attempt, did retrieve the other. He used convergent naming with 80% accuracy. Assessment: Mr. Sanches is a 69-year-old patient in rehabilitation unit with cardiogenic strokes th at are small, but leaving him still with some moderate deficits. He has dysarthria and dysphagia, wh ich is improved. He has unstable gait or balance, ataxia, tendency to fall, but despite that he is m aking good progress overall. He still has decreased mobility, decreased physical functioning. In ad dition to fibrillation on Eliquis, he has clonidine as needed for elevated blood pressure above 160, 0.1 mg every 4 hours, Pepcid for GE reflux. He has Cozaar for hypertension control, milk of magnesia for his laxative, Lopressor 50 mg twice daily, Centrum Silver, Crestor, Senokot, and Flomax. His co morbidities are managed by Dr. Del Angel. Plan: In terms of plan, he will continue with physical, occupational, and speech therapy as noted. We will follow up after discharge with Dr. Del Angel. He will follow up in Dr. Patel's office for new stroke followup and his overall therapy should continue, physical, occupational, and speech therapy a fter his discharge as he has a significant way to go to become safe. However, the plan is for him to go back home and work with therapy and with the help of his family. AYAH/NURIA Voice ID: [id number] Report ID: [id number]
[2024-09-19 05:49] LABS: Absolute Eosinophils 0.5 K/uL (0-0.5); Absolute Lymphocytes (CBC) 1.8 K/uL (0.7-4.9); Absolute Monocytes 0.5 K/uL (0.1-1.3); Absolute Neutrophil 4.3 K/uL (1.8-8.0); Basophils % 0.2 % (0-1.3); Eosinophils % 6.7 % (0-4.4); Hematocrit 42.1 % (39.6-49.0); Hemoglobin 14.3 g/dL (13.6-17.9); Lymphocytes % 25.8 % (15.3-44.8); MCH 29.5 pg (27.0-35.0); MCV 86.9 fL (80-100); MPV 8.4 fL (7.6-11.3); Monocytes % 6.9 % (3.3-12.3); Neutrophils % 60.4 % (41.7-73.7); Nucleated Red Blood Cells % 0.1 % (0-0); Platelets 212 thou/uL (152-406); RBC Red Blood Cell Count 4.84 M/uL (4.33-5.43); Red Cell Distribution Width 15.4 % (12.1-15.2)
[2024-09-19 06:13] LABS: Albumin 2.7 g/dL (3.4-5.0); Anion Gap 7.6 mEq/L (5.0-15.0); Magnesium 1.9 mg/dL (1.6-2.4); Potassium 3.6 mEq/L (3.5-5.1); Prealbumin 17.8 mg/dL (20-40)
--- NOTE | 2024-09-19 06:15 | PN ---
Date of Progress Note: 09/18/2024 Subjective: The patient was seen this morning for followup. No new complaints or problems reported. Lying in bed, not in any distress. Objective: Vital Signs: Reviewed. HEENT: Unremarkable. Lungs: Clear to auscultation. Heart: Sounds normal. Abdomen: Soft. Bowel sounds normal. No guarding, rigidity, tenderness, distention. Extremities: No leg edema. Impression: 1. Stroke with right-sided hemiparesis. 2. Hypertension. 3. Hyperlipidemia. 4. Type 2 diabetes mellitus. Plan: We will go ahead and continue current antihypertensive medication. Blood pressure remains sta ble. Continue statin therapy and physical therapy to be provided under guidance of Dr. Patel. Th e patient is scheduled to go home tomorrow. I will see him tomorrow morning for followup. ERIN/MODL Voice ID: [id number] Report ID: [id number]
[2024-09-19 08:45] VITALS: BP 134/66
[2024-09-19 08:52] VITALS: TEMP 98
--- NOTE | 2024-09-19 23:40 | DS ---
Date of Discharge: 09/19/2024 Brief History: The patient was seen this morning for followup. No new complaints or problems report ed by the patient, lying in bed, not in distress. Objective: Vital Signs: Reviewed. HEENT: Unremarkable. Lungs: Clear to auscultation. Heart: Sounds normal. Abdomen: Soft. Bowel sounds normal. No guarding, rigidity, tenderness, distention. Extremities: No leg edema. Neuro: No focal neurological deficits. Laboratory Data: Upon admission on rehab floor on 09/07/2024, WBC 9.6, hemoglobin 15.4, platelets 21 5 and last CBC today, WBC 7.10, hemoglobin 14.3, and platelets 212. For chemistry today, sodium 141, potassium 3.6, chloride 112, bicarb 25, BUN 12, creatinine 0.2, glucose 126, magnesium 1.9, serum al bumin 2.7 and on 09/07/2024, sodium 140, potassium 3.5, chloride 110, bicarb 23, BUN 15, creatinine 0 .85, glucose 138, and albumin 2.7. Hospital Course: A 69-year-old pleasant male patient, who was admitted to the rehab floor after his brief stay on medical floor with stroke causing right-sided hemiparesis. Please see dictated H and P for more information from medical floor and discharge summary for more details. After the patient w as brought to rehab floor, Dr. Patel from Rehab was consulted who managed the patient's physical t herapy. Medical problems remained stable. We continued his antihypertensive medication as well as s tatin therapy which he tolerated very well. He received Eliquis as anticoagulation. His stroke, we were not definitely sure about the underlying etiology of his stroke. He was taking Eliquis 2.5 mg 2 times a day as he has possibility of hypercoagulable state and with prior history of DVT, pulmonary embolism, he was taking maintenance anticoagulation therapy for preventive purpose with Eliquis 2.5 m g 2 times a day. At this time, we are concerned that this stroke could have been due to underlying a trial fibrillation, but we were not able to demonstrate that as we did not package pick up any atrial fibrill ation during this hospitalization, but there was definitely one of our concern about underlying etiol ogy, so the patient was given Eliquis, dose from 2.5 mg was raised to 5 mg 2 times a day and he was i nstructed to continue 5 mg twice a day dose from now on. The patient had right-sided weakness, which has almost completely resolved now with his therapy and time. His blood pressure was elevated when he first came to rehab, which has improved significantly. The patient was taking vancomycin 125 mg e very other day prior to this hospital admission, which he has not taken during this hospitalization a t all and in fact, he has not had any diarrhea, but has had some constipation requiring stool softene r like Senummot, so I did talk to the patient's today and informed her that when he goes home, I do not want him to restart his vancomycin and if the diarrhea problem comes back, then we will consid er that. Discharge Diagnoses: 1. Stroke with right-sided hemiparesis. 2. Hypertension. 3. Pulmonary nodule. 4. Type 2 diabetes mellitus. 5. Hyperlipidemia. 6. Malnutrition, moderate. 7. Coronary artery disease. 8. Gastroesophageal reflux disease. 9. Benign prostatic hypertrophy. 10. Osteoarthritis, multiple sites. Discharge Medications And Instructions: Continue all prior home medication except following changes: 1. Increase dose of Eliquis to 5 mg 2 times a day and take amlodipine 5 mg 2 times a day. 2. Follow up at my office in 1 week. Final Diagnoses: 1. . 2. . 3. . Total time spent 35 minutes. ERIN/NURIA Voice ID: [id number] Report ID: [id number]
== END 2024-09-19 10:00 | disposition home health service (06) | DRG 65 ==
LOC: 5TH 14:05
PROVIDERS: ADMIT Internal Medicine; ATTEND Internal Medicine
DX: I63.9 Cerebral infarction, unspecified (principal); E44.0 Moderate protein-calorie malnutrition; G81.91 Hemiplegia, unspecified affecting right dominant side; E78.5 Hyperlipidemia, unspecified; I10 Essential (primary) hypertension; I48.91 Unspecified atrial fibrillation; K59.00 Constipation, unspecified; E11.9 Type 2 diabetes mellitus without complications; I65.23 Occlusion and stenosis of bilateral carotid arteries; J44.9 Chronic obstructive pulmonary disease, unspecified; N40.0 Benign prostatic hyperplasia without lower urinary tract symptoms; K21.9 Gastro-esophageal reflux disease without esophagitis; I25.10 Atherosclerotic heart disease of native coronary artery without angina pectoris; G30.9 Alzheimer's disease, unspecified; F02.80 Dementia in other diseases classified elsewhere, unspecified severity, without behavioral disturbance, psychotic disturbance, mood disturbance, and anxiety; M19.90 Unspecified osteoarthritis, unspecified site; R13.10 Dysphagia, unspecified; R91.8 Other nonspecific abnormal finding of lung field; Z88.0 Allergy status to penicillin; Z79.01 Long term (current) use of anticoagulants; Z79.899 Other long term (current) drug therapy; Z68.28 Body mass index [BMI] 28.0-28.9, adult
CPT/HCPCS: 36415; 80048; 81001; 82040; 82947; 83036; 83735; 84134; 85025; 87086; 87088; 92507; 92523; 92526; 94010; 97110; 97112; 97116; 97129; 97161; 97165; 97530; 97542; J1815; J3590